=== PATIENT | male | born 1955 | race Hispanic/Latino ===

== ENCOUNTER 2016-06-10 14:59 | Inpatient (IN) | payer OTHER ==
[2016-06-10 16:03] LABS: Basophils % (Auto) 0.6 % (0.0-1.8); Eosinophils % (Auto) 5.2 % (0.0-4.3); Hemoglobin 16.3 gm/dl (11.8-15.2); Mean Corpuscular HGB Conc 34 % (32-34); Mean Corpuscular Hemoglobin 33 pg (28-32); Mean Corpuscular Volume 98 fl (84-94); Platelet Count 106 K/mm3 (140-440); Red Blood Count 4.91 M/mm3 (3.65-5.03); Red Cell Distribution Width 14.4 % (13.2-15.2); White Blood Count 6.1 K/mm3 (4.5-11.0)
[2016-06-10 16:06] LABS: Anion Gap 16 mmol/L; BUN/Creatinine Ratio 21.66; Blood Urea Nitrogen 13 mg/dL (9-20); Calcium 7.9 mg/dL (8.4-10.2); Carbon Dioxide 25 mmol/L (22-30); Chloride 102.1 mmol/L (98-107); Glucose 115 mg/dL (75-100); Potassium 4.2 mmol/L (3.6-5.0); Sodium 139 mmol/L (137-145)
[2016-06-10] MEDS ORDERED: MORPHINE IV ONE (20:57)
[2016-06-10] MEDS ORDERED: NITRO-BID 2% TP ONE (20:57)
[2016-06-10] MEDS ORDERED: ZOFRAN IV ONE (20:57)
[2016-06-10] MEDS ORDERED: ASPIRIN PO ONE (20:58)
--- NOTE | 2016-06-10 21:05 | Emergency Department Report ---
HPI - General Chief Complaint: Chest Pain Time Seen by Provider: 06/10/16 20:44 - HPI HPI: Room 26 The patient is a 60-year-old male presenting with chief complaint of chest pain the patient states his symptoms began 2 days ago (Friday evening) with chest discomfort that the patient thought was "indigestion." She states she took Prilosec but it did not help. The patient states he began to ease off but never resolved 04:00 yesterday morning. Patient states he took a trazodone and went to sleep. Yesterday the patient again have mild substernal chest discomfort and this morning at 11:00 after awakening the chest pain returned. The patient states the pain has moved from substernal to left chest. Patient does admit to slight shortness of breath but denies diaphoresis or nausea/ vomiting. Patient describes the pain as burning/squeezing in nature Location: Chest Duration: 2 days Quality: Squeezing/burning Severity: 3/10 Modifying factors: [see above] Context: [see above] Mode of transportation: Unknown ED Past Medical Hx - Past Medical History Previous Medical History?: Yes Hx Hypertension: Yes Hx Liver Disease: Yes (HEP C) Hx Arthritis: Yes Additional medical history: ALCOHOLIC. gallstones. obesity. CAD - Surgical History Past Surgical History?: Yes Additional Surgical History: L leg fracture repair (1970s). cardiac stent ~2014 - Family History Family history: no significant - Social History Smoking Status: Former Smoker (none 5 years) Substance Use Type: Prescribed - Medications Home Medications: Home Medications Medication Instructions Recorded Confirmed Last Taken Type Folic Acid [Folvite] 1 mg PO QDAY #30 tablet 12/14/14 07/30/15 Unknown Rx Metoclopramide [Reglan TAB] 10 mg PO Q6H PRN #30 tablet 12/14/14 07/30/15 Unknown Rx Metoprolol [Lopressor TAB] 50 mg PO BID #60 tablet 12/14/14 07/30/15 Unknown Rx Promethazine [Phenergan SUPPOS] 25 mg IA Q6H PRN #30 supp.rect 12/14/14 Unknown Rx Thiamine [Vitamin B-1] 100 mg PO QDAY #30 tablet 12/14/14 07/30/15 Unknown Rx oxyCODONE /ACETAMINOPHEN [Percocet 2 tab PO Q6H PRN #30 tablet 12/14/14 Unknown Rx 5/325 mg] Aspirin EC [Aspirin Enteric Coated 81 mg PO QDAY #30 tablet 08/03/15 Unknown Rx TAB] Cephalexin [Keflex] 500 mg PO Q12HR #10 cap 08/03/15 Unknown Rx Citalopram [Celexa] 20 mg PO QDAY #30 tablet 08/03/15 Unknown Rx Fluconazole [Diflucan TAB] 200 mg PO QDAY #10 tablet 08/03/15 Unknown Rx Pantoprazole [Protonix TAB] 40 mg PO BID #60 tablet 08/03/15 Unknown Rx SILVER sulfADIAZINE 400 GRAM 1 applicatio TP DAILY 10 Days 08/03/15 Unknown Rx [Thermazene 400 Gram] amLODIPine [Norvasc] 5 mg PO QDAY #30 tablet 08/03/15 Unknown Rx ED Review of Systems ROS: Stated complaint: CHEST PAIN Other details as noted in HPI Comment: All other systems reviewed and negative Constitutional: denies: chills, fever Eyes: denies: eye pain, eye discharge, vision change ENT: denies: ear pain, throat pain Respiratory: shortness of breath Cardiovascular: chest pain Endocrine: no symptoms reported Gastrointestinal: denies: abdominal pain, nausea, diarrhea Genitourinary: denies: urgency, dysuria Musculoskeletal: denies: back pain, joint swelling, arthralgia Skin: denies: rash, lesions Neurological: denies: headache, weakness, paresthesias Psychiatric: denies: anxiety, depression Hematological/Lymphatic: denies: easy bleeding, easy bruising Physical Exam - Physical Exam Vital Signs: Vital Signs 06/10/16 15:21 Temperature 97.7 F Pulse Rate 59 L Respiratory 20 Rate Blood Pressure 186/94 O2 Sat by Pulse 93 Oximetry Physical Exam: GENERAL: The patient is well-developed well-nourished male lying on stretcher not appearing to be in acute distress HEENT: Normocephalic. Atraumatic. Extraocular motions are intact. Patient has moist mucous membranes. NECK: Supple. Trachea midline CHEST/LUNGS: Clear to auscultation. There is no respiratory distress noted. HEART/CARDIOVASCULAR: Regular. There is no tachycardia. There is no gallop rub or murmur. ABDOMEN: Abdomen is soft, nontender. Patient has normal bowel sounds. There is no abdominal distention. SKIN: There is no rash. There is no diaphoresis. NEURO: The patient is awake, alert, and oriented. The patient is cooperative. The patient has normal speech and gait. MUSCULOSKELETAL: There is no evidence of acute injury. ED Course Vital Signs 06/10/16 15:21 Temperature 97.7 F Pulse Rate 59 L Respiratory 20 Rate Blood Pressure 186/94 O2 Sat by Pulse 93 Oximetry ED Medical Decision Making - Lab Data Result diagrams: 06/10/16 15:30 06/10/16 15:30 Laboratory Tests 06/10/16 06/10/16 06/10/16 15:30 15:30 18:29 WBC 6.1 RBC 4.91 Hgb 16.3 H Hct 48.0 H MCV 98 H MCH 33 H MCHC 34 RDW 14.4 Plt Count 106 L Lymph % (Auto) 26.7 Hinds % (Auto) 10.9 H Eos % (Auto) 5.2 H Baso % (Auto) 0.6 Lymph # 1.6 Hinds # 0.7 Eos # 0.3 Baso # 0.0 Seg Neutrophils % 56.6 Seg Neutrophils # 3.4 Sodium 139 Potassium 4.2 Chloride 102.1 Carbon Dioxide 25 Anion Gap 16 BUN 13 Creatinine 0.6 L Estimated GFR > 60 BUN/Creatinine Ratio 21.66 Glucose 115 H Calcium 7.9 L Troponin T < 0.010 < 0.010 - EKG Data -: EKG Interpreted by Me EKG shows normal: sinus rhythm Rate: normal - EKG Data When compared to previous EKG there are: no significant change Interpretation: unchanged when compared t (05/23/2013) - Radiology Data Radiology results: image reviewed (chest x-ray) interpreted by me: Chest x-ray-no focal infiltrates, no pneumothorax - Differential Diagnosis ACS, GERD, pericarditis, pneumothorax Critical care attestation.: If time is entered above; I have spent that time in minutes in the direct care of this critically ill patient, excluding procedure time. ED Disposition Clinical Impression: Chest pain Disposition: OP ADMITTED IP TO THIS HOSP Is pt being admited?: Yes Does the pt Need Aspirin: Yes Condition: Fair Instructions: Chest Pain (ED) Referrals: PRIMARY CARE,MD [Primary Care Provider] - 3-5 Days Time of Disposition: 21:20 (hospitalist paged)
[2016-06-10] MEDS ORDERED: MILK OF MAGNESIA PO PRN (23:05)
[2016-06-10] MEDS ORDERED: DULCOLAX PR PRN (23:05)
[2016-06-10] MEDS ORDERED: TYLENOL PO PRN (23:05)
[2016-06-10] MEDS ORDERED: ZOFRAN IV PRN (23:05)
--- NOTE | 2016-06-10 23:08 | History and Physical Report ---
History of Present Illness Date of examination: 06/10/16 Date of admission: 06/10/16 21:23 History of present illness: Patient is a 59-year-old male with known coronary artery disease, hepatitis C, hypertension, erosive esophagitis/gastritis comes emergency room with complaint of chest pain. Pain is in the epigastric area which started on resection night , intermittent in nature lasting for hours, intensity 5/10, radiating to the left substernal area. He cannot identify exacerbating or relieving factors. Admits to shortness breath, palpitation, no nausea vomiting, diaphoresis Patient denies cough, abdominal pain, hematochezia, dysuria, frequency, focal weakness, dysarthria, fever chills, polydipsia polyuria, hot or cold intolerance , easy bruisability, or rash or bleeding from mucosal membrane, rhinorrhea, epistaxis, earache, tinnitus, blurry vision, eye discharge, anxiety, depression. Other review of systems negative Past Surgical History:left knee surgery in the past) Social history: denies any tobacco, alcohol, drugs Family history: diabetes, hypertension Medications and Allergies Allergies Allergy/AdvReac Type Severity Reaction Status Date / Time No Known Allergies Allergy Verified 07/24/14 10:24 Home Medications Medication Instructions Recorded Confirmed Last Taken Type Metoprolol [Lopressor TAB] 50 mg PO BID #60 tablet 12/14/14 06/10/16 06/10/16 Rx Aspirin EC [Aspirin Enteric Coated 81 mg PO QDAY #30 tablet 08/03/15 06/10/16 Rx TAB] Prasugrel [Effient] 10 mg PO QDAY 06/10/16 06/10/16 06/10/16 History Pravastatin Sodium [Pravastatin] 40 mg PO QHS 06/10/16 06/10/16 06/10/16 History Active Meds: Active Medications Aspirin (Halfprin Ec) 81 mg PO QDAY JONATHAN Metoprolol Tartrate (Lopressor) 50 mg PO BID JONATHAN Prasugrel (Effient) 10 mg PO QDAY JONATHAN Simvastatin (Zocor) 20 mg PO QHS [facility] Exam - Physical Exam Narrative exam: Gen. appearance: Patient lying in bed, no apparent distress HEENT: Normocephalic, atraumatic, pupils equally round and reactive to light, extraocular movement intact, and no sclericterus,. No JVD or thyromegaly or nodule,neck supple, no carotid bruit ,mucous membranes moist, no exudate or erythema Heart: S1, S2, regular rate and rhythm Lungs: Clear to auscultation bilaterally, breathing comfortable Abdomen: Positive bowel sounds, nontender, nondistended, no organomegaly Extremity: No edema, cyanosis, clubbing Skin: No rash, nodules, warm, dry Neuro: Oriented 3, cranial nerves II-12 intact, speech is fluent, motor and sensory intact - Constitutional Vitals: Temp Pulse Resp BP Pulse Ox 97.6 F 56 L 20 152/71 96 06/10/16 21:40 06/10/16 22:16 06/10/16 21:40 06/10/16 22:16 06/10/16 21:40 Results - Labs CBC & Chem 7: 06/10/16 15:30 06/10/16 15:30 - Imaging and Cardiology EKG: image reviewed Chest x-ray: image reviewed Assessment and Plan Unstable angina Coronary artery disease Hypertension Hep C Admits medicine Check cardiac enzymes, consult cardiology Continue appropriate outpatient medications, start IV morphine, DVT prophylaxis
[2016-06-11 03:10] LABS: Creatine Kinase 47 units/L (55-170)
[2016-06-11 03:12] LABS: Creatine Kinase MB < 1.0 ng/mL (0.0-4.0)
--- NOTE | 2016-06-11 04:15 | Admit Criteria Form ---
Admission Criteria Documentation: CARDIOLOGY GRG Clinical Indications for Admission to Inpatient Care ( Place 'X' for any and all applicable criteria): Hospital admission is needed for appropriate care of the patient because of ANY ONE of the following (1): [ ] I. Hemodynamic instability as indicated by ALL of the following (1)(2)(3) (4)(5) [ ]a) Vital signs or other findings not as expected for chronic patient condition or baseline [ ]b) Instability indicated by ANY ONE of the following: [ ]i) Hypotension [ ]ii) Symptomatic Tachycardia unresponsive to treatment ( e.g., analgesia, fluids, sedation as indicated) [ ]iii) Inadequate perfusion indicated by ANY ONE of the following: [ ] 1) Lactic acidosis (> 2 mmol/L) [ ] 2) New abnormal capillary refill (> 3 seconds) [ ] 3) Reduced urine output [ ] 4) New altered mental status [ ]iv) Orthostatic vital sign changes unresponsive to treatment (e.g., fluids) [ ]v) IV inotropic or vasopressor medication required to maintain adequate blood pressure or perfusion [ ] II. Severe heart failure as indicated by ANY ONE of the following(17)(18) [ ]a) Respiratory distress [ ]b) Hypotension [ ]c) Anasarca (refractory to outpatient therapy) [ ]d) Cardiac arrhythmias of immediate concern [ ]e) Myocardial ischemia [ ] III. Cardiac arrhythmias or findings of immediate concern indicated by ANY ONE of the following (19)(20): [ ] a) Heart rhythms that are inherently dangerous or unstable indicated by ANY ONE of the following (21)(22)(23): [ ] i) Resuscitated ventricular fibrillation or cardiac arrest [ ] ii) Ventricular escape rhythm [ ] iii) Sustained ventricular tachycardia (30 seconds or more of ventricular rhythm at greater than 100 beats per minute) [ ] iv) Nonsustained ventricular tachycardia and ANY ONE of the following: [ ] 1) Suspected cardiac ischemia as cause or consequence of ventricular tachycardia [ ] 2) In setting of acute myocarditis [ ] b) Unstable cardiac conduction defects indicated by ANY ONE of the following(23)(24)(25) [ ] i) Type II second-degree atrioventricular block [ ]ii) Third-degree atrioventricular block [ ]iii) New-onset left bundle branch block with suspected myocardial ischemia [ ]c) Any heart rhythm and ANY ONE of the following (21)(22)(26)(27) (28) [ ] i) Continuous long-term ECG monitoring needed (e.g., initiation of drug requiring monitoring for more than 24 hours) [ ] ii) Patient has automatic implanted cardioverter defibrillator that is repeatedly firing, malfunctioning, or in need of immediate adjustment of settings beyond the scope of ambulatory or observation care [ ]d) Heart rhythms of concern due to ANY ONE of the following: [ ] i) Hypotension [ ] ii) Respiratory distress [ ] iii) Association with other significant symptoms (e.g., bradycardia with syncope or ongoing dizziness, supraventricular tachycardia with chest pain (14)(15)(17) [ ] IV. Monitoring for cardiac contusion beyond the scope of observation care needed [A](30)(31)(32) [ ] V. Surgical or device complication (e.g., valve replacement complication , pacemaker dysfunction) (35)(41)(44)(45)(46) [ ] . Inpatient palliative care needed. [B](49) Also use Inpatient Palliative Care Criteria [ ] VII. Nonbacterial thrombotic (marantic) endocarditis (36)(43)(47)(48) [X ] VIII. Cardiology condition, symptom, or finding for which emergency and observation care has failed or are not considered appropriate. [ ] IX. Acute valvular disease requiring inpatient as indicated by ANY ONE of the following (41) [ ]a) Acute valvular regurgitation (42) [ ]b) Noninfectious valvulitis (43) [ ]c) Obstructive valve thrombosis [ ]d) Paravalvular leak [ ]e) Other significant valvular disorder remaining after emergency or observation level of care (as appropriate) [ ]X. Pericardial disease requiring inpatient treatment as indicated by ANY ONE of the following (33)(34)(35)(36)(37) [ ]a) Suspected tamponade (38)(39)(40) [ ]b) Hemopericardium [ ]c) Other significant pericardial disorder remaining after emergency or observation level of care (as appropriate) [ ] XI. Cardiac ischemia beyond scope of emergency and observation care. [ ] XII. Hypertension requiring inpatient treatment as indicated by ANY ONE of the following (6)(7)(8) [ ]a) SBP greater than 220 mm Hg or DBP greater than 120 mmHg despite treatment [ ]b) SBP greater than 140 mm Hg or DBP greater than 100 mm Hg with evidence of acute end organ damage as indicated by ANY ONE of the following [ ] i) Altered mental status [ ] ii) Acute renal failure as indicated by new onset of ANY ONE of the following (9)(10)(11)(12)(13) [ ]1) 3-fold rise in serum creatinine from baseline [ ]2) Serum creatinine greater than 4 mg/dL ( 354 micromoles/L) with acute rise greater than 0.5 mg/dL (44.2 micromoles/L) [ ]3) Reduction of more than 75% in estimated glomerular filtration rate from baseline [ ]4) Estimated glomerular filtration rate less than 35 mL/min/1.73m2 (0.59 mL/sec/1.73m2) in child up to 18 years of age [ ]5) Cessation of urine output indicated by ALL of the following [ ]A. Adequate volume status [ ]B. Inadequate urine output as indicated by ANY ONE of the following [ ]a. Urine output less than 0.3 mL/kg/hr for 24 hours [ ]b. Anuria (urine output less than 0.1 mL/kg/hr) for 12 hours [ ] iii) Aortic dissection [ ] iv) Myocardial Ischemia [ ] v) Left ventricular heart failure [ ]vi) Retinal Hemorrhage [ ]vii) Other significant finding [ ]c) Hypertension in child requiring inpatient treatment as indicated by ALL of the following(14)(15)(16) [ ] i) Outpatient treatment not effective, not available, or not appropriate [ ]ii) SBP or DBP greater than 95th percentile for age [ ]iii) Evidence of acute end organ damage as indicated by ANY ONE of the following [ ]1) Altered mental status [ ]2) Acute renal failure as indicated by new onset of ANY ONE of the following(9)(10)(11)(12)(13) [ ]A. 3-fold rise in serum creatinine from baseline [ ]B. Serum creatinine greater than 4 mg/dL (354 micromoles/L) with acute rise greater than 0.5 mg/dL (44.2 micromoles/L) [ ]C. Reduction of more than 75% in estimated glomerular filtration rate from baseline [ ]D. Estimated glomerular filtration rate less than 35 mL/min/1.73m2 (0.59 mL/sec/1.73m2) in child up to 18 years of age [ ]E. Cessation of urine output indicated by ALL of the following [ ]a. Adequate volume status [ ]b. Inadequate urine output as indicated by ANY ONE of the following [ ]i) Urine output less than 0.3 mL/kg/hr for 24 hours [ ]ii) Anuria ( urine output less than 0.1 mL/kg/hr) for 12 hours [ ]3) Severe headache [ ]4) Visual disturbance [ ]5) Retinal hemorrhage [ ]6) Other significant finding [ ]XIII. Complications of transplanted heart indicated by ANY ONE of the following(61): [ ]a) Acute graft rejection requiring inpatient management (eg, intravenous immunosuppression)(62)(63) [ ]b) Acute graft heart failure indicated by ANY ONE of the following(64): [ ]i) Hemodynamic instability [ ]ii) Cardiac arrhythmias of immediate concern [ ]iii) Pulmonary edema that is very severe (eg, mechanical ventilation needed, imminent or likely, need for 100% oxygen to keep oxygen saturation above 90%) [ ]iv) Pulmonary edema that is persistent as indicated by ALL of the following: [ ]1) New need for oxygen therapy to keep oxygen saturation above 90% (or increased FiO2 need from baseline) [ ]2) Has not improved sufficiently with emergency department or observation care IV diuretics or other heart failure treatments[E] [ ]v) Altered mental status that is severe or persistent [ ]vi) Increased creatinine (new on laboratory test) with reduction of more than 50% in estimated glomerular filtration rate from baseline [ ]vii) Progressively (ongoing) rising creatinine (known from past laboratory test) with reduction of more than 25% in estimated glomerular filtration rate from baseline [ ]viii) Acute renal failure [ ]ix) Acute peripheral ischemia (eg, examination shows pulseless, cool, mottled, or cyanotic extremity) [ ]x) Pulmonary artery catheter monitoring needed [ ]xi) Other sign or symptom of heart failure requiring inpatient treatment (ie, too severe or not responsive to outpatient and observation care treatment) [ ]c) Infection requiring inpatient management (eg, Hemodynamic instability, need for intravenous antimicrobial treatment)(66)(67)(68)(69)(70) [ ]d) Cardiac allograft vasculopathy requiring inpatient management ( eg evidence of cardiac ischemia)(71) [ ]e) Other complication of transplanted heart (eg, stroke, severe pulmonary hypertension, severe valvular dysfunction) requiring inpatient management(72) The original [facility] [employer] content created by [facility] has been revised. The portions of the content which have been revised are identified through the use of italic text or in bold, and [facility] has neither reviewed nor approved the modified material. All other unmodified content is copyright [facility] [employer]. Please see references footnoted in the original [facility] [employer] edition 2016 Admission Criteria Met: Yes
[2016-06-11 05:32] LABS: Anion Gap 15 mmol/L; Blood Urea Nitrogen 16 mg/dL (9-20); Calcium 8.1 mg/dL (8.4-10.2); Carbon Dioxide 29 mmol/L (22-30); Chloride 102.8 mmol/L (98-107); Glucose 119 mg/dL (75-100); Potassium 4.6 mmol/L (3.6-5.0); Sodium 142 mmol/L (137-145)
[2016-06-11 05:39] LABS: Basophils % (Auto) 0.7 % (0.0-1.8); Eosinophils % (Auto) 4.3 % (0.0-4.3); Hemoglobin 15.5 gm/dl (11.8-15.2); Mean Corpuscular HGB Conc 34 % (32-34); Mean Corpuscular Hemoglobin 33 pg (28-32); Mean Corpuscular Volume 98 fl (84-94); Red Blood Count 4.69 M/mm3 (3.65-5.03); Red Cell Distribution Width 14.1 % (13.2-15.2); White Blood Count 7.1 K/mm3 (4.5-11.0)
[2016-06-11 06:01] LABS: Platelet Count 95 K/mm3 (140-440)
--- NOTE | 2016-06-11 08:28 | XRay Report ---
AP CHEST : 06/10/16 14:59:00 CLINICAL: Chest pain. COMPARISON:07/29/15 FINDINGS: Stable mild cardiomegaly. Normal pulmonary vessels. The lungs are normally expanded and clear. The bones and soft tissues are unremarkable. IMPRESSION: Mild cardiomegaly but no CHF.
[2016-06-11] MEDS ORDERED: LEXISCAN IV ONE ×2 (08:45→09:08)
[2016-06-11 09:03] LABS: Creatine Kinase 49 units/L (55-170)
[2016-06-11 09:06] LABS: Creatine Kinase MB < 1.0 ng/mL (0.0-4.0)
[2016-06-11] MEDS ORDERED: EFFIENT PO SCH (10:00)
[2016-06-11] MEDS ORDERED: LOPRESSOR PO SCH (10:00)
[2016-06-11] MEDS ORDERED: HALFPRIN EC PO SCH (10:00)
[2016-06-11] MEDS ORDERED: NORCO 5/325 PO PRN (12:00)
--- NOTE | 2016-06-11 14:27 | Consultation ---
History of Present Illness Consult date: 06/11/16 Requesting physician: GORDY JACQUES Consult reason: chest pain History of present illness: The patient is a 60 year old male who presented with complaints of intermittent substernal chest pain ongoing since Friday. He states the pain "feels like indigestion" but is unable to identify any exacerbating or relieving factors. He states he took Prilosec at home with no improvement in his pain. No shortness of breath, palpitations, nausea, vomiting or diaphoresis. Troponin negative x 4. Lexiscan thallium stress test this morning was negative for ischemia. In 08/2014, he underwent cardiac cath and PCI of his mid OM with CHLOÉ. Cath revealed 50% proximal and 50% mid-distal RCA lesion. Past History Past Medical History: CAD, hepatitis (Hepatitis C), hypertension, hyperlipidemia , other (pancreatitis, alcoholic gastritis/esophagitis) Past Surgical History: PTCA, Other (left knee surgery) Social history: lives with family. denies: smoking, alcohol abuse, prescription drug abuse, IV drug use, full code Family history: no significant family history Medications and Allergies Allergies Allergy/AdvReac Type Severity Reaction Status Date / Time No Known Allergies Allergy Verified 07/24/14 10:24 Home Medications Medication Instructions Recorded Confirmed Last Taken Type Metoprolol [Lopressor TAB] 50 mg PO BID #60 tablet 12/14/14 06/10/16 06/10/16 Rx Aspirin EC [Aspirin Enteric Coated 81 mg PO QDAY #30 tablet 08/03/15 06/10/16 Rx TAB] Prasugrel [Effient] 10 mg PO QDAY 06/10/16 06/10/16 06/10/16 History Pravastatin Sodium [Pravastatin] 40 mg PO QHS 06/10/16 06/10/16 06/10/16 History Active Meds: Active Medications Acetaminophen (Tylenol) 650 mg PO Q4H PRN PRN Reason: Pain MILD(1-3)/Fever >100.5/NORIEGA Acetaminophen/Hydrocodone Bitart ([place] 5/325) 1 each PO Q6H PRN PRN Reason: Pain, Moderate (4-6) Last Admin: 06/11/16 11:54 Dose: 1 each Aspirin (Halfprin Ec) 81 mg PO QDAY JONATHAN Last Admin: 06/11/16 13:24 Dose: 81 mg Bisacodyl (Dulcolax) 10 mg [place] QDAY PRN PRN Reason: Constipation unrelieved by [facility] Magnesium Hydroxide (Milk Of Magnesia) 30 ml PO Q4H PRN PRN Reason: Constipation Metoprolol Tartrate (Lopressor) 50 mg PO BID [facility] Ondansetron HCl (Zofran) 4 mg IV Q8H PRN PRN Reason: N/V unrelieved by Reglan Prasugrel (Effient) 10 mg PO QDAY JONATHAN Simvastatin (Zocor) 20 mg PO QHS [facility] Review of Systems Constitutional: no fever, no chills Ears, nose, mouth and throat: no nasal congestion, no nasal discharge, no sinus pressure Cardiovascular: chest pain, no palpitations Respiratory: no cough, no congestion, no wheezing Gastrointestinal: no abdominal pain, no nausea, no vomiting, no diarrhea Genitourinary Male: no dysuria, no hematuria Musculoskeletal: no neck stiffness, no neck pain, no myalgias Integumentary: no rash, no pruritis Neurological: no parathesias, no numbness, no tingling, no headaches Endocrine: no cold intolerance, no heat intolerance Hematologic/Lymphatic: no easy bruising, no easy bleeding Allergic/Immunologic: no urticaria, no wheezing Physical Examination Vital Signs Temp Pulse Resp BP Pulse Ox 97.7 F 59 L 20 186/94 93 06/10/16 15:21 06/10/16 15:21 06/10/16 15:21 06/10/16 15:21 06/10/16 15:21 General appearance: no acute distress, obese HEENT: Positive: Normocephaly, Mucus Membranes Moist Neck: Positive: neck supple, trachea midline Cardiac: Positive: Reg Rate and Rhythm, S1/S2, Systolic Murmur Lungs: Positive: clear to auscultation Neuro: Positive: Grossly Intact Abdomen: Positive: Soft, Active Bowel Sounds. Negative: Tender Skin: Positive: Clear. Negative: Rash Extremities: Absent: edema Results 06/11/16 04:26 06/11/16 04:26 Cardiac Enzymes 06/11/16 06/11/16 Range/Units 02:29 08:11 CK-MB (CK-2) < 1.0 < 1.0 (0.0-4.0) ng/mL CBC 06/11/16 Range/Units 04:26 WBC 7.1 (4.5-11.0) K/mm3 RBC 4.69 (3.65-5.03) M/mm3 Hgb 15.5 H (11.8-15.2) gm/dl Hct 46.0 H (35.5-45.6) % Plt Count 95 L (140-440) K/mm3 Lymph # 2.1 (1.2-5.4) K/mm3 Hale # 0.7 (0.0-0.8) K/mm3 Eos # 0.3 (0.0-0.4) K/mm3 Baso # 0.1 (0.0-0.1) K/mm3 Comprehensive Metabolic Panel 06/11/16 Range/Units 04:26 Sodium 142 (137-145) mmol/L Potassium 4.6 (3.6-5.0) mmol/L Chloride 102.8 (98-107) mmol/L Carbon Dioxide 29 (22-30) mmol/L BUN 16 (9-20) mg/dL Creatinine 0.8 (0.8-1.5) mg/dL Glucose 119 H (75-100) mg/dL Calcium 8.1 L (8.4-10.2) mg/dL - Imaging and Cardiology Echo: report reviewed (08/2014: EF 50-55%, mild ) EKG: image reviewed EKG interpretations - Telemetry EKG Rhythm: Sinus Rhythm - EKG Sinus rhythms and dysrhythmias: sinus rhythm Assessment and Plan Lexiscan thallium stress test negative for ischemia. Add oral nitrates. Patient may be discharged home from a cardiac standpoint. Follow up in the office with Dr. Baeza in one week. - Patient Problems (1) Chest pain Current Visit: Yes Status: Resolved Qualifiers: Chest pain type: C (2) CAD (coronary artery disease) Current Visit: No Status: Chronic Qualifiers: Coronary Disease-Associated Artery/Lesion type: [place] artery [place] vs. transplanted heart: [place] heart Associated angina: A (3) S/P PTCA (percutaneous transluminal coronary angioplasty) Current Visit: No Status: Chronic (4) Hypertension Current Visit: Yes Status: Chronic Qualifiers: Hypertension type: H (5) H/O ETOH abuse Current Visit: No Status: Chronic
--- NOTE | 2016-06-11 14:50 | Discharge Summary ---
Providers - Providers Date of Admission: 06/10/16 21:23 Date of discharge: 06/11/16 Attending physician: GORDY JACQUES 06/10/16 Consult to Cardiac Rehabilitation [CONS] Routine Reason For Exam: Phase 1 06/11/16 08:19 Consult to Physician [CONS] Routine Consulting Provider: VINCENT CALERO Reason For Exam: chest pain, CAD Place consult to:: Dr. 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 Hospitalization Condition: Fair Disposition: DISCHARGED TO HOME OR SELFCARE - Discharge Diagnoses (1) GERD (gastroesophageal reflux disease) Status: Acute Qualifiers: Esophagitis presence: E (2) Chest pain Status: Resolved Qualifiers: Chest pain type: C Comment: due to GERD (3) Hyperlipidemia Status: Chronic Qualifiers: Hyperlipidemia type: H (4) Hypertension Status: Chronic Qualifiers: Hypertension type: H Core Measure Documentation - Palliative Care Palliative Care/ Comfort Measures: Not Applicable - Core Measures Any of the following diagnoses?: none Exam - Constitutional Vitals: Temp Pulse Resp BP Pulse Ox 98.0 F 95 H 17 137/64 94 06/11/16 11:29 06/11/16 11:29 06/11/16 12:54 06/11/16 11:29 06/11/16 11:29 Plan Activity: advance as tolerated Diet: low fat, low cholesterol, low salt Additional Instructions: 1.Follow up with PCP or [facility] in 3-5 days. 2.Follow up with Dr. Samson in 3-5 days Follow up with: PRIMARY CARE, [Primary Care Provider] - 3-5 Days Prescriptions: ISOSORBIDE MONOnitrate [Imdur ER] 30 mg PO QDAY #30 tablet Nitroglycerin [Nitrostat] 0.4 mg SL Q5M PRN #30 tab PRN Reason: Chest Pain
[2016-06-11 15:44] VITALS: BP 129/60
[2016-06-11] MEDS ORDERED: ZOCOR PO SCH (22:00)
--- NOTE | 2016-06-12 02:38 | Treadmill Report ---
NUCLEAR STUDY REASON FOR STUDY: Chest pain. IMAGING PROTOCOL: The patient received 10 mCi of Technetium 99m Tetrofosmin for resting image and 28 mCi of Technetium 99m Tetrofosmin for stress imaging. The imaging for the whole procedure was completed 30-90 minutes following the initial injection of Technetium 99m tetrofosmin. The SPECT imaging in the 180 degree arc was performed in the right anterior oblique projection. Computerized reconstruction of the images was performed for analysis. IMAGING RESULTS: Normal cavity size from stress to rest. Normal distribution of radionuclide in the anterior, inferior, septal, and apical regions. Gated SPECT, EF 67% with no wall motion abnormality. The patient infused Lexiscan with no EKG changes. SUMMARY: 1. Negative Lexiscan EKG. 2. Normal rest and stress myocardial perfusion scan. No significant stress ischemia. No wall motion abnormality. Gated SPECT, EF 67%. JOB# [id number] KOBI/VILLA
[2016-06-12] MEDS ORDERED: IMDUR PO SCH (10:00)
== END 2016-06-11 15:45 | disposition home or self-care (01) | DRG 392 ==
LOC: ED 14:59 → 4A 21:23
PROVIDERS: ADMIT Internal Medicine; ATTEND Internal Medicine
DX: K21.9 Gastro-esophageal reflux disease without esophagitis (principal); I25.110 Atherosclerotic heart disease of native coronary artery with unstable angina pectoris; Z68.43 Body mass index [BMI] 50.0-59.9, adult; I10 Essential (primary) hypertension; M19.90 Unspecified osteoarthritis, unspecified site; E66.9 Obesity, unspecified; Z87.19 Personal history of other diseases of the digestive system; Z98.61 Coronary angioplasty status; Z83.3 Family history of diabetes mellitus; Z82.49 Family history of ischemic heart disease and other diseases of the circulatory system; B19.20 Unspecified viral hepatitis C without hepatic coma; E78.5 Hyperlipidemia, unspecified; Z98.890 Other specified postprocedural states; F10.20 Alcohol dependence, uncomplicated; Z87.891 Personal history of nicotine dependence
CPT/HCPCS: 36415; 71010; 78452; 80048; 82550; 82553; 84484; 85025; 93005; 93010; 93017; 96374; 96375; A9502; J2270; J2405; J2785

== ENCOUNTER 2017-04-10 09:06 | Outpatient (CLI) | payer OTHER ==
--- NOTE | 2017-04-10 09:58 | XRay Report ---
LUMBOSACRAL SPINE, 3 VIEWS: History: Back pain Findings: Moderate disc space narrowing and facet arthropathy or identified at L5-S1. The remaining levels are within normal limits. There is no evidence for compression deformity, subluxation or bone lesion. Aortic calcifications are noted. Impression: Lumbar spondylosis. No acute process.
--- NOTE | 2017-04-10 09:59 | XRay Report ---
BILATERAL KNEES, 2 VIEWS History: Bilateral knee pain. Findings: Moderate osteoarthritic changes are identified in both knees. The medial compartments are most affected. No evidence for fracture, bone lesion or large joint effusion. Impression: Osteoarthritis.
== END 2017-04-10 09:07 | disposition home or self-care (01) ==
LOC: XRAY 09:06
PROVIDERS: ATTEND Internal Medicine
DX: M17.0 Bilateral primary osteoarthritis of knee (principal); M47.896 Other spondylosis, lumbar region; I70.0 Atherosclerosis of aorta
CPT/HCPCS: 72100

== ENCOUNTER 2019-02-18 14:05 | Inpatient (IN) | payer MEDICAID, OTHER ==
[2019-02-18] MEDS ORDERED: ONDANSETRON 4 MG/2 ML INJ IV ONE ×3 (15:05→18:30)
[2019-02-18] MEDS ORDERED: ASPIRIN 81 MG TAB CHEW PO ONE (15:05)
[2019-02-18] MEDS ORDERED: SODIUM CHLORIDE 0.9% 1000 ML 1,000 ML IV ONE ×2 (15:05→17:09)
[2019-02-18] MEDS ORDERED: SODIUM CHLORIDE 0.9% 1000 ML 1,000 ML ONE (15:08)
--- NOTE | 2019-02-18 15:11 | Emergency Department Report ---
ED Chest Pain HPI - General Chief Complaint: Nausea/Vomiting/Diarrhea Stated Complaint: ABD PAIN Time Seen by Provider: 02/18/19 14:59 Source: patient Mode of arrival: Stretcher Limitations: No Limitations - History of Present Illness Initial Comments: Patient is 63 years old male with history of coronary artery disease, status post stent years ago. Patient presented to the ER complaining off chest pain, substernal was no radiation. Patient stated that pain started last night. Patient stated that he started having nausea vomiting and diarrhea this morning. Patient is actively having diarrhea in the ER room. He denied any abdominal pain, fever or chills. MD Complaint: chest pain -: Last night Onset: during rest Pain Location: substernal Pain Radiation: none Severity: moderate Severity scale (0 -10): 4 Quality: heaviness Consistency: intermittent - Related Data Home Medications Medication Instructions Recorded Confirmed Last Taken Pravastatin Sodium [Pravastatin] 40 mg PO QHS 06/10/16 06/10/16 06/10/16 Previous Rx's Medication Instructions Recorded Last Taken Type Metoprolol [Lopressor TAB] 50 mg PO BID #60 tablet 12/14/14 06/10/16 Rx Aspirin EC [Halfprin EC] 81 mg PO QDAY #30 tablet 08/03/15 06/10/16 Rx ISOSORBIDE MONOnitrate [Imdur ER] 30 mg PO QDAY #30 tablet 06/11/16 Unknown Rx Nitroglycerin [Nitrostat] 0.4 mg SL Q5M PRN #30 tab 06/11/16 Unknown Rx Allergies Allergy/AdvReac Type Severity Reaction Status Date / Time No Known Allergies Allergy Verified 07/24/14 10:24 Heart Score - HEART Score History: Moderately suspicious EKG: Non-specific Age: 45-65 Risk factors: > 3 risk factors or hx of atherosclerotic disease Troponin: < normal limit HEART Score: 5 - Critical Actions Critical Actions: 4-6 pts:12-16.6% risk of adverse cardiac event. Should be admitted ED Review of Systems ROS: Stated complaint: ABD PAIN Other details as noted in HPI Comment: All other systems reviewed and negative Constitutional: denies: chills, fever Respiratory: denies: cough, shortness of breath, SOB with exertion, wheezing Cardiovascular: chest pain. denies: palpitations Gastrointestinal: nausea, vomiting, diarrhea. denies: abdominal pain, constipation, hematemesis, melena, hematochezia Genitourinary: denies: urgency Musculoskeletal: denies: back pain Neurological: denies: headache ED Past Medical Hx - Past Medical History Previous Medical History?: Yes Hx Hypertension: Yes Hx Heart Attack/AMI: No Hx Congestive Heart Failure: No Hx Diabetes: No Hx Liver Disease: Yes (Hep C) Hx Arthritis: Yes Hx Psychiatric Treatment: No Hx Asthma: No Hx COPD: No Hx HIV: No Additional medical history: ALCOHOLIC. gallstones. obesity. CAD - Surgical History Past Surgical History?: Yes Hx Coronary Stent: Yes (1 cardiac stent, 05/2013) Hx Pacemaker: No Additional Surgical History: L leg fracture repair (). cardiac stent ~2014 - Social History Smoking Status: Unknown if ever smoked Substance Use Type: Alcohol - Medications Home Medications: Home Medications Medication Instructions Recorded Confirmed Last Taken Type Metoprolol [Lopressor TAB] 50 mg PO BID #60 tablet 12/14/14 06/10/16 06/10/16 Rx Aspirin EC [Halfprin EC] 81 mg PO QDAY #30 tablet 08/03/15 06/10/16 06/10/16 Rx Pravastatin Sodium [Pravastatin] 40 mg PO QHS 06/10/16 06/10/16 06/10/16 History ISOSORBIDE MONOnitrate [Imdur ER] 30 mg PO QDAY #30 tablet 06/11/16 Unknown Rx Nitroglycerin [Nitrostat] 0.4 mg SL Q5M PRN #30 tab 06/11/16 Unknown Rx ED Physical Exam - General Limitations: No Limitations General appearance: alert, in no apparent distress, other (patient is actively h aving diarrhea in his room) - Head Head exam: Present: atraumatic, normocephalic, normal inspection - Eye Eye exam: Present: normal appearance - ENT ENT exam: Present: mucous membranes dry - Neck Neck exam: Present: normal inspection, full ROM. Absent: tenderness, meningismus, lymphadenopathy, thyromegaly - Respiratory Respiratory exam: Present: normal lung sounds bilaterally - Cardiovascular Cardiovascular Exam: Present: regular rate, normal rhythm, normal heart sounds - GI/Abdominal GI/Abdominal exam: Present: soft, normal bowel sounds. Absent: distended, tenderness, guarding, rebound, rigid, mass, bruit, pulsatile mass, hernia - Extremities Exam Extremities exam: Present: normal inspection, full ROM, normal capillary refill. Absent: tenderness, pedal edema, calf tenderness - Back Exam Back exam: Present: normal inspection, full ROM. Absent: CVA tenderness (R), CVA tenderness (L) - Neurological Exam Neurological exam: Present: alert, oriented X3, CN II-XII intact - Psychiatric Psychiatric exam: Present: normal mood - Skin Skin exam: Present: warm, intact, normal color ED Course Vital Signs 02/18/19 02/18/19 14:31 16:47 Temperature 98.5 F Pulse Rate 71 74 Respiratory 16 16 Rate Blood Pressure 121/47 Blood Pressure 106/54 [Right] O2 Sat by Pulse 95 94 Oximetry ANTHONY score - Anthony Score Age > 65: (0) No Aspirin use within the Past 7 Days: (0) No 3 or more CAD Risk Factors: (1) Yes 2 or more Angina events in past 24 hrs: (1) Yes Known CAD with more than 50% Stenosis: (1) Yes Elevated Cardiac Markers: (0) No ST Deviation Greater than 0.5mm: (0) No ANTHONY Score: 3 ED Medical Decision Making - Lab Data Result diagrams: 02/18/19 15:08 02/18/19 15:08 - EKG Data -: EKG Interpreted by [facility] EKG shows normal: sinus rhythm Rate: normal - EKG Data Interpretation: no acute changes - Radiology Data Radiology results: report reviewed - Medical Decision Making Patient is 63 years old male with history of coronary artery disease, status post stent years ago. Patient presented to the ER complaining off chest pain, substernal was no radiation. Patient stated that pain started last night. Patient stated that he started having nausea vomiting and diarrhea this morning. Patient is actively having diarrhea in the ER room. He denied any abdominal pain, fever or chills. Patient labs showed lipase consistent with acute pancreatitis. CT abdomen and pelvis showed no acute abnormalities. I discussed the patient with Dr. Echavarria, agreed to admit the patient to medical service. Critical care attestation.: If time is entered above; I have spent that time in minutes in the direct care of this critically ill patient, excluding procedure time. ED Disposition Clinical Impression: Abdominal pain, Chest pain, Acute pancreatitis, Nausea vomiting and diarrhea Disposition: OP ADMIT IP TO THIS HOSP Is pt being admited?: Yes Condition: Stable Instructions: Chest Pain (ED) Referrals: [facility], MD [Primary Care Provider] - 3-5 Days
[2019-02-18 15:29] LABS: Basophils # (Auto) 0.1 K/mm3 (0.0-0.1); Basophils % (Auto) 0.6 % (0.0-1.8); Eosinophils # (Auto) 0.2 K/mm3 (0.0-0.4); Eosinophils % (Auto) 2.2 % (0.0-4.3); Hematocrit 54.2 % (35.5-45.6); Hemoglobin 18.8 gm/dl (11.8-15.2); Lymphocytes # (Auto) 0.9 K/mm3 (1.2-5.4); Lymphocytes % (Auto) 9.6 % (13.4-35.0); Mean Corpuscular HGB Conc 35 % (32-34); Mean Corpuscular Volume 97 fl (84-94); Monocytes # (Auto) 0.4 K/mm3 (0.0-0.8); Monocytes % (Auto) 4.7 % (0.0-7.3); Platelet Count 115 K/mm3 (140-440); Red Blood Count 5.59 M/mm3 (3.65-5.03); Red Cell Distribution Width 14.3 % (13.2-15.2)
[2019-02-18 15:49] LABS: Alanine Aminotransferase 47 units/L (7-56); Albumin 3.1 g/dL (3.9-5); BUN/Creatinine Ratio 23; Blood Urea Nitrogen 21 mg/dL (9-20); Calcium 8.9 mg/dL (8.4-10.2); Hemolysis Index 9
--- NOTE | 2019-02-18 16:28 | XRay Report ---
CHEST 1 VIEW INDICATION: Chest Pain. COMPARISON: 06/10/2016 FINDINGS: Support devices: None. Heart: Cardiomegaly accentuated by low lung volumes. Pulmonary vasculature: Increased central vascular congestion and indistinct pulmonary vessels. Lungs/Pleura: No airspace disease or pleural effusion. Additional findings: None. IMPRESSION: 1. Mild CHF. Signer Name: Dandy Christianson MD Signed: 02/18/2019 4:23 PM Workstation Name: [id number]
[2019-02-18 16:43] LABS: INR 1.06 (0.87-1.13)
[2019-02-18 16:44] LABS: Partial Thromboplastin Time 32.1 Sec. (24.2-36.6)
[2019-02-18] MEDS ORDERED: MORPHINE 4 MG/1 ML INJ IV ONE (17:09)
[2019-02-18] MEDS ORDERED: HYDROmorphone 1 MG/1 ML INJ IV ONE (18:28)
--- NOTE | 2019-02-18 18:31 | History and Physical Report ---
History of Present Illness Date of examination: 02/18/19 Date of admission: 02/18/2019 Chief complaint: Chest pain and epigastric pain for 1 day Nausea vomiting for 1 day History of present illness: 63-year-old male with past medical history of hypertension, coronary artery disease and hyperlipidemia comes in for severe epigastric pain and substernal chest pain which is about 8 on a scale of 1-10. Sharp in nature. No radiation. Intermittent in nature. Associated with nausea and vomiting 6. Couple of loose bowel movements. No fever or chills. No exacerbating or relieving factors. Patient had a stent placed couple of years ago. No alcohol since 3 years. Past Medical History Previous Medical History?: Yes Hypertension: Yes Liver Disease: Yes (Hep C) Arthritis: Yes Additional medical history: ALCOHOLIC. gallstones. obesity. CAD Surgical History Past Surgical History?: Yes Coronary Stent: Yes (1 cardiac stent, 05/2013) Additional Surgical History: L leg fracture repair () Social History Smoking Status: No smoking Substance Use Type: Alcohol regularly until 3 years ago Family history Htn Medications Home Medications: Home Medications Medication Instructions Recorded Confirmed Last Taken Type Metoprolol [Lopressor TAB] 50 mg PO BID #60 tablet 12/14/14 06/10/16 06/10/16 Rx Aspirin EC [Halfprin EC] 81 mg PO QDAY #30 tablet 08/03/15 06/10/16 06/10/16 Rx Pravastatin Sodium [Pravastatin] 40 mg PO QHS 06/10/16 06/10/16 06/10/16 History ISOSORBIDE MONOnitrate [Imdur ER] 30 mg PO QDAY #30 tablet 06/11/16 Unknown Rx Nitroglycerin [Nitrostat] 0.4 mg SL Q5M PRN #30 tab 06/11/16 Unknown Rx Review of Systems ROS: Stated complaint: ABD PAIN Other details as noted in HPI Comment: All other systems reviewed and negative Constitutional: denies: chills, fever Respiratory: denies: cough, shortness of breath, SOB with exertion, wheezing Cardiovascular: chest pain. denies: palpitations Gastrointestinal: nausea, vomiting, diarrhea. Severe abdominal pain. Genitourinary: denies: urgency Musculoskeletal: denies: back pain Neurological: denies: headache 14 point review of systems done--otherwise negative Medications and Allergies Allergies Allergy/AdvReac Type Severity Reaction Status Date / Time No Known Allergies Allergy Verified 07/24/14 10:24 Home Medications Medication Instructions Recorded Confirmed Last Taken Type Atorvastatin [Lipitor Tab] 80 mg PO QHS 02/18/19 02/18/19 02/17/19 History Carvedilol [Coreg] 12.5 mg PO BID 02/18/19 02/18/19 02/17/19 History Lisinopril [Zestril] 20 mg PO QDAY 02/18/19 02/18/19 02/17/19 History Exam - Constitutional Vitals: Temp Pulse Resp BP Pulse Ox 98.5 F 74 16 106/54 94 02/18/19 14:31 02/18/19 16:47 02/18/19 16:47 02/18/19 16:47 02/18/19 16:47 General appearance: Present: mild distress, well-nourished - EENT Eyes: Present: PERRL ENT: hearing intact, clear oral mucosa - Neck Neck: Present: supple, normal ROM - Respiratory Respiratory effort: normal Respiratory: bilateral: CTA - Cardiovascular Heart rate: 68 Rhythm: regular Heart Sounds: Present: S1 & S2. Absent: rub, click - Extremities Extremities: no ischemia, pulses intact, pulses symmetrical, No edema Peripheral Pulses: within normal limits - Abdominal General gastrointestinal: Present: soft, tender, non-distended, normal bowel sounds Localized gastrointestinal: tender: epigastric periumbilical, guarding: epigastric periumbilical, rebound: epigastric periumbilical Male genitourinary: Present: normal - Rectal Rectal Exam: deferred - Integumentary Integumentary: Present: clear, warm, dry - Musculoskeletal Musculoskeletal: gait normal, strength equal bilaterally - Psychiatric Psychiatric: appropriate mood/affect, intact judgment & insight - Neurologic Neurologic: CNII-XII intact, moves all extremities - Allied Health Allied health notes reviewed: nursing, case management Results - Labs CBC & Chem 7: 02/19/19 05:00 02/19/19 Unknown Labs: Laboratory Last Values WBC 9.0 K/mm3 (4.5-11.0) 02/18/19 15:08 RBC 5.59 M/mm3 (3.65-5.03) H 02/18/19 15:08 Hgb 18.8 gm/dl (11.8-15.2) H 02/18/19 15:08 Hct 54.2 % (35.5-45.6) H 02/18/19 15:08 MCV 97 fl (84-94) H 02/18/19 15:08 MCH 34 pg (28-32) H 02/18/19 15:08 MCHC 35 % (32-34) H 02/18/19 15:08 RDW 14.3 % (13.2-15.2) 02/18/19 15:08 Plt Count 115 K/mm3 (140-440) L 02/18/19 15:08 Lymph % (Auto) 9.6 % (13.4-35.0) L 02/18/19 15:08 [place] % (Auto) 4.7 % (0.0-7.3) 02/18/19 15:08 Eos % (Auto) 2.2 % (0.0-4.3) 02/18/19 15:08 Baso % (Auto) 0.6 % (0.0-1.8) 02/18/19 15:08 Lymph # 0.9 K/mm3 (1.2-5.4) L 02/18/19 15:08 [place] # 0.4 K/mm3 (0.0-0.8) 02/18/19 15:08 Eos # 0.2 K/mm3 (0.0-0.4) 02/18/19 15:08 Baso # 0.1 K/mm3 (0.0-0.1) 02/18/19 15:08 Seg Neutrophils % 82.9 % (40.0-70.0) H 02/18/19 15:08 Seg Neutrophils # 7.5 K/mm3 (1.8-7.7) 02/18/19 15:08 PT 13.7 Sec. (12.2-14.9) 02/18/19 15:08 INR 1.06 (0.87-1.13) 02/18/19 15:08 APTT 32.1 Sec. (24.2-36.6) 02/18/19 15:08 Sodium 138 mmol/L (137-145) 02/18/19 15:08 Potassium 3.5 mmol/L (3.6-5.0) L 02/18/19 15:08 Chloride 103.9 mmol/L (98-107) 02/18/19 15:08 Carbon Dioxide 20 mmol/L (22-30) L 02/18/19 15:08 Anion Gap 18 mmol/L 02/18/19 15:08 BUN 21 mg/dL (9-20) H 02/18/19 15:08 Creatinine 0.9 mg/dL (0.8-1.5) 02/18/19 15:08 Estimated GFR > 60 ml/min 02/18/19 15:08 BUN/Creatinine Ratio 23 % 02/18/19 15:08 Glucose 164 mg/dL (75-100) H 02/18/19 15:08 Calcium 8.9 mg/dL (8.4-10.2) 02/18/19 15:08 Total Bilirubin 3.80 mg/dL (0.1-1.2) H 02/18/19 15:08 AST 71 units/L (5-40) H 02/18/19 15:08 ALT 47 units/L (7-56) 02/18/19 15:08 Alkaline Phosphatase 117 units/L (35-129) 02/18/19 15:08 Troponin T < 0.010 ng/mL (0.00-0.029) 02/18/19 15:08 Total Protein 7.4 g/dL (6.3-8.2) 02/18/19 15:08 Albumin 3.1 g/dL (3.9-5) L 02/18/19 15:08 Albumin/Globulin Ratio 0.7 % 02/18/19 15:08 Lipase 1104 units/L (13-60) H 02/18/19 15:08 Short CBC 02/18/19 Range/Units 15:08 WBC 9.0 (4.5-11.0) K/mm3 Hgb 18.8 H (11.8-15.2) gm/dl Hct 54.2 H (35.5-45.6) % Plt Count 115 L (140-440) K/mm3 BMP 02/18/19 15:08 Sodium 138 Potassium 3.5 L Chloride 103.9 Carbon Dioxide 20 L BUN 21 H Creatinine 0.9 Glucose 164 H Calcium 8.9 Cardiac Enzymes 02/18/19 Range/Units 15:08 Troponin T < 0.010 (0.00-0.029) ng/mL Liver Function 02/18/19 Range/Units 15:08 Total Bilirubin 3.80 H (0.1-1.2) mg/dL AST 71 H (5-40) units/L ALT 47 (7-56) units/L Alkaline Phosphatase 117 (35-129) units/L Albumin 3.1 L (3.9-5) g/dL Short CBC 02/18/19 Range/Units 15:08 WBC 9.0 (4.5-11.0) K/mm3 Hgb 18.8 H (11.8-15.2) gm/dl Hct 54.2 H (35.5-45.6) % Plt Count 115 L (140-440) K/mm3 BMP 02/18/19 15:08 Sodium 138 Potassium 3.5 L Chloride 103.9 Carbon Dioxide 20 L BUN 21 H Creatinine 0.9 Glucose 164 H Calcium 8.9 Cardiac Enzymes 02/18/19 Range/Units 15:08 Troponin T < 0.010 (0.00-0.029) ng/mL Liver Function 02/18/19 Range/Units 15:08 Total Bilirubin 3.80 H (0.1-1.2) mg/dL AST 71 H (5-40) units/L ALT 47 (7-56) units/L Alkaline Phosphatase 117 (35-129) units/L Albumin 3.1 L (3.9-5) g/dL - Imaging and Cardiology EKG: report reviewed (normal sinus rhythm, heart rate of 67/m, low-voltage, consider anterolateral infarct.) Chest x-ray: report reviewed (mild CHF) CT scan - abdomen: report reviewed Imaging and Cardiology: CT abdomen/pelvis IMPRESSION: 1. Evidence of moderate acute pancreatitis without obvious complication 2. Cholelithiasis without acute change seen 3. Calcification focally of the wall the gallbladder. 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 Follow-up evaluation is recommended. 4. Fatty infiltration of the liver 5. Patulous esophagus may suggest gastroesophageal reflux 6. Prominent coronary artery calcifications 7. Mild bilateral nephrolithiasis without acute change seen 8. Distention of small bowel probably relates to an adynamic ileus and the acute pancreatitis. I do not believe this is an obstructive pattern. RUQ Sono IMPRESSION: 1. Cholelithiasis without definite sonographic evidence for acute cholecystitis. 2. Mild hepatic steatosis. Assessment and Plan Advance Directives: Yes (full code) VTE prophylaxis?: Chemical Plan of care discussed with patient/family: Yes - Patient Problems (1) Acute pancreatitis Current Visit: Yes Status: Acute Qualifiers: Pancreatitis type: unspecified pancreatitis type Plan to address problem: Lipase is around 1100 We will keep the patient nothing by mouth IV Dilaudid 1 mg every 3 when necessary IV fluids for now (2) SIRS (systemic inflammatory response syndrome) Current Visit: Yes Status: Acute Plan to address problem: IV Abx (3) Elevated troponin Current Visit: Yes Status: Acute Plan to address problem: Trend and cardiolgy consult (4) Polycythemia due to fall in plasma volume Current Visit: Yes Status: Acute Plan to address problem: IV fluids for now Hemoconcentration Secondary to volume depletion (5) Hypokalemia Current Visit: Yes Status: Acute Plan to address problem: Supplemented (6) Chest pain Current Visit: Yes Status: Acute Qualifiers: Chest pain type: unspecified Qualified Code(s): R07.9 - Chest pain, unspecified Plan to address problem: Secondary to reflux and pancreatitis Serial troponins Pain control (7) Reflux esophagitis Current Visit: Yes Status: Acute Plan to address problem: IV Protonix for now (8) Hypertension Current Visit: Yes Status: Chronic Qualifiers: Hypertension type: essential hypertension Qualified Code(s): I10 - Essential (primary) hypertension Plan to address problem: Catapres patch TTS 1 every weekly (9) Coronary artery disease Current Visit: Yes Status: Chronic Qualifiers: Coronary Disease-Associated Artery/Lesion type: [place] artery [place] vs. transplanted heart: [place] heart Plan to address problem: Hold isosorbide mononitrate and aspirin (10) Hyperlipidemia Current Visit: Yes Status: Chronic Qualifiers: Hyperlipidemia type: mixed hyperlipidemia Qualified Code(s): E78.2 - Mixed hyperlipidemia Plan to address problem: Hold statins (11) Transaminitis Current Visit: Yes Status: Acute Plan to address problem: Check hepatitis profile Possible fatty liver Possible gallstone induced Check right upper quadrant ultrasound for cholelithiasis (12) DVT prophylaxis Current Visit: Yes Status: Acute Plan to address problem: Lovenox 30 mg subcutaneous daily and GI prophylaxis
--- NOTE | 2019-02-18 18:33 | Cat Scan Report ---
CT ABDOMEN AND PELVIS WITH CONTRAST INDICATION: Left upper quadrant pain CONTRAST: Unspecified dosage Omnipaque 300 IV COMPARISON: None available. All CT scans at this location are performed using CT dose reduction for ALARA by means of automated e xposure control. NOTE: Resolution is decreased and artifact is introduced by the patient's size. FINDINGS: Mild bibasilar atelectatic changes are seen. Prominent coronary artery calcifications are n oted. Heart is mildly enlarged. The esophagus is patulous though does not show obvious fluid. No defi nite wall thickening is seen in the visualized portions. No pneumoperitoneum is seen. Fatty infiltration of the liver is seen without definite focal lesion. L iver is at the upper end of the normal range in size and has a length of 17.5 cm. Spleen is not signi ficantly enlarged. Multiple gallstones are seen in a distended gallbladder no wall thickening is noted. There also appea rs to be some calcification independently and a focal area along the anterior wall of the gallbladder . I do not see soft tissue thickening in this area this appeared to represent early porcelain gallbla dder. No biliary dilatation is seen. No ductal calculi are obvious. The pancreas shows diffuse edema and inflammation consistent with acute pancreatitis. I do not see ev idence of hemorrhage or necrosis. No pseudocyst formation is seen. Mild stranding of fluid is seen th rough the retroperitoneum, mostly to the left. A 5 mm calculus is seen in the lower pole the left kidney without obstructive change. Small probable cyst is seen in the right kidney and a tiny calculus is seen in the lower pole the right kidney. No u reteral calculi or dilatation are seen. Prostate is not significantly enlarged. No free fluid is noted. No lymphadenopathy is seen. Appendix appears within normal limits. Distention of small bowel loops is seen with scattered air-fluid levels but no dilatation is noted. No signific ant abdominal wall hernia is seen. Stomach is mildly distended with fluid. IMPRESSION: 1. Evidence of moderate acute pancreatitis without obvious complication 2. Cholelithiasis without acute change seen 3. Calcification focally of the wall the gallbladder. Though I do not see a soft tissue mass, this wo uld fall into the spectrum of porcelain gallbladder and may increase the chance for gallbladder carci noma. Follow-up evaluation is recommended. 4. Fatty infiltration of the liver 5. Patulous esophagus may suggest gastroesophageal reflux 6. Prominent coronary artery calcifications 7. Mild bilateral nephrolithiasis without acute change seen 8. Distention of small bowel probably relates to an adynamic ileus and the acute pancreatitis. I do n ot believe this is an obstructive pattern. Signer Name: Dallin Roberts MD Signed: 02/18/2019 6:29 PM Workstation Name: [id number]
[2019-02-18] MEDS ORDERED: ACETAMINOPHEN 325 MG TAB PO PRN (19:15)
[2019-02-18 19:34] LABS: Chol/HDL Ratio 3.28 %
[2019-02-18] MEDS: SODIUM CHLORIDE 0.9% 1000 ML 1,000 ML IV SCH ×2 (19:35→21:47)
[2019-02-18] MEDS ORDERED: SODIUM CHLORIDE 0.9% 1000 ML 2,000 ML ONE (19:42)
[2019-02-18] MEDS ORDERED: cloNIDine TTS 0.1 MG/24 HR PATCH TD SCH (20:00)
[2019-02-18] MEDS ORDERED: HYDROmorphone 1 MG/1 ML INJ ONE (20:22)
[2019-02-18 21:15] LABS: Hepatitis B Surface Antigen Non-Reactive (Negative); Hepatitis C Virus Antibody Reactive (NonReactive)
[2019-02-18] MEDS ORDERED: SODIUM CHLORIDE 0.9% 500 ML 500 ML IV ONE (21:31)
[2019-02-18] MEDS ORDERED: POTASSIUM CHLORIDE 10 MEQ 10 MEQ/100 ML BAG IV ONE ×2 (21:43→22:55)
[2019-02-18] MEDS: POTASSIUM CHLORIDE 10 MEQ 10 MEQ/100 ML BAG IV SCH ×2 (21:50→23:06)
[2019-02-18] MEDS ORDERED: ENOXAPARIN 40 MG/0.4 ML INJ SUB-Q SCH (22:00)
--- NOTE | 2019-02-18 22:26 | Ultrasound Report ---
ULTRASOUND ABDOMEN, LIMITED (RIGHT UPPER QUADRANT) INDICATION / CLINICAL INFORMATION: cholelithiasis. COMPARISON: CT dated 02/18/19 FINDINGS: PANCREAS: Obscured by bowel gas. LIVER: Liver is slightly echogenic suggesting fatty infiltration. GALLBLADDER: Several echogenic gallstones. No gallbladder wall thickening or edema. BILE DUCTS: No significant abnormality. Common bile duct measures 6.7 mm. FREE FLUID: None. ADDITIONAL FINDINGS: None. IMPRESSION: 1. Cholelithiasis without definite sonographic evidence for acute cholecystitis. 2. Mild hepatic steatosis. Signer Name: Rigoberto Avendano MD Signed: 02/18/2019 10:22 PM Workstation Name: [id number]
[2019-02-18] MEDS ORDERED: ENOXAPARIN 40 MG/0.4 ML INJ SUB-Q ONE (22:55)
[2019-02-18] MEDS ORDERED: SODIUM CHLORIDE 0.9% 500 ML 500 ML ONE (22:58)
[2019-02-18] MEDS: ENOXAPARIN 40 MG/0.4 ML INJ SUB-Q SCH (23:06)
[2019-02-19] MEDS: D5W/0.45% NACL 1,000 ML IV SCH ×2 (01:37→12:28)
[2019-02-19] MEDS: HYDROmorphone 1 MG/1 ML INJ IV PRN ×2 (01:39→06:23)
[2019-02-19 05:23] LABS: Basophils % (Auto) 0.1 % (0.0-1.8); Hematocrit 46.3 % (35.5-45.6); Hemoglobin 15.7 gm/dl (11.8-15.2); Lymphocytes % (Auto) 5.6 % (13.4-35.0); Mean Corpuscular HGB Conc 34 % (32-34); Mean Corpuscular Volume 100 fl (84-94); Monocytes % (Auto) 5.7 % (0.0-7.3); Platelet Count 104 K/mm3 (140-440); Red Blood Count 4.65 M/mm3 (3.65-5.03); Red Cell Distribution Width 14.7 % (13.2-15.2)
[2019-02-19 05:48] LABS: Albumin 2.5 g/dL (3.9-5); Calcium 7.1 mg/dL (8.4-10.2)
--- NOTE | 2019-02-19 09:07 | Progress Note ---
Assessment and Plan Assessment and plan: Acute pancreatitis Lipase is around 1104 Keep NPO Increase Dilaudid to 2mg iv Q 4hrs IV fluids for now GI consulted surg consulted Cholelithiasios surg consulted SIRS (systemic inflammatory response syndrome) IV Abx Elevated troponin Cardiolgy consulted, evaluated Polycythemia due to fall in plasma volume Hemoconcentration Secondary to volume depletion Hypokalemia Supplemented Chest pain Secondary to reflux and pancreatitis Serial troponins Pain control Reflux esophagitis IV Protonix for now Hypertension Catapres patch TTS 1 every weekly Coronary artery disease Hold isosorbide mononitrate and aspirin Hyperlipidemia Hold statins Transaminitis has hep C Hepatitis C infectio DVT prophylaxis Lovenox 30 mg subcutaneous daily and GI prophylaxis full code status History Interval history: Abdominal pain Hospitalist Physical - Physical exam Narrative exam: Gen: Not in acute distress, lying in bed, morbidly obese HEENT: Normocephalic, atraumatic Neck: supple, no JVD Heart: S1 and S2 reg, no murmurs, rubs or gallop Lungs: Clear to auscultation, no rhonchi, no wheeze Abd: soft, tender, no rebound tenderness, obese, normal BS, Ext: No edema, no clubbing, no cyanosis Neuro: Awake, alert, oriented X 3, no focal neurological signs - Constitutional Vitals: Temp Pulse Resp BP Pulse Ox 97.7 F 66 14 88/41 90 02/19/19 05:28 02/19/19 05:28 02/19/19 06:23 02/19/19 05:28 02/19/19 05:28 General appearance: Present: mild distress, well-nourished Results - Labs CBC & Chem 7: 02/19/19 05:00 02/19/19 Unknown Labs: Laboratory Last Values WBC 17.4 K/mm3 (4.5-11.0) H 02/19/19 05:00 RBC 4.65 M/mm3 (3.65-5.03) 02/19/19 05:00 Hgb 15.7 gm/dl (11.8-15.2) H D 02/19/19 05:00 Hct 46.3 % (35.5-45.6) H D 02/19/19 05:00 MCV 100 fl (84-94) H 02/19/19 05:00 MCH 34 pg (28-32) H 02/19/19 05:00 MCHC 34 % (32-34) 02/19/19 05:00 RDW 14.7 % (13.2-15.2) 02/19/19 05:00 Plt Count 104 K/mm3 (140-440) L 02/19/19 05:00 Lymph % (Auto) 5.6 % (13.4-35.0) L 02/19/19 05:00 [place] % (Auto) 5.7 % (0.0-7.3) 02/19/19 05:00 Eos % (Auto) 0.0 % (0.0-4.3) 02/19/19 05:00 Baso % (Auto) 0.1 % (0.0-1.8) 02/19/19 05:00 Lymph # 1.0 K/mm3 (1.2-5.4) L 02/19/19 05:00 [place] # 1.0 K/mm3 (0.0-0.8) H 02/19/19 05:00 Eos # 0.0 K/mm3 (0.0-0.4) 02/19/19 05:00 Baso # 0.0 K/mm3 (0.0-0.1) 02/19/19 05:00 Seg Neutrophils % 88.6 % (40.0-70.0) H 02/19/19 05:00 Seg Neutrophils # 15.4 K/mm3 (1.8-7.7) H 02/19/19 05:00 PT 13.7 Sec. (12.2-14.9) 02/18/19 15:08 INR 1.06 (0.87-1.13) 02/18/19 15:08 APTT 32.1 Sec. (24.2-36.6) 02/18/19 15:08 Sodium 140 mmol/L (137-145) 02/19/19 Unknown Potassium 5.2 mmol/L (3.6-5.0) H D 02/19/19 Unknown Chloride 108.8 mmol/L (98-107) H 02/19/19 Unknown Carbon Dioxide 21 mmol/L (22-30) L 02/19/19 Unknown Anion Gap 15 mmol/L 02/19/19 Unknown BUN 27 mg/dL (9-20) H 02/19/19 Unknown Creatinine 1.7 mg/dL (0.8-1.5) H D 02/19/19 Unknown Estimated GFR 41 ml/min 02/19/19 Unknown BUN/Creatinine Ratio 16 % 02/19/19 Unknown Glucose 148 mg/dL (75-100) H 02/19/19 Unknown Hemoglobin A1c 5.3 % (4-6) 02/18/19 20:31 Calcium 7.1 mg/dL (8.4-10.2) L D 02/19/19 Unknown Total Bilirubin 2.50 mg/dL (0.1-1.2) H 02/19/19 Unknown AST 66 units/L (5-40) H 02/19/19 Unknown ALT 37 units/L (7-56) 02/19/19 Unknown Alkaline Phosphatase 72 units/L (35-129) 02/19/19 Unknown Troponin T 0.076 ng/mL (0.00-0.029) H D 02/18/19 20:33 Total Protein 6.0 g/dL (6.3-8.2) L 02/19/19 Unknown Albumin 2.5 g/dL (3.9-5) L 02/19/19 Unknown Albumin/Globulin Ratio 0.7 % 02/19/19 Unknown Triglycerides 92 mg/dL (2-149) 02/18/19 18:10 Cholesterol 82 mg/dL (50-199) 02/18/19 18:10 LDL Cholesterol Direct 54 mg/dL (50-130) 02/18/19 18:10 HDL Cholesterol 25 mg/dL (40-59) L 02/18/19 18:10 Cholesterol/HDL Ratio 3.28 % 02/18/19 18:10 Lipase 1104 units/L (13-60) H 02/18/19 15:08 Hepatitis A IgM Ab Non-reactive (NonReactive) 02/18/19 20:32 Hep Bs Antigen Non-reactive (Negative) 02/18/19 20:32 Hep B Core IgM Ab Non-reactive (NonReactive) 02/18/19 20:32 Hepatitis C Antibody Reactive (NonReactive) A 02/18/19 20:32 Active Medications - Current Medications Current Medications: Generic Name Dose Route Start Last Admin Trade Name Freq PRN Reason Stop Dose Admin Acetaminophen 650 mg 02/18/19 19:15 Tylenol PO Q4H PRN Pain MILD(1-3)/Fever >100.5/NORIEGA Enoxaparin Sodium 40 mg 02/18/19 22:00 02/18/19 23:06 Enoxaparin SUB-Q 40 mg QDAY@1000 JONATHAN Administration Hydromorphone HCl 2 mg 02/19/19 09:06 Dilaudid IV Q4H PRN Pain , Severe (7-10) Dextrose/Sodium Chloride 1,000 mls @ 100 mls/hr 02/18/19 20:00 02/19/19 01:37 D5/0.45ns IV 100 mls/hr DIRECT JONATHAN Administration Sodium Chloride 1,000 mls @ 0 mls/hr 02/18/19 19:35 02/18/19 21:47 Nacl 0.9% 1000 Ml IV 02/19/19 19:36 999 mls/hr ONCE JONATHAN Administration As Directed Ondansetron HCl 4 mg 02/18/19 19:15 Zofran IV Q3H PRN Nausea And Vomiting Sodium Chloride 10 ml 02/18/19 22:00 02/18/19 22:12 Sodium Chloride Flush Syringe 10 Ml IV 10 ml BID JONATHAN Administration Sodium Chloride 10 ml 02/18/19 19:15 Sodium Chloride Flush Syringe 10 Ml IV PRN PRN LINE FLUSH
[2019-02-19 09:35] LABS: Albumin 2.4 g/dL (3.9-5)
--- NOTE | 2019-02-19 09:35 | Gastroenterology Consultation ---
History of Present Illness - Reason for Consult Consult date: 02/19/19 Pancreatitis Requesting physician: ROSANNE VASQUEZ - History of Present Illness The patient is a 63 yo male admitted with bilateral UQ abdominal pain x 48 hours. He has not had pain like this before. It was associated with mild nausea, but he has had no emesis (and is tolerating PO water and ice chips now). He was noted in the ER to have pancreatitis by CT and lipase. He says the pain is better since IV fluids and pain meds given overnight. He was noted to have multiple gallstones on CT scan, but US showed CBD of only 7; no CBD stone was seen. He has a mildly elevated bili and AST, but has a hx of liver disease (EtOH, none x 3 years per his report; fatty liver on imaging). He has had no prior abdominal surgery, and there was no recent trauma or new medications started. He has no family hx of pancreatitis or pancreas cancer. He does have an elevated troponin, but no acute CP or SOB, and EKG normal in ER by report; he has a hx of CAD with stents. Past History Past Medical History: CAD (Hx of stent x 1), hepatitis (Hepatitis C; failed prio r treament with Interferon), hypertension, hyperlipidemia, liver disease ((CRUZ, Hx of EtOH)), other (Morbid Obesity) Past Surgical History: Other (Leg Fracture) Social history: alcohol abuse ((Hx of; no EtOH x 3 years per patient)). denies: smoking Family history: no significant family history Medications and Allergies Allergies Allergy/AdvReac Type Severity Reaction Status Date / Time No Known Allergies Allergy Verified 07/24/14 10:24 Home Medications Medication Instructions Recorded Confirmed Last Taken Type Atorvastatin [Lipitor Tab] 80 mg PO QHS 02/18/19 02/18/19 02/17/19 History Carvedilol [Coreg] 12.5 mg PO BID 02/18/19 02/18/19 02/17/19 History Lisinopril [Zestril] 20 mg PO QDAY 02/18/19 02/18/19 02/17/19 History Active Meds: Active Medications Acetaminophen (Tylenol) 650 mg PO Q4H PRN PRN Reason: Pain MILD(1-3)/Fever >100.5/NORIEGA Enoxaparin Sodium (Enoxaparin) 40 mg SUB-Q QDAY@1000 JONATHAN Last Admin: 02/18/19 23:06 Dose: 40 mg Documented by: Hydromorphone HCl (Dilaudid) 2 mg IV Q4H PRN PRN Reason: Pain , Severe (7-10) Dextrose/Sodium Chloride (D5/0.45ns) 1,000 mls @ 100 mls/hr IV DIRECT JONATHAN Last Admin: 02/19/19 01:37 Dose: 100 mls/hr Documented by: Sodium Chloride (Nacl 0.9% 1000 Ml) 1,000 mls @ 0 mls/hr IV ONCE JONATHAN Stop: 02/19/19 19:36 Last Admin: 02/18/19 21:47 Dose: 999 mls/hr Documented by: Ondansetron HCl (Zofran) 4 mg IV Q3H PRN PRN Reason: Nausea And Vomiting Pantoprazole Sodium (Protonix) 40 mg PO QDAY [facility] Sodium Chloride (Sodium Chloride Flush Syringe 10 Ml) 10 ml IV BID [facility] Last Admin: 02/18/19 22:12 Dose: 10 ml Documented by: Sodium Chloride (Sodium Chloride Flush Syringe 10 Ml) 10 ml IV PRN PRN PRN Reason: LINE FLUSH I HAVE REVIEWED AND RECONCILED MEDICATIONS Review of Systems - Review of Systems All systems: negative (as noted in the HPI) Exam - Constitutional Vital Signs: Temp Pulse Resp BP Pulse Ox 97.7 F 68 14 118/60 90 02/19/19 05:28 02/19/19 09:14 02/19/19 06:23 02/19/19 09:14 02/19/19 05:28 General appearance: no acute distress, obese - EENT Eyes: PERRL, EOM intact ENT: hearing intact, clear oral mucosa, dentition normal - Neck Neck: supple, normal ROM - Respiratory Respiratory effort: normal Respiratory: bilateral: CTA - Cardiovascular Rhythm: regular Heart Sounds: Present: S1 & S2 Extremities: no ischemia, No edema - Gastrointestinal General gastrointestinal: Present: soft, non-tender, non-distended - Integumentary Integumentary: Present: clear, warm, dry - Neurologic Neurological: alert and oriented x3 - Labs CBC & Chem 7: 02/19/19 05:00 02/19/19 Unknown Lab Results: Laboratory Results - last 24 hr 02/18/19 02/18/1902/18/19 15:08 15:08 15:08 WBC 9.0 RBC 5.59 H Hgb 18.8 H Hct 54.2 H MCV 97 H MCH 34 H MCHC 35 H RDW 14.3 Plt Count 115 L Lymph % (Auto) 9.6 L [place] % (Auto) 4.7 Eos % (Auto) 2.2 Baso % (Auto) 0.6 Lymph # 0.9 L [place] # 0.4 Eos # 0.2 Baso # 0.1 Seg Neutrophils % 82.9 H Seg Neutrophils # 7.5 PT 13.7 INR 1.06 APTT 32.1 Sodium 138 Potassium 3.5 L Chloride 103.9 Carbon Dioxide 20 L Anion Gap 18 BUN 21 H Creatinine 0.9 Estimated GFR > 60 BUN/Creatinine Ratio 23 Glucose 164 H Hemoglobin A1c Calcium 8.9 Total Bilirubin 3.80 H AST 71 H ALT 47 Alkaline Phosphatase 117 Troponin T < 0.010 Total Protein 7.4 Albumin 3.1 L Albumin/Globulin Ratio 0.7 Triglycerides Cholesterol LDL Cholesterol Direct HDL Cholesterol Cholesterol/HDL Ratio Lipase 1104 H Hepatitis A IgM Ab Hep Bs Antigen Hep B Core IgM Ab Hepatitis C Antibody 02/18/19 02/18/19 02/18/19 18:10 20:31 20:32 WBC RBC Hgb Hct MCV MCH MCHC RDW Plt Count Lymph % (Auto) [place] % (Auto) Eos % (Auto) Baso % (Auto) Lymph # [place] # Eos # Baso # Seg Neutrophils % Seg Neutrophils # PT INR APTT Sodium Potassium Chloride Carbon Dioxide Anion Gap BUN Creatinine Estimated GFR BUN/Creatinine Ratio Glucose Hemoglobin A1c 5.3 Calcium Total Bilirubin AST ALT Alkaline Phosphatase Troponin T 0.034 H D Total Protein Albumin Albumin/Globulin Ratio Triglycerides 92 Cholesterol 82 LDL Cholesterol Direct 54 HDL Cholesterol 25 L Cholesterol/HDL Ratio 3.28 Lipase Hepatitis A IgM Ab Non-reactive Hep Bs Antigen Non-reactive Hep B Core IgM Ab Non-reactive Hepatitis C Antibody Reactive A 02/18/19 02/19/19 02/19/19 20:33 05:00 Unknown WBC 17.4 H RBC 4.65 Hgb 15.7 H D Hct 46.3 H D MCV 100 H MCH 34 H MCHC 34 RDW 14.7 Plt Count 104 L Lymph % (Auto) 5.6 L [place] % (Auto) 5.7 Eos % (Auto) 0.0 Baso % (Auto) 0.1 Lymph # 1.0 L [place] # 1.0 H Eos # 0.0 Baso # 0.0 Seg Neutrophils % 88.6 H Seg Neutrophils # 15.4 H PT INR APTT Sodium 140 Potassium 5.2 H D Chloride 108.8 H Carbon Dioxide 21 L Anion Gap 15 BUN 27 H Creatinine 1.7 H D Estimated GFR 41 BUN/Creatinine Ratio 16 Glucose 148 H Hemoglobin A1c Calcium 7.1 L D Total Bilirubin 2.50 H AST 66 H ALT 37 Alkaline Phosphatase 72 Troponin T 0.076 H D Total Protein 6.0 L Albumin 2.5 L Albumin/Globulin Ratio 0.7 Triglycerides Cholesterol LDL Cholesterol Direct HDL Cholesterol Cholesterol/HDL Ratio Lipase Hepatitis A IgM Ab Hep Bs Antigen Hep B Core IgM Ab Hepatitis C Antibody Assessment and Plan - Patient Problems (1) Acute pancreatitis Current Visit: Yes Status: Acute Plan to address problem: - Per patient, no EtOH x 3 years, and no signs of chronic pancreatitis on CT. - Does have numerous gallstones; unclear if elevated LFTs due to CBD stone or chronic liver disease (HCV, hx of EtOH, fatty liver). - Pain/nausea better in last 12 hours, and no signs of acute worsening. Will get MRCP to delineate the CBD; if negative, and LFTs remain stable, we will likely recommend CCY with IOC. If positive, will get ERCP. - Will also ask Cards to see patient given elevated troponin and hx of CAD, for risk stratification. (2) Gallstones Current Visit: Yes Status: Acute (3) Morbid obesity Current Visit: Yes Status: Acute (4) Hepatitis C Current Visit: Yes Status: Acute Plan to address problem: - Hx of prior treatment failure with IFN; no further treatment. (5) Liver disease Current Visit: Yes Status: Acute Plan to address problem: - CT with fatty liver but no varices or ascites; platelents low, and chronic elevated LFTs. Would be considered Uriah A (at worst) - mild risk of invasive abdominal procedures. (6) Elevated troponin Current Visit: Yes Status: Acute (7) Alcohol abuse Current Visit: Yes Status: Acute Plan to address problem: - Sober x 3 years per patient; no signs of DTs. I feel no need for CIWA at present.
[2019-02-19] MEDS: ENOXAPARIN 40 MG/0.4 ML INJ SUB-Q SCH (10:24)
[2019-02-19] MEDS: HYDROmorphone 2 MG/1 ML INJ IV PRN ×3 (10:25→22:48)
[2019-02-19] MEDS: PANTOPRAZOLE 40 MG TAB PO SCH (10:25)
[2019-02-19] MEDS ORDERED: FLU VACC QUAD 2019-20 (3 YR UP)/PF 60 MCG/0.5 ML SYRINGE IM ONE (12:00)
[2019-02-19] MEDS: ONDANSETRON 4 MG/2 ML INJ IV PRN (12:27)
[2019-02-19] MEDS: diphenhydrAMINE 50 MG/ML VIAL IV PRN ×2 (12:45→18:17)
--- NOTE | 2019-02-19 13:20 | Consultation ---
History of Present Illness Consult date: 02/19/19 Requesting physician: GILMER MAGANA Consult reason: elevated troponin, known to you, pre op evaluation History of present illness: The pt is a 63 YO male with a past medical history of CAD s/p PCI of MOM in 08/2014, HTN, HLP, pancreatitis, former ETOH abuse (quit drinking 3+ years ago), hepatitis C, obesity. He is followed in our office by Dr. Baeza. He presented with c/o bilateral UQ abdominal pain x 48 hours. It was associated with mild nausea, but no vomiting. Since admission, he has been diagnosed with pancreatit is and multiple gallstones. He is pending MRCP and possible ERCP per GI team and general surgery has also been consulted. He was noted to have minimally elevated troponins and thus cardiology has been consulted. Pt denies any cardiac complaints. OP LHC done at [facility] on 01/28/2019 (indicated due to abnormal stress test) showed nonobstructive CAD (left main, LAD and circ <10% luminal irregularities, mid RCA 60% stenosis, distal RCA 80% stenosis. This LHC was performed at [facility] rather than a local hospital due to insurance coverage. Echo done 08/2014 showed EF 50-55%, LA mildly dilated, mild with mean gradient 13mmHg. Past History Past Medical History: CAD (Hx of stent x 1), hepatitis (Hepatitis C; failed prior treament with Interferon), hypertension, hyperlipidemia, liver disease ((CRUZ, Hx of EtOH)), other (Morbid Obesity) Past Surgical History: Other (Leg Fracture) Social history: alcohol abuse ((Hx of; no EtOH x 3 years per patient)). denies: smoking Family history: no significant family history Medications and Allergies Allergies Allergy/AdvReac Type Severity Reaction Status Date / Time No Known Allergies Allergy Verified 07/24/14 10:24 Home Medications Medication Instructions Recorded Confirmed Last Taken Type Atorvastatin [Lipitor Tab] 80 mg PO QHS 02/18/19 02/18/19 02/17/19 History Carvedilol [Coreg] 12.5 mg PO BID 02/18/19 02/18/19 02/17/19 History Lisinopril [Zestril] 20 mg PO QDAY 02/18/19 02/18/19 02/17/19 History Active Meds: Active Medications Acetaminophen (Tylenol) 650 mg PO Q4H PRN PRN Reason: Pain MILD(1-3)/Fever >100.5/NORIEGA Diphenhydramine HCl (Benadryl) 25 mg IV Q6H PRN PRN Reason: Itching Last Admin: 02/19/19 12:45 Dose: 25 mg Documented by: Enoxaparin Sodium (Enoxaparin) 40 mg SUB-Q QDAY@1000 JONATHAN Last Admin: 02/19/19 10:24 Dose: 40 mg Documented by: Hydromorphone HCl (Dilaudid) 2 mg IV Q4H PRN PRN Reason: Pain , Severe (7-10) Last Admin: 02/19/19 10:25 Dose: 2 mg Documented by: Dextrose/Sodium Chloride (D5/0.45ns) 1,000 mls @ 100 mls/hr IV DIRECT JONATHAN Last Admin: 02/19/19 12:28 Dose: 100 mls/hr Documented by: Sodium Chloride (Nacl 0.9% 1000 Ml) 1,000 mls @ 0 mls/hr IV ONCE JONATHAN Stop: 02/19/19 19:36 Last Admin: 02/18/19 21:47 Dose: 999 mls/hr Documented by: Ondansetron HCl (Zofran) 4 mg IV Q3H PRN PRN Reason: Nausea And Vomiting Last Admin: 02/19/19 12:27 Dose: 4 mg Documented by: Pantoprazole Sodium (Protonix) 40 mg PO QDAY [facility] Last Admin: 02/19/19 10:25 Dose: 40 mg Documented by: Sodium Chloride (Sodium Chloride Flush Syringe 10 Ml) 10 ml IV BID [facility] Last Admin: 02/19/19 10:26 Dose: 10 ml Documented by: Sodium Chloride (Sodium Chloride Flush Syringe 10 Ml) 10 ml IV PRN PRN PRN Reason: LINE FLUSH Review of Systems Constitutional: no weight loss, no weight gain, no fever, no chills, no sweats Ears, nose, mouth and throat: no ear pain, no nose pain, no sinus pressure, no sinus pain Cardiovascular: no chest pain, no orthopnea, no palpitations, no rapid/irregular heart beat, no edema, no syncope, no lightheadedness, no shortness of breath, no dyspnea on exertion, no leg edema Respiratory: no cough, no shortness of breath, no dyspnea on exertion, no congestion, no wheezing, no pain on inspiration Gastrointestinal: abdominal pain, nausea, no vomiting, no diarrhea, no constipation, no change in bowel habits Genitourinary Male: no dysuria, no hematuria, no flank pain, no discharge, no urinary frequency, no urinary hesitancy Musculoskeletal: no neck stiffness, no neck pain Integumentary: no rash, no pruritis, no redness, no sores, no wounds Neurological: no head injury, no paralysis, no weakness, no parathesias, no numbness, no tingling, no seizures, no syncope Psychiatric: no anxiety Endocrine: no cold intolerance, no heat intolerance Hematologic/Lymphatic: no easy bruising, no easy bleeding Allergic/Immunologic: no urticaria, no wheezing Physical Examination Vital Signs Temp Pulse Resp BP Pulse Ox 98.5 F 71 16 121/47 95 02/18/19 14:31 02/18/19 14:31 02/18/19 14:31 02/18/19 14:31 02/18/19 14:31 General appearance: no acute distress HEENT: Positive: PERRL, Normocephaly, Mucus Membranes Moist Neck: Positive: neck supple, trachea midline Cardiac: Positive: Reg Rate and Rhythm, S1/S2 Lungs: Positive: Decreased Breath Sounds Neuro: Positive: Grossly Intact Abdomen: Positive: Tender Skin: Negative: Rash Musculoskeletal: No Pain Extremities: Absent: edema Results 02/19/19 05:00 02/19/19 Unknown Cardiac Enzymes 02/18/19 02/19/19 02/19/19 Range/Units 15:08 08:53 Unknown AST 71 H 56 H 66 H (5-40) units/L Coagulation 02/18/19 Range/Units 15:08 PT 13.7 (12.2-14.9) Sec. INR 1.06 (0.87-1.13) APTT 32.1 (24.2-36.6) Sec. Lipids 02/18/19 Range/Units 18:10 Triglycerides 92 (2-149) mg/dL Cholesterol 82 (50-199) mg/dL HDL Cholesterol 25 L (40-59) mg/dL Cholesterol/HDL Ratio 3.28 % CBC 02/18/19 02/19/19 Range/Units 15:08 05:00 WBC 9.0 17.4 H (4.5-11.0) K/mm3 RBC 5.59 H 4.65 (3.65-5.03) M/mm3 Hgb 18.8 H 15.7 H D (11.8-15.2) gm/dl Hct 54.2 H 46.3 H D (35.5-45.6) % Plt Count 115 L 104 L (140-440) K/mm3 Lymph # 0.9 L 1.0 L (1.2-5.4) K/mm3 [place] # 0.4 1.0 H (0.0-0.8) K/mm3 Eos # 0.2 0.0 (0.0-0.4) K/mm3 Baso # 0.1 0.0 (0.0-0.1) K/mm3 Comprehensive Metabolic Panel 02/18/19 02/19/19 02/19/19 Range/Units 15:08 08:53 Unknown Sodium 138 140 140 (137-145) mmol/L Potassium 3.5 L 4.9 5.2 H D (3.6-5.0) mmol/L Chloride 103.9 109.9 H 108.8 H (98-107) mmol/L Carbon Dioxide 20 L 20 L 21 L (22-30) mmol/L BUN 21 H 30 H 27 H (9-20) mg/dL Creatinine 0.9 2.2 H 1.7 H D (0.8-1.5) mg/dL Glucose 164 H 117 H 148 H (75-100) mg/dL Calcium 8.9 7.0 L 7.1 L D (8.4-10.2) mg/dL AST 71 H 56 H 66 H (5-40) units/L ALT 47 35 37 (7-56) units/L Alkaline Phosphatase 117 76 72 (35-129) units/L Total Protein 7.4 5.7 L 6.0 L (6.3-8.2) g/dL Albumin 3.1 L 2.4 L 2.5 L (3.9-5) g/dL - Imaging and Cardiology Echo: report reviewed (08/2014 showed EF 50-55%, LA mildly dilated, mild with mean gradient 13mmHg. ) Cardiac cath: report reviewed (OP LHC done at [facility] on 01/28/2019 (indicated due to abnormal stress test) showed nonobstructive CAD (left main, LAD and circ <10% luminal irregularities, mid RCA 60% stenosis, distal RCA 80% stenosis. ) EKG: report reviewed, image reviewed EKG interpretations - Telemetry EKG Rhythm: Sinus Rhythm - EKG Sinus rhythms and dysrhythmias: sinus rhythm Assessment and Plan Currently stable cardiac status. Pt denies any cardiac complaints. AMI ruled o ut. Minimal troponin elevation currently nonspecific. F/u ECG in AM. Obtain echo. Resume home ASA 81, coreg, lisinopril with hold parameters (bout of hypotension noted overnight). Will hold home lipitor in setting of liver disease and transaminitis. Follow GI and general surgery recs. The patient has been seen in conjunction with Dr. Mica White who agrees with the assessment and plan of care. - Patient Problems (1) Acute pancreatitis Current Visit: Yes Status: Acute (2) Cholelithiasis Current Visit: Yes Status: Acute (3) CAD (coronary artery disease) Current Visit: Yes Status: Chronic Qualifiers: Coronary Disease-Associated Artery/Lesion type: [place] artery [place] vs. transplanted heart: [place] heart Associated angina: with other forms of angina Qualified Code(s): I25.118 - Atherosclerotic heart disease of [place] coronary artery with other forms of angina pectoris (4) Stented coronary artery Current Visit: Yes Status: Chronic (5) Elevated troponin Current Visit: Yes Status: Acute (6) Hypertension Current Visit: Yes Status: Chronic Qualifiers: Hypertension type: essential hypertension Qualified Code(s): I10 - Essential (primary) hypertension (7) H/O ETOH abuse Current Visit: Yes Status: Chronic (8) Hepatitis C Current Visit: Yes Status: Chronic (9) VAHE (acute kidney injury) Current Visit: Yes Status: Acute (10) Liver disease Current Visit: Yes Status: Chronic (11) Thrombocytopenia Current Visit: Yes Status: Acute (12) Obesity Current Visit: Yes Status: Chronic
[2019-02-19] MEDS ORDERED: LISINOPRIL 20 MG TAB PO SCH (14:00)
--- NOTE | 2019-02-19 15:48 | Consultation ---
History of Present Illness Consult date: 02/19/19 Reason for consult: abdominal pain Chief complaint: abdominal pain - History of present illness History of present illness: 63 yo M with hx of CAD s/p stent, morbid obesity presents to hospital with sever al days of epigastric abdominal pain radiating to the entire upper abdomen. He has never had pain like this in the past. He states he had nausea and retching but no vomiting. No f/c. He denies etoh use. W/u has revealed gallstones, pancreatitis, elevated bilirubin. Surgery consulted for pancreatitis. The patient is currently on clear liquid diet which he is tolerating. Past History Past Medical History: CAD (Hx of stent x 1), hepatitis (Hepatitis C; failed prior treament with Interferon), hypertension, hyperlipidemia, liver disease ((CRUZ, Hx of EtOH)), other (Morbid Obesity) Past Surgical History: Other (Leg Fracture, cardiac stent) Social history: alcohol abuse ((Hx of; no EtOH x 3 years per patient)). denies: smoking Family history: no significant family history Medications and Allergies Allergies Allergy/AdvReac Type Severity Reaction Status Date / Time No Known Allergies Allergy Verified 07/24/14 10:24 Home Medications Medication Instructions Recorded Confirmed Last Taken Type Atorvastatin [Lipitor Tab] 80 mg PO QHS 02/18/19 02/18/19 02/17/19 History Carvedilol [Coreg] 12.5 mg PO BID 02/18/19 02/18/19 02/17/19 History Lisinopril [Zestril] 20 mg PO QDAY 02/18/19 02/18/19 02/17/19 History Active Meds: Active Medications Acetaminophen (Tylenol) 650 mg PO Q4H PRN PRN Reason: Pain MILD(1-3)/Fever >100.5/NORIEGA Aspirin (Baby Aspirin) 81 mg PO QDAY JONATHAN Carvedilol (Coreg) 6.25 mg PO BID [facility] Diphenhydramine HCl (Benadryl) 25 mg IV Q6H PRN PRN Reason: Itching Last Admin: 02/19/19 12:45 Dose: 25 mg Documented by: Enoxaparin Sodium (Enoxaparin) 40 mg SUB-Q QDAY@1000 JONATHAN Last Admin: 02/19/19 10:24 Dose: 40 mg Documented by: Hydromorphone HCl (Dilaudid) 2 mg IV Q4H PRN PRN Reason: Pain , Severe (7-10) Last Admin: 02/19/19 10:25 Dose: 2 mg Documented by: Dextrose/Sodium Chloride (D5/0.45ns) 1,000 mls @ 100 mls/hr IV DIRECT JONATHAN Last Admin: 02/19/19 12:28 Dose: 100 mls/hr Documented by: Sodium Chloride (Nacl 0.9% 1000 Ml) 1,000 mls @ 0 mls/hr IV ONCE JONATHAN Stop: 02/19/19 19:36 Last Admin: 02/18/19 21:47 Dose: 999 mls/hr Documented by: Lisinopril (Zestril) 20 mg PO QDAY [facility] Ondansetron HCl (Zofran) 4 mg IV Q3H PRN PRN Reason: Nausea And Vomiting Last Admin: 02/19/19 12:27 Dose: 4 mg Documented by: Pantoprazole Sodium (Protonix) 40 mg PO QDAY [facility] Last Admin: 02/19/19 10:25 Dose: 40 mg Documented by: Sodium Chloride (Sodium Chloride Flush Syringe 10 Ml) 10 ml IV BID [facility] Last Admin: 02/19/19 10:26 Dose: 10 ml Documented by: Sodium Chloride (Sodium Chloride Flush Syringe 10 Ml) 10 ml IV PRN PRN PRN Reason: LINE FLUSH Review of Systems All systems: negative (10 pt ROS performed and negative except for that listed in HPI) Exam Vital Signs Temp Pulse Resp BP Pulse Ox 98.5 F 71 16 121/47 95 02/18/19 14:31 02/18/19 14:31 02/18/19 14:31 02/18/19 14:31 02/18/19 14:31 Narrative exam: Gen: AAOx3. NAD ENT: no scleral icterus or conjunctival pallor CV: S1, S2+ Resp: even and unlabored Abd: soft, ND, mild epigastric TTP. no r/r/g. Morbid obesity Ext: no c/c/e Results - Labs 02/19/19 05:00 02/19/19 Unknown Abnormal lab results 02/18/19 02/18/19 02/18/19 Range/Units 15:08 18:10 20:32 WBC (4.5-11.0) K/mm3 Hgb (11.8-15.2) gm/dl Hct (35.5-45.6) % MCV (84-94) fl MCH (28-32) pg Plt Count (140-440) K/mm3 Lymph % (Auto) (13.4-35.0) % Lymph # (1.2-5.4) K/mm3 [place] # (0.0-0.8) K/mm3 Seg Neutrophils % (40.0-70.0) % Seg Neutrophils # (1.8-7.7) K/mm3 Potassium 3.5 L (3.6-5.0) mmol/L Chloride (98-107) mmol/L Carbon Dioxide 20 L (22-30) mmol/L BUN 21 H (9-20) mg/dL Creatinine (0.8-1.5) mg/dL Glucose 164 H (75-100) mg/dL Calcium (8.4-10.2) mg/dL Total Bilirubin 3.80 H (0.1-1.2) mg/dL AST 71 H (5-40) units/L Troponin T 0.034 H D (0.00-0.029) ng/mL Total Protein (6.3-8.2) g/dL Albumin 3.1 L (3.9-5) g/dL HDL Cholesterol 25 L (40-59) mg/dL Lipase 1104 H (13-60) units/L Hepatitis C Antibody Reactive A (NonReactive) 02/18/19 02/19/19 02/19/19 Range/Units 20:33 05:00 08:53 WBC 17.4 H (4.5-11.0) K/mm3 Hgb 15.7 H D (11.8-15.2) gm/dl Hct 46.3 H D (35.5-45.6) % MCV 100 H (84-94) fl MCH 34 H (28-32) pg Plt Count 104 L (140-440) K/mm3 Lymph % (Auto) 5.6 L (13.4-35.0) % Lymph # 1.0 L (1.2-5.4) K/mm3 [place] # 1.0 H (0.0-0.8) K/mm3 Seg Neutrophils % 88.6 H (40.0-70.0) % Seg Neutrophils # 15.4 H (1.8-7.7) K/mm3 Potassium (3.6-5.0) mmol/L Chloride 109.9 H (98-107) mmol/L Carbon Dioxide 20 L (22-30) mmol/L BUN 30 H (9-20) mg/dL Creatinine 2.2 H (0.8-1.5) mg/dL Glucose 117 H (75-100) mg/dL Calcium 7.0 L (8.4-10.2) mg/dL Total Bilirubin 1.80 H (0.1-1.2) mg/dL AST 56 H (5-40) units/L Troponin T 0.076 H D (0.00-0.029) ng/mL Total Protein 5.7 L (6.3-8.2) g/dL Albumin 2.4 L (3.9-5) g/dL HDL Cholesterol (40-59) mg/dL Lipase (13-60) units/L Hepatitis C Antibody (NonReactive) 02/19/19 Range/Units Unknown WBC (4.5-11.0) K/mm3 Hgb (11.8-15.2) gm/dl Hct (35.5-45.6) % MCV (84-94) fl MCH (28-32) pg Plt Count (140-440) K/mm3 Lymph % (Auto) (13.4-35.0) % Lymph # (1.2-5.4) K/mm3 [place] # (0.0-0.8) K/mm3 Seg Neutrophils % (40.0-70.0) % Seg Neutrophils # (1.8-7.7) K/mm3 Potassium 5.2 H D (3.6-5.0) mmol/L Chloride 108.8 H (98-107) mmol/L Carbon Dioxide 21 L (22-30) mmol/L BUN 27 H (9-20) mg/dL Creatinine 1.7 H D (0.8-1.5) mg/dL Glucose 148 H (75-100) mg/dL Calcium 7.1 L D (8.4-10.2) mg/dL Total Bilirubin 2.50 H (0.1-1.2) mg/dL AST 66 H (5-40) units/L Troponin T (0.00-0.029) ng/mL Total Protein 6.0 L (6.3-8.2) g/dL Albumin 2.5 L (3.9-5) g/dL HDL Cholesterol (40-59) mg/dL Lipase (13-60) units/L Hepatitis C Antibody (NonReactive) Diabetes panel 02/18/19 02/18/19 02/18/19 Range/Units 15:08 18:10 20:31 Sodium 138 (137-145) mmol/L Potassium 3.5 L (3.6-5.0) mmol/L Chloride 103.9 (98-107) mmol/L Carbon Dioxide 20 L (22-30) mmol/L BUN 21 H (9-20) mg/dL Creatinine 0.9 (0.8-1.5) mg/dL Glucose 164 H (75-100) mg/dL Hemoglobin A1c 5.3 (4-6) % Calcium 8.9 (8.4-10.2) mg/dL AST 71 H (5-40) units/L ALT 47 (7-56) units/L Alkaline Phosphatase 117 (35-129) units/L Total Protein 7.4 (6.3-8.2) g/dL Albumin 3.1 L (3.9-5) g/dL Triglycerides 92 (2-149) mg/dL HDL Cholesterol 25 L (40-59) mg/dL 02/19/19 02/19/19 Range/Units 08:53 Unknown Sodium 140 140 (137-145) mmol/L Potassium 4.9 5.2 H D (3.6-5.0) mmol/L Chloride 109.9 H 108.8 H (98-107) mmol/L Carbon Dioxide 20 L 21 L (22-30) mmol/L BUN 30 H 27 H (9-20) mg/dL Creatinine 2.2 H 1.7 H D (0.8-1.5) mg/dL Glucose 117 H 148 H (75-100) mg/dL Hemoglobin A1c (4-6) % Calcium 7.0 L 7.1 L D (8.4-10.2) mg/dL AST 56 H 66 H (5-40) units/L ALT 35 37 (7-56) units/L Alkaline Phosphatase 76 72 (35-129) units/L Total Protein 5.7 L 6.0 L (6.3-8.2) g/dL Albumin 2.4 L 2.5 L (3.9-5) g/dL Triglycerides (2-149) mg/dL HDL Cholesterol (40-59) mg/dL Calcium panel 02/18/19 02/19/19 02/19/19 Range/Units 15:08 08:53 Unknown Calcium 8.9 7.0 L 7.1 L D (8.4-10.2) mg/dL Albumin 3.1 L 2.4 L 2.5 L (3.9-5) g/dL Pituitary panel 02/18/19 02/19/19 02/19/19 Range/Units 15:08 08:53 Unknown Sodium 138 140 140 (137-145) mmol/L Potassium 3.5 L 4.9 5.2 H D (3.6-5.0) mmol/L Chloride 103.9 109.9 H 108.8 H (98-107) mmol/L Carbon Dioxide 20 L 20 L 21 L (22-30) mmol/L BUN 21 H 30 H 27 H (9-20) mg/dL Creatinine 0.9 2.2 H 1.7 H D (0.8-1.5) mg/dL Glucose 164 H 117 H 148 H (75-100) mg/dL Calcium 8.9 7.0 L 7.1 L D (8.4-10.2) mg/dL Adrenal panel 02/18/19 02/19/19 02/19/19 Range/Units 15:08 08:53 Unknown Sodium 138 140 140 (137-145) mmol/L Potassium 3.5 L 4.9 5.2 H D (3.6-5.0) mmol/L Chloride 103.9 109.9 H 108.8 H (98-107) mmol/L Carbon Dioxide 20 L 20 L 21 L (22-30) mmol/L BUN 21 H 30 H 27 H (9-20) mg/dL Creatinine 0.9 2.2 H 1.7 H D (0.8-1.5) mg/dL Glucose 164 H 117 H 148 H (75-100) mg/dL Calcium 8.9 7.0 L 7.1 L D (8.4-10.2) mg/dL Total Bilirubin 3.80 H 1.80 H 2.50 H (0.1-1.2) mg/dL AST 71 H 56 H 66 H (5-40) units/L ALT 47 35 37 (7-56) units/L Alkaline Phosphatase 117 76 72 (35-129) units/L Total Protein 7.4 5.7 L 6.0 L (6.3-8.2) g/dL Albumin 3.1 L 2.4 L 2.5 L (3.9-5) g/dL - Imaging CT scan - abdomen: report reviewed, image reviewed CT scan - pelvis: report reviewed, image reviewed US - abdomen: report reviewed, image reviewed Assessment and Plan 63 yo M with 1. cholelithiasis 2. acute pancreatitis 3. elevated bilirubin ?choledocolithiasis Plan: 1. IVF 2. Clear liquid diet 3. repeat lipase, CMP, CBC in am 4. empiric abx 5. prn pain and nausea control 6. Cardiology consult 7. GI on board - MRCP ordered but patient too large for machine. Will defer to GI team regarding ERCP 8. Discussed possible cholecystectomy with the patient. He has multiple risk factors for general anesthesia including but not limited to morbid obesity, recent PCI with stent (patient states he is on blood thinning medication). Will await cards recs and patient's clinical course to make further recommendations regarding surgery. Thank you, please call with questions.
[2019-02-19] MEDS ORDERED: CARVEDILOL 12.5 MG TAB PO SCH ×2 (22:00)
[2019-02-19] MEDS: CARVEDILOL 6.25 MG TAB PO SCH (22:28)
[2019-02-20] MEDS: HYDROmorphone 2 MG/1 ML INJ IV PRN ×4 (02:42→22:55)
[2019-02-20] MEDS: D5W/0.45% NACL 1,000 ML IV SCH ×2 (02:42→12:21)
[2019-02-20] MEDS: diphenhydrAMINE 50 MG/ML VIAL IV PRN ×2 (02:42→12:23)
[2019-02-20 06:05] LABS: Basophils % (Auto) 0.2 % (0.0-1.8); Eosinophils # (Auto) 0.3 K/mm3 (0.0-0.4); Eosinophils % (Auto) 1.9 % (0.0-4.3); Hematocrit 44.7 % (35.5-45.6); Lymphocytes # (Auto) 0.8 K/mm3 (1.2-5.4); Lymphocytes % (Auto) 5.3 % (13.4-35.0); Mean Corpuscular HGB Conc 34 % (32-34); Mean Corpuscular Volume 100 fl (84-94); Monocytes # (Auto) 1.2 K/mm3 (0.0-0.8); Monocytes % (Auto) 7.5 % (0.0-7.3); Platelet Count 102 K/mm3 (140-440); Red Blood Count 4.48 M/mm3 (3.65-5.03); Red Cell Distribution Width 15.3 % (13.2-15.2)
[2019-02-20 06:21] LABS: Albumin 2.6 g/dL (3.9-5); Calcium 6.9 mg/dL (8.4-10.2)
--- NOTE | 2019-02-20 08:36 | Event Note ---
Date: 02/20/19 Hold Lisinopril for now because worsening VAHE with Cr 3.4 today
--- NOTE | 2019-02-20 09:14 | Progress Note ---
Assessment and Plan Assessment and plan: Acute pancreatitis Lipase down to 176 from 1104 Started on Clear liquid diet Decrease Dilaudid to 1 mg iv Q 3hrs IV fluids for now GI Physician following surg following Cholelithiasios surg following Dr. Brunson considering cholecystectomy SIRS (systemic inflammatory response syndrome) IV Abx AVHE Creatinine worsening, 3.4 today Nephrology consulted Elevated troponin Cardiolgy consulted, evaluated Hypokalemia Supplemented Chest pain Secondary to reflux and pancreatitis Serial troponins Pain control Reflux esophagitis IV Protonix for now Hypertension Catapres patch TTS 1 every weekly Coronary artery disease Cont Aspirin cardiology following Hyperlipidemia Hold statins Transaminitis has hep C Hepatitis C infection DVT prophylaxis Lovenox 30 mg subcutaneous daily and GI prophylaxis full code status History Interval history: Abdominal pain Nausea Hospitalist Physical - Physical exam Narrative exam: Gen: Not in acute distress, lying in bed, morbidly obese HEENT: Normocephalic, atraumatic Neck: supple, no JVD Heart: S1 and S2 reg, no murmurs, rubs or gallop Lungs: Clear to auscultation, no rhonchi, no wheeze Abd: soft, tender, no rebound tenderness, obese, normal BS, Ext: No edema, no clubbing, no cyanosis Neuro: Awake, alert, oriented X 3, no focal neurological signs - Constitutional Vitals: Temp Pulse Resp BP Pulse Ox 98.6 F 72 21 95/53 87 02/20/19 05:46 02/20/19 05:46 02/20/19 05:46 02/20/19 05:46 02/20/19 05:46 General appearance: Present: obese Results - Labs CBC & Chem 7: 02/20/19 05:28 02/20/19 05:28 Labs: Laboratory Last Values WBC 16.0 K/mm3 (4.5-11.0) H 02/20/19 05:28 RBC 4.48 M/mm3 (3.65-5.03) 02/20/19 05:28 Hgb 15.0 gm/dl (11.8-15.2) 02/20/19 05:28 Hct 44.7 % (35.5-45.6) 02/20/19 05:28 MCV 100 fl (84-94) H 02/20/19 05:28 MCH 34 pg (28-32) H 02/20/19 05:28 MCHC 34 % (32-34) 02/20/19 05:28 RDW 15.3 % (13.2-15.2) H 02/20/19 05:28 Plt Count 102 K/mm3 (140-440) L 02/20/19 05:28 Lymph % (Auto) 5.3 % (13.4-35.0) L 02/20/19 05:28 [place] % (Auto) 7.5 % (0.0-7.3) H 02/20/19 05:28 Eos % (Auto) 1.9 % (0.0-4.3) 02/20/19 05:28 Baso % (Auto) 0.2 % (0.0-1.8) 02/20/19 05:28 Lymph # 0.8 K/mm3 (1.2-5.4) L 02/20/19 05:28 [place] # 1.2 K/mm3 (0.0-0.8) H 02/20/19 05:28 Eos # 0.3 K/mm3 (0.0-0.4) 02/20/19 05:28 Baso # 0.0 K/mm3 (0.0-0.1) 02/20/19 05:28 Seg Neutrophils % 85.1 % (40.0-70.0) H 02/20/19 05:28 Seg Neutrophils # 13.6 K/mm3 (1.8-7.7) H 02/20/19 05:28 PT 13.7 Sec. (12.2-14.9) 02/18/19 15:08 INR 1.06 (0.87-1.13) 02/18/19 15:08 APTT 32.1 Sec. (24.2-36.6) 02/18/19 15:08 Sodium 139 mmol/L (137-145) 02/20/19 05:28 Potassium 4.4 mmol/L (3.6-5.0) 02/20/19 05:28 Chloride 105.7 mmol/L (98-107) 02/20/19 05:28 Carbon Dioxide 22 mmol/L (22-30) 02/20/19 05:28 Anion Gap 16 mmol/L 02/20/19 05:28 BUN 42 mg/dL (9-20) H 02/20/19 05:28 Creatinine 3.4 mg/dL (0.8-1.5) H D 02/20/19 05:28 Estimated GFR 18 ml/min 02/20/19 05:28 BUN/Creatinine Ratio 12 % 02/20/19 05:28 Glucose 132 mg/dL (75-100) H 02/20/19 05:28 Hemoglobin A1c 5.3 % (4-6) 02/18/19 20:31 Calcium 6.9 mg/dL (8.4-10.2) L 02/20/19 05:28 Total Bilirubin 2.20 mg/dL (0.1-1.2) H 02/20/19 05:28 AST 53 units/L (5-40) H 02/20/19 05:28 ALT 34 units/L (7-56) 02/20/19 05:28 Alkaline Phosphatase 97 units/L (35-129) 02/20/19 05:28 Troponin T 0.076 ng/mL (0.00-0.029) H D 02/18/19 20:33 Total Protein 6.4 g/dL (6.3-8.2) 02/20/19 05:28 Albumin 2.6 g/dL (3.9-5) L 02/20/19 05:28 Albumin/Globulin Ratio 0.7 % 02/20/19 05:28 Triglycerides 92 mg/dL (2-149) 02/18/19 18:10 Cholesterol 82 mg/dL (50-199) 02/18/19 18:10 LDL Cholesterol Direct 54 mg/dL (50-130) 02/18/19 18:10 HDL Cholesterol 25 mg/dL (40-59) L 02/18/19 18:10 Cholesterol/HDL Ratio 3.28 % 02/18/19 18:10 Lipase 176 units/L (13-60) H 02/20/19 05:28 Hepatitis A IgM Ab Non-reactive (NonReactive) 02/18/19 20:32 Hep Bs Antigen Non-reactive (Negative) 02/18/19 20:32 Hep B Core IgM Ab Non-reactive (NonReactive) 02/18/19 20:32 Hepatitis C Antibody Reactive (NonReactive) A 02/18/19 20:32 Active Medications - Current Medications Current Medications: Generic Name Dose Route Start Last Admin Trade Name Freq PRN Reason Stop Dose Admin Acetaminophen 650 mg 02/18/19 19:15 Tylenol PO Q4H PRN Pain MILD(1-3)/Fever >100.5/NORIEGA Aspirin 81 mg 02/20/19 10:00 Baby Aspirin PO QDAY JONATHAN Carvedilol 6.25 mg 02/19/19 22:00 02/19/19 22:28 Coreg PO 6.25 mg BID JONATHAN Administration Diphenhydramine HCl 25 mg 02/19/19 12:05 02/20/19 02:42 Benadryl IV 25 mg Q6H PRN Administration Itching Enoxaparin Sodium 40 mg 02/18/19 22:00 02/19/19 10:24 Enoxaparin SUB-Q 40 mg QDAY@1000 JONATHAN Administration Hydromorphone HCl 2 mg 02/19/19 09:06 02/20/19 02:42 Dilaudid IV 2 mg Q4H PRN Administration Pain , Severe (7-10) Dextrose/Sodium Chloride 1,000 mls @ 100 mls/hr 02/18/19 20:00 02/20/19 02:42 D5/0.45ns IV 100 mls/hr DIRECT JONATHAN Administration Ondansetron HCl 4 mg 02/18/19 19:15 02/19/19 12:27 Zofran IV 4 mg Q3H PRN Administration Nausea And Vomiting Pantoprazole Sodium 40 mg 02/19/19 10:00 02/19/19 10:25 Protonix PO 40 mg QDAY JONATHAN Administration Sodium Chloride 10 ml 02/18/19 22:00 02/19/19 22:24 Sodium Chloride Flush Syringe 10 Ml IV 10 ml BID JONATHAN Administration Sodium Chloride 10 ml 02/18/19 19:15 Sodium Chloride Flush Syringe 10 Ml IV PRN PRN LINE FLUSH
--- NOTE | 2019-02-20 11:21 | Progress Note ---
Assessment and Plan Stable cardiac status Echocardiogram pending Acute pancreatitis Cholelithiasis SIRS (systemic inflammatory response syndrome) Acute kidney injury [facility] 01/28/2019: nonobstructive CAD (left main, LAD and circ <10% luminal irregularities, mid RCA 60% stenosis, distal RCA 80% stenosis. Echo 08/2014: EF 50-55%, LA mildly dilated, mild with mean gradient 13mmHg. Subjective Date of service: 02/20/19 Principal diagnosis: pancreatitis Interval history: Sitting up in bed. No chest pain or shortness of breath. Objective Vital Signs Temp Pulse Resp BP Pulse Ox 02/20/19 05:46 98.6 F 72 21 95/53 87 02/20/19 05:00 95 02/19/19 23:19 99.2 F 67 20 117/47 89 02/19/19 22:28 67 135/49 02/19/19 18:17 63 123/56 02/19/19 16:44 98.3 F 63 18 123/56 93 02/19/19 11:57 99.2 F 70 24 100/42 88 - Physical Examination HEENT: Positive: PERRL, Normocephaly, Mucus Membranes Moist Neck: Positive: neck supple, trachea midline Cardiac: Positive: Reg Rate and Rhythm Lungs: Positive: clear to auscultation, Normal Breath Sounds Neuro: Positive: Grossly Intact Abdomen: Positive: Tender Skin: Negative: Rash Musculoskeletal: No Pain Extremities: Absent: edema - Labs and Meds Cardiac Enzymes 02/20/19 Range/Units 05:28 AST 53 H (5-40) units/L CBC 02/20/19 Range/Units 05:28 WBC 16.0 H (4.5-11.0) K/mm3 RBC 4.48 (3.65-5.03) M/mm3 Hgb 15.0 (11.8-15.2) gm/dl Hct 44.7 (35.5-45.6) % Plt Count 102 L (140-440) K/mm3 Lymph # 0.8 L (1.2-5.4) K/mm3 [place] # 1.2 H (0.0-0.8) K/mm3 Eos # 0.3 (0.0-0.4) K/mm3 Baso # 0.0 (0.0-0.1) K/mm3 Comprehensive Metabolic Panel 02/20/19 Range/Units 05:28 Sodium 139 (137-145) mmol/L Potassium 4.4 (3.6-5.0) mmol/L Chloride 105.7 (98-107) mmol/L Carbon Dioxide 22 (22-30) mmol/L BUN 42 H (9-20) mg/dL Creatinine 3.4 H D (0.8-1.5) mg/dL Glucose 132 H (75-100) mg/dL Calcium 6.9 L (8.4-10.2) mg/dL AST 53 H (5-40) units/L ALT 34 (7-56) units/L Alkaline Phosphatase 97 (35-129) units/L Total Protein 6.4 (6.3-8.2) g/dL Albumin 2.6 L (3.9-5) g/dL - Imaging and Cardiology EKG: report reviewed, image reviewed Echo: report reviewed (08/2014 showed EF 50-55%, LA mildly dilated, mild with mean gradient 13mmHg. ) Cardiac cath: report reviewed (OP LHC done at [place] on 01/28/2019 (indicated due to abnormal stress test) showed nonobstructive CAD (left main, LAD and circ <10% luminal irregularities, mid RCA 60% stenosis, distal RCA 80% stenosis. ) - EKG Sinus rhythms and dysrhythmias: sinus rhythm
--- NOTE | 2019-02-20 11:46 | Ultrasound Report ---
ULTRASOUND RENAL INDICATION / CLINICAL INFORMATION: VAHE. COMPARISON: None available. FINDINGS: RIGHT KIDNEY: - Length = 13.4 cm. [Normal > 9.0 cm] - Parenchymal Thickness = 2.1 cm. [Normal > 1.5 cm] - Echogenicity: Normal -- hypoechoic or isoechoic to liver/spleen. - Hydronephrosis: None. - Cyst or mass: No significant abnormality. LEFT KIDNEY: - Length = 8.9 cm. [Normal > 9.0 cm] - Parenchymal Thickness = 1.4 cm. [Normal > 1.5 cm] - Echogenicity: Normal -- hypoechoic or isoechoic to liver/spleen. - Hydronephrosis: None. - Cyst or mass: No significant abnormality. URINARY BLADDER: No significant abnormality. ADDITIONAL FINDINGS: Possible 5 mm nonobstructive right renal calculus. IMPRESSION: 1. The left kidney is significantly smaller than the right. No evidence of medical renal disease or h ydronephrosis. 2. Possible small nonobstructive right renal calculus. Renal Parenchymal Thickness Parenchyma = Cortex + Medullary Pyramid - Normal >= 1.5 cm - Mild thinning = 1.0-1.49 cm - Moderate thinning = 0.5-0.99 cm - Severe thinning < 0.5 cm Signer Name: Jaspreet Gaines MD Signed: 02/20/2019 11:42 AM Workstation Name: [id number]
[2019-02-20] MEDS: PANTOPRAZOLE 40 MG TAB PO SCH (12:22)
[2019-02-20] MEDS: CARVEDILOL 6.25 MG TAB PO SCH ×2 (12:23→22:50)
[2019-02-20] MEDS: ASPIRIN 81 MG TAB CHEW PO SCH (12:23)
[2019-02-20] MEDS: ENOXAPARIN 30 MG/0.3 ML INJ SUB-Q SCH (12:23)
--- NOTE | 2019-02-20 13:10 | Progress Note ---
Assessment and Plan 63 yo M with 1. cholelithiasis 2. acute pancreatitis 3. elevated bilirubin ?choledocolithiasis Plan: 1. IVF 2. May adv to full liquids 3. repeat lipase, CMP, CBC in am - Lipase trending down, Bili remains elevated, WBC slightly better 4. empiric abx 5. prn pain and nausea control 6. Cardiology consult 7. GI on board - MRCP ordered but patient too large for machine. Will defer to GI team regarding ERCP 8. Discussed possible cholecystectomy with the patient. He has multiple risk factors for general anesthesia including but not limited to morbid obesity, r ecent PCI with stent (patient states he is on blood thinning medication). Will await cards recs and patient's clinical course to make further recommendations regarding surgery. Thank you, please call with questions. Subjective Date of service: 02/20/19 Narrative: Pt seen and examined. Abdominal pain is slightly improved. NO n/v. Tolerating clear liquid diet. No f/c. Objective Vital Signs - 12hr 02/20/19 02/20/19 02/20/19 05:00 05:46 11:37 Temperature 98.6 F 98.0 F Pulse Rate 72 67 Respiratory 21 23 Rate Blood Pressure 95/53 124/58 O2 Sat by Pulse 95 87 95 Oximetry - General physical appearance Narrative Exam: Gen: AAOx3. NAD CV: S1, S2+ resp: even and unlabored Abd: soft, obese, ND, mild discomfort on palpation of epigastric area. No r/r/g Ext: no c/c/e - Labs 02/20/19 05:28 02/20/19 05:28 Diabetes panel 02/20/19 Range/Units 05:28 Sodium 139 (137-145) mmol/L Potassium 4.4 (3.6-5.0) mmol/L Chloride 105.7 (98-107) mmol/L Carbon Dioxide 22 (22-30) mmol/L BUN 42 H (9-20) mg/dL Creatinine 3.4 H D (0.8-1.5) mg/dL Glucose 132 H (75-100) mg/dL Calcium 6.9 L (8.4-10.2) mg/dL AST 53 H (5-40) units/L ALT 34 (7-56) units/L Alkaline Phosphatase 97 (35-129) units/L Total Protein 6.4 (6.3-8.2) g/dL Albumin 2.6 L (3.9-5) g/dL Calcium panel 02/20/19 Range/Units 05:28 Calcium 6.9 L (8.4-10.2) mg/dL Albumin 2.6 L (3.9-5) g/dL Pituitary panel 02/20/19 Range/Units 05:28 Sodium 139 (137-145) mmol/L Potassium 4.4 (3.6-5.0) mmol/L Chloride 105.7 (98-107) mmol/L Carbon Dioxide 22 (22-30) mmol/L BUN 42 H (9-20) mg/dL Creatinine 3.4 H D (0.8-1.5) mg/dL Glucose 132 H (75-100) mg/dL Calcium 6.9 L (8.4-10.2) mg/dL Adrenal panel 02/20/19 Range/Units 05:28 Sodium 139 (137-145) mmol/L Potassium 4.4 (3.6-5.0) mmol/L Chloride 105.7 (98-107) mmol/L Carbon Dioxide 22 (22-30) mmol/L BUN 42 H (9-20) mg/dL Creatinine 3.4 H D (0.8-1.5) mg/dL Glucose 132 H (75-100) mg/dL Calcium 6.9 L (8.4-10.2) mg/dL Total Bilirubin 2.20 H (0.1-1.2) mg/dL AST 53 H (5-40) units/L ALT 34 (7-56) units/L Alkaline Phosphatase 97 (35-129) units/L Total Protein 6.4 (6.3-8.2) g/dL Albumin 2.6 L (3.9-5) g/dL
--- NOTE | 2019-02-20 19:05 | Consultation ---
History of Present Illness - Reason for Consult acute renal failure - History of Present Illness This is a 63-year-old male with past medical history of hypertension, coronary artery disease, and hyperlipidemia who presents with for severe epigastric pain and substernal chest pain concerning for pancreatitis. He denies any known kidney disease, but does state that he was once told in a hospital that he may need dialysis due to severe kidney problem, although unclear when this was. Chart review shows baseline creatinine of 0.9. Notes that abdominal pain and chest pain is better but still bothersome. No dyspnea or leg swelling noted. Notes normal urination, but not urinated much today Past History Past Medical History: CAD (Hx of stent x 1), hepatitis (Hepatitis C; failed prior treament with Interferon), hypertension, hyperlipidemia, liver disease ((CRUZ, Hx of EtOH)), other (Morbid Obesity) Past Surgical History: Other (Leg Fracture, cardiac stent) Social history: alcohol abuse ((Hx of; no EtOH x 3 years per patient)). denies: smoking Family history: no significant family history Medications and Allergies Allergies Allergy/AdvReac Type Severity Reaction Status Date / Time No Known Allergies Allergy Verified 07/24/14 10:24 Home Medications Medication Instructions Recorded Confirmed Last Taken Type Atorvastatin [Lipitor Tab] 80 mg PO QHS 02/18/19 02/18/19 02/17/19 History Carvedilol [Coreg] 12.5 mg PO BID 02/18/19 02/18/19 02/17/19 History Lisinopril [Zestril] 20 mg PO QDAY 02/18/19 02/18/19 02/17/19 History Active Meds: Active Medications Acetaminophen (Tylenol) 650 mg PO Q4H PRN PRN Reason: Pain MILD(1-3)/Fever >100.5/NORIEGA Aspirin (Baby Aspirin) 81 mg PO QDAY [facility] Last Admin: 02/20/19 12:23 Dose: 81 mg Documented by: Carvedilol (Coreg) 6.25 mg PO BID [facility] Last Admin: 02/20/19 12:23 Dose: 6.25 mg Documented by: Diphenhydramine HCl (Benadryl) 25 mg IV Q6H PRN PRN Reason: Itching Last Admin: 02/20/19 12:23 Dose: 25 mg Documented by: Enoxaparin Sodium (Enoxaparin) 30 mg SUB-Q QDAY [facility] Last Admin: 02/20/19 12:23 Dose: 30 mg Documented by: Hydromorphone HCl (Dilaudid) 2 mg IV Q4H PRN PRN Reason: Pain , Severe (7-10) Last Admin: 02/20/19 18:42 Dose: 2 mg Documented by: Dextrose/Sodium Chloride (D5/0.45ns) 1,000 mls @ 100 mls/hr IV DIRECT [facility] Last Admin: 02/20/19 12:21 Dose: 100 mls/hr Documented by: Ondansetron HCl (Zofran) 4 mg IV Q3H PRN PRN Reason: Nausea And Vomiting Last Admin: 02/19/19 12:27 Dose: 4 mg Documented by: Pantoprazole Sodium (Protonix) 40 mg PO QDAY [facility] Last Admin: 02/20/19 12:22 Dose: 40 mg Documented by: Sodium Chloride (Sodium Chloride Flush Syringe 10 Ml) 10 ml IV BID [facility] Last Admin: 02/20/19 12:23 Dose: 10 ml Documented by: Sodium Chloride (Sodium Chloride Flush Syringe 10 Ml) 10 ml IV PRN PRN PRN Reason: LINE FLUSH Review of Systems Constitutional: no fatigue, no weakness, no poor appetite Cardiovascular: no chest pain, no lightheadedness, no shortness of breath, no dyspnea on exertion Respiratory: no cough, no shortness of breath, no dyspnea on exertion, no congestion Gastrointestinal: abdominal pain, no nausea, no vomiting, no diarrhea, no constipation Genitourinary Male: no dysuria Musculoskeletal: no neck stiffness, no neck pain, no muscle weakness Neurological: no weakness, no parathesias, no headaches Psychiatric: no anxiety Exam - Vital Signs Vital signs: Vital Signs Temp Pulse Resp BP Pulse Ox 98.5 F 71 16 121/47 95 02/18/19 14:31 02/18/19 14:31 02/18/19 14:31 02/18/19 14:31 02/18/19 14:31 - Physical Exam Narrative exam: Gen: No acute distress, lying in bed, morbidly obese HEENT: Normocephalic, atraumatic Neck: supple, no JVD Heart: S1 and S2 reg, no murmurs, rubs or gallop Lungs: Clear to auscultation, no rhonchi, no wheeze Abd: soft, tender, no rebound tenderness, obese, normal BS, Ext: No edema, no clubbing, no cyanosis Neuro: Awake, alert, oriented X 3, no focal neurological signs Results - Lab Results 02/20/19 05:28 02/20/19 05:28 Most recent lab results Calcium 6.9 mg/dL (8.4-10.2) L 02/20/19 05:28 Assessment and Plan This is a 63 year old man with CAD who presents with pancreatitis. Nephrology consulted for VAHE. # VAHE: baseline creatinine appears to be around 0.9, now to 3.4. Suspect tubular injury in setting of pancreatitis, dehydration. Unclear why creatinine has been so labile. Renal ultrasound shows small left kidney. Less likely but could consider IGG4 disease in setting of VAHE and pancreatitis, although would be less likely (will consider if WBCs on UA) - no acute needs for renal replacement therapy with stable volume status, normal lytes - urine studies ordered - continue IVF and supportive measures for pancreatitis, appreciate GI and surgery input - will order renal us with doppler given vastly different sizes, potential renovascular disease - add on CK to rule out rhabdo - consider biopsy if renal function does not improve without clear etiology # Leukocytosis # Pancreatitis
[2019-02-21 05:05] LABS: Hematocrit 41.7 % (35.5-45.6); Hemoglobin 14.2 gm/dl (11.8-15.2); Mean Corpuscular HGB Conc 34 % (32-34); Mean Corpuscular Volume 99 fl (84-94); Red Blood Count 4.23 M/mm3 (3.65-5.03); Red Cell Distribution Width 14.8 % (13.2-15.2)
[2019-02-21 05:12] LABS: Platelet Count 85 K/mm3 (140-440)
[2019-02-21 05:21] LABS: Albumin 2.6 g/dL (3.9-5); Calcium 6.7 mg/dL (8.4-10.2)
[2019-02-21] MEDS: HYDROmorphone 2 MG/1 ML INJ IV PRN ×3 (08:20→22:43)
[2019-02-21] MEDS: PANTOPRAZOLE 40 MG TAB PO SCH (09:28)
[2019-02-21] MEDS: CARVEDILOL 6.25 MG TAB PO SCH ×2 (09:28→22:43)
[2019-02-21] MEDS: ASPIRIN 81 MG TAB CHEW PO SCH (09:29)
[2019-02-21] MEDS: ENOXAPARIN 30 MG/0.3 ML INJ SUB-Q SCH (09:29)
[2019-02-21] MEDS: D5W/0.45% NACL 1,000 ML IV SCH ×2 (09:30→19:45)
[2019-02-21 10:00] LABS: Bilirubin,Urine NEG (Negative); Blood,Urine MOD (Negative); Color,Urine Amber (Yellow); Protein,Urine <15 mg/dL mg/dL (Negative)
[2019-02-21 10:30] LABS: Creatinine,Urine 103.9 mg/dL (0.1-20.0)
--- NOTE | 2019-02-21 13:14 | Progress Note ---
Assessment and Plan This is a 63 year old man with CAD who presents with pancreatitis. Nephrology consulted for VAHE. # VAHE: baseline creatinine appears to be around 0.9, now to 2.7 from peak 3.4. Suspect tubular injury in setting of pancreatitis, dehydration. Hopeful for renal recovery with supportive measures. Renal ultrasound shows small left kidney. Less likely but could consider IGG4 disease in setting of VAHE and pancreatitis, although would be less likely with lack of WBCs on UA. Urine studies benign. - no acute needs for renal replacement therapy with stable volume status, normal lytes - continue IVF and supportive measures for pancreatitis, appreciate GI and surgery input - will order renal us with doppler given vastly different sizes, potential renovascular disease - add on CK to rule out rhabdo - consider biopsy if renal function does not improve without clear etiology # Leukocytosis # Pancreatitis Subjective Date of service: 02/21/19 Principal diagnosis: pancreatitis Interval history: No acute events noted overnight. Continues to have abdominal/chest pain, but improved. Continues on D5/0.5NS gtt. No dyspnea, no edema noted. Notes good urination. Objective - Exam Narrative Exam: Gen: No acute distress, lying in bed, morbidly obese HEENT: Normocephalic, atraumatic Neck: supple, no JVD Heart: S1 and S2 reg, no murmurs, rubs or gallop Lungs: Clear to auscultation, no rhonchi, no wheeze Abd: soft, tender, no rebound tenderness, obese, normal BS, Ext: No edema, no clubbing, no cyanosis Neuro: Awake, alert, oriented X 3, no focal neurological signs - Vital Signs Vital signs: Vital Signs - 12hr 02/21/19 02/21/19 05:16 11:29 Temperature 97.6 F 97.8 F Pulse Rate 68 Respiratory 20 20 Rate Blood Pressure 144/67 114/53 O2 Sat by Pulse 92 Oximetry - Lab 02/21/19 04:48 02/21/19 04:48 Most recent lab results Calcium 6.7 mg/dL (8.4-10.2) L 02/21/19 04:48 Urine Creatinine 103.9 mg/dL (0.1-20.0) H 02/21/19 09:27 Urine Sodium 10 mmol/L 02/21/19 09:27 Medications & Allergies - Medications Allergies/Adverse Reactions: Allergies No Known Allergies Allergy (Verified 07/24/14 10:24) Home Medications: Home Medications Medication Instructions Recorded Confirmed Last Taken Type Atorvastatin [Lipitor Tab] 80 mg PO QHS 02/18/19 02/18/19 02/17/19 History Carvedilol [Coreg] 12.5 mg PO BID 02/18/19 02/18/19 02/17/19 History Lisinopril [Zestril] 20 mg PO QDAY 02/18/19 02/18/19 02/17/19 History Active Medications: Generic Name Dose Route Start Last Admin Trade Name Freq PRN Reason Stop Dose Admin Acetaminophen 650 mg 02/18/19 19:15 Tylenol PO Q4H PRN Pain MILD(1-3)/Fever >100.5/NORIEGA Aspirin 81 mg 02/20/19 10:00 02/21/19 09:29 Baby Aspirin PO 81 mg QDAY JONATHAN Administration Carvedilol 6.25 mg 02/19/19 22:00 02/21/19 09:28 Coreg PO 6.25 mg BID JONATHAN Administration Diphenhydramine HCl 25 mg 02/19/19 12:05 02/20/19 12:23 Benadryl IV 25 mg Q6H PRN Administration Itching Enoxaparin Sodium 40 mg 02/22/19 10:00 Enoxaparin SUB-Q QDAY@1000 JONATHAN Hydromorphone HCl 2 mg 02/19/19 09:06 02/21/19 08:20 Dilaudid IV 2 mg Q4H PRN Administration Pain , Severe (7-10) Dextrose/Sodium Chloride 1,000 mls @ 100 mls/hr 02/18/19 20:00 02/21/19 09:30 D5/0.45ns IV 100 mls/hr DIRECT JONATHAN Administration Ondansetron HCl 4 mg 02/18/19 19:15 02/19/19 12:27 Zofran IV 4 mg Q3H PRN Administration Nausea And Vomiting Pantoprazole Sodium 40 mg 02/19/19 10:00 02/21/19 09:28 Protonix PO 40 mg QDAY JONATHAN Administration Sodium Chloride 10 ml 02/18/19 22:00 02/21/19 09:29 Sodium Chloride Flush Syringe 10 Ml IV 10 ml BID JONATHAN Administration Sodium Chloride 10 ml 02/18/19 19:15 Sodium Chloride Flush Syringe 10 Ml IV PRN PRN LINE FLUSH
--- NOTE | 2019-02-21 13:18 | Progress Note ---
Assessment and Plan Acute pancreatitis Lipase down to 176 from 1104 Started on Clear liquid diet Decrease Dilaudid to 1 mg iv Q 3hrs on IV fluids. Advance to full liquid GI Physician following surg following Cholelithiasios surg following Dr. Brunson considering cholecystectomy SIRS (systemic inflammatory response syndrome) IV Abx VAHE Creatinine improving Nephrology consulted Elevated troponin Cardiolgy consulted, evaluated Hyperkalemia corrected Chest pain Secondary to reflux and pancreatitis Serial troponins Pain control Reflux esophagitis IV Protonix for now Hypertension Catapres patch TTS 1 every weekly Coronary artery disease Cont Aspirin cardiology following Hyperlipidemia Hold statins Transaminitis has hep C Hepatitis C infection DVT prophylaxis Lovenox 30 mg subcutaneous daily and GI prophylaxis full code status Disposition: Advanced to regular diet. Discharge if tolerated. Subjective Date of service: 02/21/19 Principal diagnosis: pancreatitis Interval history: Still having abdominal pain. No nausea or vomiting. Objective - Exam Narrative Exam: Constitutional: Well-nourished well-developed. In no distress Head: Normocephalic atraumatic Eyes: Pupils are equal round and reactive to light Nose: No enlarged turbinates, no septal deviation. Mouth: Moist mucous membranes. Neck: Supple no thyromegaly. No bruit. No JVD Heart: Regular rate and rhythm, S1-S2 normal. No rubs murmurs or gallop Lungs: Clear to auscultation bilaterally. no rales or rhonchi Abdomen: Soft, tender. Bowel sound are present. Extremities: No edema, no cyanosis, no clubbing. Neuro: Alert oriented Oriented x3. No focal sensory or motor deficit. Skin: No rashes or hyperpigmented spots Musculoskeletal system: No joint pain or swelling Hematological: No petechia or subcutanous hemorrhages. Immunological: No multiple septic spots on the skin Lymphatic: No generalized lymphadenopathy Psychiatry: Euthymic. Calm. - Constitutional Vitals: Vital Signs - 12hr 02/21/19 02/21/19 05:16 11:29 Temperature 97.6 F 97.8 F Pulse Rate 68 Respiratory 20 20 Rate Blood Pressure 144/67 114/53 O2 Sat by Pulse 92 Oximetry - Labs CBC & Chem 7: 02/21/19 04:48 02/21/19 04:48 Labs: Abnormal lab results 02/21/19 02/21/19 02/21/19 Range/Units 04:48 04:48 09:27 WBC 13.5 H (4.5-11.0) K/mm3 MCV 99 H (84-94) fl MCH 34 H (28-32) pg Plt Count 85 L (140-440) K/mm3 Sodium 132 L D (137-145) mmol/L BUN 48 H (9-20) mg/dL Creatinine 2.7 H (0.8-1.5) mg/dL Glucose 138 H (75-100) mg/dL Calcium 6.7 L (8.4-10.2) mg/dL Total Bilirubin 3.20 H (0.1-1.2) mg/dL AST 41 H (5-40) units/L Total Protein 5.9 L (6.3-8.2) g/dL Albumin 2.6 L (3.9-5) g/dL Urine Creatinine 103.9 H (0.1-20.0) mg/dL
--- NOTE | 2019-02-21 13:35 | Progress Note ---
Assessment and Plan - Patient Problems (1) Acute pancreatitis Current Visit: Yes Status: Acute Plan to address problem: 63 yo M with 1. cholelithiasis 2. acute pancreatitis 3. elevated bilirubin ?choledocolithiasis Plan: 1. IVF 2. Cont with full liquids until labs near normal 3. repeat lipase, CMP, CBC in am - Lipase trending down, Bili remains elevated, WBC slightly better 4. empiric abx 5. prn pain and nausea control 6. Cardiology consult - appreciated 7. GI on board - MRCP ordered but patient too large for machine. Will defer to GI team regarding ERCP 8. Discussed possible cholecystectomy with the patient. He has multiple risk factors for general anesthesia including but not limited to morbid obesity, recent PCI with stent. Thank you, please call with questions. Subjective Date of service: 02/21/19 Patient Reports: Positive: feels better, pain is less (feels he has "hunger" pains now). Negative: nausea, vomiting Objective Vital Signs - 12hr 02/21/19 02/21/19 05:16 11:29 Temperature 97.6 F 97.8 F Pulse Rate 68 Respiratory 20 20 Rate Blood Pressure 144/67 114/53 O2 Sat by Pulse 92 Oximetry - General physical appearance no distress, no pain, obese - Respiratory normal expansion, normal respiratory effort - Abdomen soft, not tender, not distended, not guarding, not rigid - Integumentary no rash, no growths, no abnormal pigmentation - Psychiatric oriented to time, oriented to person, oriented to place, speech is normal, memory intact - Labs 02/21/19 04:48 02/21/19 04:48 Diabetes panel 02/21/19 Range/Units 04:48 Sodium 132 L D (137-145) mmol/L Potassium 4.1 (3.6-5.0) mmol/L Chloride 103.8 (98-107) mmol/L Carbon Dioxide 22 (22-30) mmol/L BUN 48 H (9-20) mg/dL Creatinine 2.7 H (0.8-1.5) mg/dL Glucose 138 H (75-100) mg/dL Calcium 6.7 L (8.4-10.2) mg/dL AST 41 H (5-40) units/L ALT 31 (7-56) units/L Alkaline Phosphatase 87 (35-129) units/L Total Protein 5.9 L (6.3-8.2) g/dL Albumin 2.6 L (3.9-5) g/dL Calcium panel 02/21/19 Range/Units 04:48 Calcium 6.7 L (8.4-10.2) mg/dL Albumin 2.6 L (3.9-5) g/dL Pituitary panel 02/21/19 Range/Units 04:48 Sodium 132 L D (137-145) mmol/L Potassium 4.1 (3.6-5.0) mmol/L Chloride 103.8 (98-107) mmol/L Carbon Dioxide 22 (22-30) mmol/L BUN 48 H (9-20) mg/dL Creatinine 2.7 H (0.8-1.5) mg/dL Glucose 138 H (75-100) mg/dL Calcium 6.7 L (8.4-10.2) mg/dL Adrenal panel 02/21/19 Range/Units 04:48 Sodium 132 L D (137-145) mmol/L Potassium 4.1 (3.6-5.0) mmol/L Chloride 103.8 (98-107) mmol/L Carbon Dioxide 22 (22-30) mmol/L BUN 48 H (9-20) mg/dL Creatinine 2.7 H (0.8-1.5) mg/dL Glucose 138 H (75-100) mg/dL Calcium 6.7 L (8.4-10.2) mg/dL Total Bilirubin 3.20 H (0.1-1.2) mg/dL AST 41 H (5-40) units/L ALT 31 (7-56) units/L Alkaline Phosphatase 87 (35-129) units/L Total Protein 5.9 L (6.3-8.2) g/dL Albumin 2.6 L (3.9-5) g/dL
--- NOTE | 2019-02-21 15:50 | Event Note ---
Date: 02/21/[address] Sykes. We have no plans to do ERCP given normal ALT and ALP, and no evidence on imaging studies of choledocholithiasis. Elevated AST/TBili - likely cholestasis of illness and not indicative of obstruction. Pancreatitis likely biliary, and would recommend CCY and IOC.
[2019-02-21] MEDS: ONDANSETRON 4 MG/2 ML INJ IV PRN (22:43)
[2019-02-21] MEDS ORDERED: IPRATROPIUM/ALBUTEROL SULFATE 3 ML AMPUL.NEB IH ONE (23:01)
[2019-02-21] MEDS: IPRATROPIUM/ALBUTEROL SULFATE 3 ML AMPUL.NEB IH SCH (23:03)
[2019-02-22] MEDS: IPRATROPIUM/ALBUTEROL SULFATE 3 ML AMPUL.NEB IH SCH ×4 (01:29→20:24)
[2019-02-22] MEDS: D5W/0.45% NACL 1,000 ML IV SCH (04:50)
[2019-02-22] MEDS: HYDROmorphone 2 MG/1 ML INJ IV PRN ×2 (04:54→11:54)
[2019-02-22] MEDS: ONDANSETRON 4 MG/2 ML INJ IV PRN (04:54)
[2019-02-22 05:47] LABS: Basophils % (Auto) 0.3 % (0.0-1.8); Eosinophils # (Auto) 0.2 K/mm3 (0.0-0.4); Eosinophils % (Auto) 2.7 % (0.0-4.3); Hematocrit 40.4 % (35.5-45.6); Hemoglobin 14.3 gm/dl (11.8-15.2); Lymphocytes # (Auto) 1.2 K/mm3 (1.2-5.4); Lymphocytes % (Auto) 13.4 % (13.4-35.0); Mean Corpuscular HGB Conc 35 % (32-34); Mean Corpuscular Volume 97 fl (84-94); Monocytes # (Auto) 1.3 K/mm3 (0.0-0.8); Monocytes % (Auto) 13.6 % (0.0-7.3); Red Blood Count 4.15 M/mm3 (3.65-5.03); Red Cell Distribution Width 14.6 % (13.2-15.2)
[2019-02-22 05:50] LABS: Platelet Count 83 K/mm3 (140-440)
[2019-02-22 06:06] LABS: Alanine Aminotransferase 27 units/L (7-56); Albumin 2.5 g/dL (3.9-5); BUN/Creatinine Ratio 21; Blood Urea Nitrogen 23 mg/dL (9-20); Calcium 6.9 mg/dL (8.4-10.2); Hemolysis Index 3
--- NOTE | 2019-02-22 11:01 | Progress Note ---
Assessment and Plan Acute pancreatitis Lipase down to 40 from 1104 Tolerating clear liquid. Advance to Decrease Dilaudid to 1 mg iv Q 3hrs on IV fluids. Advance to full liquid GI Physician following surg following Cholelithiasis surg following Discussed with Dr. Sykes who is was coverign for Dr. Davidson over the weekend. surgeons agreed to discharge the patient and for him to follow up with them on out patient bases for an elective surgery b/c of multiple talat factords that include PCI and morbid obesity Hyperbilirubinemia possible Cholestasis No plan for ERCP per GI rcommenceded intraoperative cholangio VAHE Creatinine improving Nephrology consulted Elevated troponin Cardiolgy consulted, evaluated Hyperkalemia corrected Chest pain Secondary to reflux and pancreatitis Serial troponins Pain control Reflux esophagitis IV Protonix for now Hypertension Catapres patch TTS 1 every weekly Coronary artery disease Cont Aspirin cardiology following Hyperlipidemia Hold statins Transaminitis has hep C Hepatitis C infection DVT prophylaxis Lovenox 30 mg subcutaneous daily and GI prophylaxis full code status Disposition: Advanced to regular diet. Discharge if tolerated. Subjective Date of service: 02/22/19 Principal diagnosis: pancreatitis, hyperbilirubinemia Interval history: Still having abdominal pain. No nausea or vomiting. No fever. Tolerating clear liquid Objective - Exam Narrative Exam: Constitutional: Well-nourished well-developed. Obese. In no distress Head: Normocephalic atraumatic Eyes: Pupils are equal round and reactive to light Nose: No enlarged turbinates, no septal deviation. Mouth: Moist mucous membranes. Neck: Supple no thyromegaly. No bruit. No JVD Heart: Regular rate and rhythm, S1-S2 normal. No rubs murmurs or gallop Lungs: Clear to auscultation bilaterally. no rales or rhonchi Abdomen: Soft, tender. Bowel sound are present. Extremities: No edema, no cyanosis, no clubbing. Neuro: Alert oriented Oriented x3. No focal sensory or motor deficit. Skin: No rashes or hyperpigmented spots Musculoskeletal system: No joint pain or swelling Hematological: No petechia or subcutanous hemorrhages. Immunological: No multiple septic spots on the skin Lymphatic: No generalized lymphadenopathy Psychiatry: Euthymic. Calm. - Constitutional Vitals: Vital Signs - 12hr 02/21/19 02/21/19 02/21/19 22:52 22:56 23:03 Temperature Pulse Rate Pulse Rate [ 92 H Bilateral Throughout] Respiratory Rate Respiratory 19 Rate [Bilateral Throughout] Blood Pressure O2 Sat by Pulse 97 96 Oximetry 02/22/19 02/22/19 02/22/19 04:08 04:54 05:24 Temperature 98.6 F Pulse Rate 69 Pulse Rate [ Bilateral Throughout] Respiratory 20 18 18 Rate Respiratory Rate [Bilateral Throughout] Blood Pressure 165/73 O2 Sat by Pulse 93 Oximetry 02/22/19 02/22/19 08:00 09:16 Temperature Pulse Rate Pulse Rate [ 68 Bilateral Throughout] Respiratory Rate Respiratory 18 Rate [Bilateral Throughout] Blood Pressure O2 Sat by Pulse 96 Oximetry - Labs CBC & Chem 7: 02/22/19 05:13 02/22/19 05:13 Labs: Abnormal lab results 02/22/19 02/22/19 Range/Units 05:13 05:13 MCV 97 H (84-94) fl MCH 34 H (28-32) pg MCHC 35 H (32-34) % Plt Count 83 L (140-440) K/mm3 [place] % (Auto) 13.6 H (0.0-7.3) % [place] # 1.3 H (0.0-0.8) K/mm3 Chloride 108.5 H (98-107) mmol/L BUN 23 H (9-20) mg/dL Glucose 103 H (75-100) mg/dL Calcium 6.9 L (8.4-10.2) mg/dL Total Bilirubin 2.80 H (0.1-1.2) mg/dL Total Protein 6.0 L (6.3-8.2) g/dL Albumin 2.5 L (3.9-5) g/dL
[2019-02-22] MEDS: CARVEDILOL 6.25 MG TAB PO SCH ×2 (11:32→21:31)
[2019-02-22] MEDS: ENOXAPARIN 40 MG/0.4 ML INJ SUB-Q SCH (11:32)
[2019-02-22] MEDS: PANTOPRAZOLE 40 MG TAB PO SCH (11:33)
[2019-02-22] MEDS: ASPIRIN 81 MG TAB CHEW PO SCH (11:33)
--- NOTE | 2019-02-22 12:12 | Progress Note ---
Assessment and Plan Currently stable cardiac status. Echo reviewed - EF 55-60%, LA mildly dilated, mod (mean gradient 20mmHg, peak gradient 32mmHg, DONNA 1.5). Echo 08/2014 showed mild (mean gradient 13mmHg, DONNA 1.4). LHC done 01/28/2019 showed nonobstructive CAD (left main, LAD and circ <10% luminal irregularities, mid RCA 60% stenosis, distal RCA 80% stenosis. Follow GI and general surgery recs. The patient has been seen in conjunction with Dr. Pardo who agrees with the assessment and plan of care. - Patient Problems (1) Acute pancreatitis Current Visit: Yes Status: Acute (2) Cholelithiasis Current Visit: Yes Status: Acute (3) CAD (coronary artery disease) Current Visit: Yes Status: Chronic Qualifiers: Coronary Disease-Associated Artery/Lesion type: [place] artery [place] vs. transplanted heart: [place]q heart Associated angina: with other forms of angina Qualified Code(s): I25.118 - Atherosclerotic heart disease of [place]q coronary artery with other forms of angina pectoris (4) Stented coronary artery Current Visit: Yes Status: Chronic (5) Elevated troponin Current Visit: Yes Status: Acute (6) Hypertension Current Visit: Yes Status: Chronic Qualifiers: Hypertension type: essential hypertension Qualified Code(s): I10 - Essential (primary) hypertension (7) H/O ETOH abuse Current Visit: Yes Status: Chronic (8) Hepatitis C Current Visit: Yes Status: Chronic (9) VAHE (acute kidney injury) Current Visit: Yes Status: Acute (10) Liver disease Current Visit: Yes Status: Chronic (11) Thrombocytopenia Current Visit: Yes Status: Acute (12) Obesity Current Visit: Yes Status: Chronic (13) Aortic stenosis Current Visit: Yes Status: Chronic Subjective Date of service: 02/22/19 Principal diagnosis: pancreatitis, hyperbilirubinemia Interval history: pt resting in bed, no current cardiac complaints. in SR on tele. Objective Last Vital Signs Temp 98.6 F 02/22/19 04:08 Pulse 69 02/22/19 11:32 Resp 18 02/22/19 08:00 BP 165/73 02/22/19 11:32 Pulse Ox 96 02/22/19 09:16 - Physical Examination General: No Apparent Distress HEENT: Positive: PERRL, Normocephaly, Mucus Membranes Moist Neck: Positive: neck supple, trachea midline Cardiac: Positive: Reg Rate and Rhythm, S1/S2 Lungs: Positive: Decreased Breath Sounds Neuro: Positive: Grossly Intact Abdomen: Positive: Tender Skin: Negative: Rash Musculoskeletal: No Pain Extremities: Absent: edema - Labs and Meds Cardiac Enzymes 02/22/19 Range/Units 05:13 AST 39 (5-40) units/L CBC 02/22/19 Range/Units 05:13 WBC 9.3 (4.5-11.0) K/mm3 RBC 4.15 (3.65-5.03) M/mm3 Hgb 14.3 (11.8-15.2) gm/dl Hct 40.4 (35.5-45.6) % Plt Count 83 L (140-440) K/mm3 Lymph # 1.2 (1.2-5.4) K/mm3 [place] # 1.3 H (0.0-0.8) K/mm3 Eos # 0.2 (0.0-0.4) K/mm3 Baso # 0.0 (0.0-0.1) K/mm3 Comprehensive Metabolic Panel 02/22/19 Range/Units 05:13 Sodium 140 D (137-145) mmol/L Potassium 3.9 (3.6-5.0) mmol/L Chloride 108.5 H (98-107) mmol/L Carbon Dioxide 22 (22-30) mmol/L BUN 23 H (9-20) mg/dL Creatinine 1.1 D (0.8-1.5) mg/dL Glucose 103 H (75-100) mg/dL Calcium 6.9 L (8.4-10.2) mg/dL AST 39 (5-40) units/L ALT 27 (7-56) units/L Alkaline Phosphatase 88 (35-129) units/L Total Protein 6.0 L (6.3-8.2) g/dL Albumin 2.5 L (3.9-5) g/dL - Imaging and Cardiology EKG: report reviewed, image reviewed Echo: report reviewed (08/2014 showed EF 50-55%, LA mildly dilated, mild with mean gradient 13mmHg. ) Cardiac cath: report reviewed (OP LHC done at [place] on 01/28/2019 (indicated due to abnormal stress test) showed nonobstructive CAD (left main, LAD and circ <10% luminal irregularities, mid RCA 60% stenosis, distal RCA 80% stenosis. ) - EKG Sinus rhythms and dysrhythmias: sinus rhythm
--- NOTE | 2019-02-22 12:59 | Vascular Lab Report ---
RENAL ARTERIAL DOPPLER ULTRASOUND HISTORY: concern for renovascular disease COMPARISON: None. TECHNIQUE: Routine renal arterial doppler ultrasound performed using grayscale, color and pulsed dopp ler. FINDINGS: This was a technically difficult exam secondary to body habitus and extensive bowel gas Abdominal Aorta: No significant abnormality as visualized. The distal aorta is not seen. Suprarenal velocity is 65 cm/s. Right kidney: No significant abnormality. No hydronephrosis. Kidney measures 14 cm. Resistive index: 0.72 Right renal artery: Peak systolic velocity of 59 cm/s with [id number] ratio of less than 3.5 Left kidney: No significant abnormality. No hydronephrosis. Kidney measures 8.5 cm. Resistive index: 0.87 Left renal artery: Peak systolic velocity of 130 cm/s with [id number] ratio of less than 3.5 Additional findings: None. IMPRESSION: 1. No hemodynamically significant stenosis is identified. This was a technically limited exam seconda ry to body habitus and bowel gas. The left kidney appears atrophic relative to the right. Signer Name: Arsenio Barragan MD Signed: 02/22/2019 12:55 PM Workstation Name: [id number]
--- NOTE | 2019-02-22 15:04 | Progress Note ---
Assessment and Plan (1) Acute pancreatitis Current Visit: Yes Status: Acute Plan to address problem: 63 yo M with 1. cholelithiasis 2. acute pancreatitis 3. elevated bilirubin - likely hepatitis related Plan: 1. dc IVF if ok with nephro 2. advance to soft, cardiac/consistent carb diet 3. Cardiology on board - patient's cardiac status is stable 4. GI on board - no plans for ERCP. 5. Discussed plan with patient. Explained that there is no indication for ERCP at this time. His abdominal pain has resolved. Advised him to try and eat the soft diet this evening. I explained that due to his prior cardiac history, morbid obesity I would advise conservative management. However if he has abdominal pain with diet, we may need to proceed with cholecystectomy. He understands that he has multiple risk factors for general anesthesia and patient also noted that he would prefer to avoid surgery. 6. Patient very focused on swelling of his body. I explained to him that he had received a large amount of IVF over the last several days for acute kidney injury and pancreatitis and that swelling with improve. Will defer to hospitalist and nephrology for fluid management. Will follow up with patient in am. Thank you, please call with questions. Subjective Date of service: 02/22/19 Narrative: Pt seen and examined. c/o feeling very swollen in the legs, abdomen and gener ally his entire body. He states he does not have any abdominal pain. He is tolerating liquids but did not eat regular diet for lunch. He sent tray back because he does not have an appetite. He states he is afraid to drink liquids now due the swelling in his body. No f/c. No n/v Objective Vital Signs - 12hr 02/22/19 02/22/19 02/22/19 04:08 04:54 05:24 Temperature 98.6 F Pulse Rate 69 Pulse Rate [ Bilateral Throughout] Respiratory 20 18 18 Rate Respiratory Rate [Bilateral Throughout] Blood Pressure 165/73 O2 Sat by Pulse 93 Oximetry 02/22/19 02/22/19 02/22/19 08:00 09:16 11:32 Temperature Pulse Rate 69 Pulse Rate [ 68 Bilateral Throughout] Respiratory Rate Respiratory 18 Rate [Bilateral Throughout] Blood Pressure 165/73 O2 Sat by Pulse 96 Oximetry - General physical appearance Narrative Exam: Gen: AAOx3. NAD CV: S1, S2+ Resp: even and unlabored Abd: soft, NT, ND. Obese Ext: +edema. no cyanosis - Labs 02/22/19 05:13 02/22/19 05:13 Diabetes panel 02/22/19 Range/Units 05:13 Sodium 140 D (137-145) mmol/L Potassium 3.9 (3.6-5.0) mmol/L Chloride 108.5 H (98-107) mmol/L Carbon Dioxide 22 (22-30) mmol/L BUN 23 H (9-20) mg/dL Creatinine 1.1 D (0.8-1.5) mg/dL Glucose 103 H (75-100) mg/dL Calcium 6.9 L (8.4-10.2) mg/dL AST 39 (5-40) units/L ALT 27 (7-56) units/L Alkaline Phosphatase 88 (35-129) units/L Total Protein 6.0 L (6.3-8.2) g/dL Albumin 2.5 L (3.9-5) g/dL Calcium panel 02/22/19 Range/Units 05:13 Calcium 6.9 L (8.4-10.2) mg/dL Albumin 2.5 L (3.9-5) g/dL Pituitary panel 02/22/19 Range/Units 05:13 Sodium 140 D (137-145) mmol/L Potassium 3.9 (3.6-5.0) mmol/L Chloride 108.5 H (98-107) mmol/L Carbon Dioxide 22 (22-30) mmol/L BUN 23 H (9-20) mg/dL Creatinine 1.1 D (0.8-1.5) mg/dL Glucose 103 H (75-100) mg/dL Calcium 6.9 L (8.4-10.2) mg/dL Adrenal panel 02/22/19 Range/Units 05:13 Sodium 140 D (137-145) mmol/L Potassium 3.9 (3.6-5.0) mmol/L Chloride 108.5 H (98-107) mmol/L Carbon Dioxide 22 (22-30) mmol/L BUN 23 H (9-20) mg/dL Creatinine 1.1 D (0.8-1.5) mg/dL Glucose 103 H (75-100) mg/dL Calcium 6.9 L (8.4-10.2) mg/dL Total Bilirubin 2.80 H (0.1-1.2) mg/dL AST 39 (5-40) units/L ALT 27 (7-56) units/L Alkaline Phosphatase 88 (35-129) units/L Total Protein 6.0 L (6.3-8.2) g/dL Albumin 2.5 L (3.9-5) g/dL
--- NOTE | 2019-02-22 18:36 | Progress Note ---
Assessment and Plan Impression: * Acute kidney injury secondary to prerenal azotemia * Acute pancreatitis * Cholelithiasis * Hypertension * CAD, nonobstructive --s/p left heart catheterization Jan 2019 Plan: * Renal function improved - no indication for renal bx at this time * Continue antiHTN medications * GI and surgery recommendations reviewed * Dose medications for renal function * Avoid potential nephrotoxins * Diet per surgery Subjective Date of service: 02/22/19 Principal diagnosis: pancreatitis, hyperbilirubinemia Interval history: Patient seen this AM. He has no complaints. Objective - Vital Signs Vital signs: Vital Signs - 12hr 02/22/19 02/22/19 02/22/19 08:00 09:16 11:32 Temperature Pulse Rate 69 Pulse Rate [ 68 Bilateral Throughout] Respiratory Rate Respiratory 18 Rate [Bilateral Throughout] Blood Pressure 165/73 O2 Sat by Pulse 96 Oximetry 02/22/19 02/22/19 02/22/19 12:08 16:30 16:32 Temperature 98.3 F 98.2 F Pulse Rate 68 Pulse Rate [ Bilateral Throughout] Respiratory 20 20 Rate Respiratory Rate [Bilateral Throughout] Blood Pressure 190/75 158/61 O2 Sat by Pulse 94 95 Oximetry - General Appearance General appearance: well-developed, well-nourished EENT: ATNC Respiratory: Present: Clear to Ascultation Cardiology: regular, S1S2 Gastrointestinal: obese Integumentary: no rash, warm and dry Musculoskeletal: other (+ edema) Psychiatric: cooperative - Lab 02/22/19 05:13 02/22/19 05:13 Most recent lab results Calcium 6.9 mg/dL (8.4-10.2) L 02/22/19 05:13 Magnesium 1.90 mg/dL (1.7-2.3) 02/22/19 05:13 Urine Creatinine 103.9 mg/dL (0.1-20.0) H 02/21/19 09:27 Urine Sodium 10 mmol/L 02/21/19 09:27 Medications & Allergies - Medications Allergies/Adverse Reactions: Allergies No Known Allergies Allergy (Verified 07/24/14 10:24) Home Medications: Home Medications Medication Instructions Recorded Confirmed Last Taken Type Atorvastatin [Lipitor Tab] 80 mg PO QHS 02/18/19 02/18/19 02/17/19 History Carvedilol [Coreg] 12.5 mg PO BID 02/18/19 02/18/19 02/17/19 History Lisinopril [Zestril] 20 mg PO QDAY 02/18/19 02/18/19 02/17/19 History Active Medications: Generic Name Dose Route Start Last Admin Trade Name Gersonq PRN Reason Stop Dose Admin Acetaminophen 650 mg 02/18/19 19:15 Tylenol PO Q4H PRN Pain MILD(1-3)/Fever >100.5/NORIEGA Acetaminophen/Hydrocodone Bitart 1 each 02/22/19 12:09 [place] 5/325 PO Q4H PRN Pain, Moderate (4-6) Albuterol/Ipratropium 1 ampul 02/21/19 23:00 02/22/19 13:55 Duoneb *Not For Prn Use* IH Not Given Q6HRT JONATHAN Aspirin 81 mg 02/20/19 10:00 02/22/19 11:33 Baby Aspirin PO 81 mg QDAY JONATHAN Administration Carvedilol 6.25 mg 02/19/19 22:00 02/22/19 11:32 Coreg PO 6.25 mg BID JONATHAN Administration Diphenhydramine HCl 25 mg 02/19/19 12:05 02/20/19 12:23 Benadryl IV 25 mg Q6H PRN Administration Itching Enoxaparin Sodium 40 mg 02/22/19 10:00 02/22/19 11:32 Enoxaparin SUB-Q 40 mg QDAY@1000 JONATHAN Administration Hydromorphone HCl 2 mg 02/19/19 09:06 02/22/19 11:54 Dilaudid IV 2 mg Q4H PRN Administration Pain , Severe (7-10) Ondansetron HCl 4 mg 02/18/19 19:15 02/22/19 04:54 Zofran IV 4 mg Q3H PRN Administration Nausea And Vomiting Pantoprazole Sodium 40 mg 02/19/19 10:00 02/22/19 11:33 Protonix PO 40 mg QDAY JONATHAN Administration Sodium Chloride 10 ml 02/18/19 22:00 02/22/19 11:33 Sodium Chloride Flush Syringe 10 Ml IV 10 ml BID JONATHAN Administration Sodium Chloride 10 ml 02/18/19 19:15 Sodium Chloride Flush Syringe 10 Ml IV PRN PRN LINE FLUSH
[2019-02-22] MEDS: HYDROcodone/ACETAMINOPHEN 5-325 MG TAB PO PRN ×2 (19:45→23:35)
[2019-02-23] MEDS: HYDROmorphone 2 MG/1 ML INJ IV PRN ×3 (02:55→22:34)
[2019-02-23] MEDS: IPRATROPIUM/ALBUTEROL SULFATE 3 ML AMPUL.NEB IH SCH ×4 (06:32→21:00)
[2019-02-23 06:35] LABS: Basophils % (Auto) 0.6 % (0.0-1.8); Eosinophils # (Auto) 0.3 K/mm3 (0.0-0.4); Eosinophils % (Auto) 4.3 % (0.0-4.3); Hematocrit 43.3 % (35.5-45.6); Hemoglobin 15.1 gm/dl (11.8-15.2); Lymphocytes # (Auto) 1.4 K/mm3 (1.2-5.4); Lymphocytes % (Auto) 18.9 % (13.4-35.0); Mean Corpuscular HGB Conc 35 % (32-34); Mean Corpuscular Volume 98 fl (84-94); Monocytes # (Auto) 1.2 K/mm3 (0.0-0.8); Monocytes % (Auto) 15.6 % (0.0-7.3); Platelet Count 108 K/mm3 (140-440); Red Blood Count 4.44 M/mm3 (3.65-5.03); Red Cell Distribution Width 14.4 % (13.2-15.2)
[2019-02-23 07:04] LABS: BUN/Creatinine Ratio 16; Blood Urea Nitrogen 14 mg/dL (9-20); Calcium 7.3 mg/dL (8.4-10.2); Hemolysis Index 5
[2019-02-23 07:39] LABS: Alanine Aminotransferase 29 units/L (7-56); Albumin 2.6 g/dL (3.9-5)
--- NOTE | 2019-02-23 08:29 | Progress Note ---
Assessment and Plan Impression: * Acute kidney injury secondary to prerenal azotemia * Acute pancreatitis * Cholelithiasis * Hypertension * CAD, nonobstructive --s/p left heart catheterization Jan 2019 Plan: * Renal function improved - now wnl * Continue antiHTN medications * GI and surgery recommendations reviewed; case discussed with Dr. Brunson today. * Dose medications for renal function * Avoid potential nephrotoxins * Diet per surgery Subjective Date of service: 02/23/19 Principal diagnosis: pancreatitis, hyperbilirubinemia Interval history: Patient reports abdominal pain today. Denies nausea/vomiting. Feels bloated from IVF. Denies SOB Objective - Vital Signs Vital signs: Vital Signs - 12hr 02/22/19 02/22/19 02/22/19 21:31 22:00 23:06 Temperature 98.2 F Pulse Rate 68 65 Respiratory 20 Rate Blood Pressure 141/63 190/76 Blood Pressure [Right] O2 Sat by Pulse 95 93 Oximetry 02/23/19 02/23/19 02/23/19 01:04 02:55 05:26 Temperature 98.1 F Pulse Rate 60 61 Respiratory 18 18 Rate Blood Pressure 161/67 Blood Pressure 181/76 [Right] O2 Sat by Pulse 92 Oximetry 02/23/19 07:58 Temperature Pulse Rate Respiratory Rate Blood Pressure Blood Pressure [Right] O2 Sat by Pulse 96 Oximetry - General Appearance General appearance: well-developed, well-nourished EENT: ATNC Respiratory: Present: Decreased Breath Sounds Cardiology: regular, S1S2 Gastrointestinal: tenderness, obese Integumentary: no rash, warm and dry Neurologic: no focal deficit, alert and oriented x3 Musculoskeletal: other (Trace-1+ LE edema) Psychiatric: cooperative - Lab 02/23/19 06:08 02/23/19 06:08 Most recent lab results Calcium 7.3 mg/dL (8.4-10.2) L 02/23/19 06:08 Magnesium 1.90 mg/dL (1.7-2.3) 02/22/19 05:13 Urine Creatinine 103.9 mg/dL (0.1-20.0) H 02/21/19 09:27 Urine Sodium 10 mmol/L 02/21/19 09:27 Medications & Allergies - Medications Allergies/Adverse Reactions: Allergies No Known Allergies Allergy (Verified 07/24/14 10:24) Home Medications: Home Medications Medication Instructions Recorded Confirmed Last Taken Type Atorvastatin [Lipitor] 80 mg PO QHS 02/18/19 02/18/19 02/17/19 History Lisinopril [Zestril] 20 mg PO QDAY 02/18/19 02/18/19 02/17/19 History Carvedilol [Coreg] 6.25 mg PO BID #60 tablet 02/23/19 Unknown Rx HYDROcodone/APAP 5-325 [[place] 1 each PO Q4H PRN #14 tablet 02/23/19 Unknown Rx 5-325 mg TAB] Active Medications: Generic Name Dose Route Start Last Admin Trade Name Freq PRN Reason Stop Dose Admin Acetaminophen 650 mg 02/18/19 19:15 Tylenol PO Q4H PRN Pain MILD(1-3)/Fever >100.5/NORIEGA Acetaminophen/Hydrocodone Bitart 1 each 02/22/19 12:09 02/22/19 23:35 [place] 5/325 PO 1 each Q4H PRN Administration Pain, Moderate (4-6) Albuterol/Ipratropium 1 ampul 02/21/19 23:00 02/23/19 07:57 Duoneb *Not For Prn Use* IH Not Given Q6HRT [facility] Aspirin 81 mg 02/20/19 10:00 02/22/19 11:33 Baby Aspirin PO 81 mg QDAY JONATHAN Administration Carvedilol 6.25 mg 02/19/19 22:00 02/22/19 21:31 Coreg PO 6.25 mg BID JONATHAN Administration Diphenhydramine HCl 25 mg 02/19/19 12:05 02/20/19 12:23 Benadryl IV 25 mg Q6H PRN Administration Itching Docusate Sodium 100 mg 02/23/19 10:00 Colace PO BID JONATHAN Enoxaparin Sodium 40 mg 02/22/19 10:00 02/22/19 11:32 Enoxaparin SUB-Q 40 mg QDAY@1000 JONATHAN Administration Hydromorphone HCl 2 mg 02/19/19 09:06 02/23/19 02:55 Dilaudid IV 2 mg Q4H PRN Administration Pain , Severe (7-10) Ondansetron HCl 4 mg 02/18/19 19:15 02/22/19 04:54 Zofran IV 4 mg Q3H PRN Administration Nausea And Vomiting Pantoprazole Sodium 40 mg 02/19/19 10:00 02/22/19 11:33 Protonix PO 40 mg QDAY JONATHAN Administration Sodium Chloride 10 ml 02/18/19 22:00 02/22/19 23:39 Sodium Chloride Flush Syringe 10 Ml IV 10 ml BID JONATHAN Administration Sodium Chloride 10 ml 02/18/19 19:15 Sodium Chloride Flush Syringe 10 Ml IV PRN PRN LINE FLUSH
--- NOTE | 2019-02-23 08:35 | Discharge Summary ---
Providers - Providers Date of Admission: 02/18/19 18:35 Attending physician: NICOLAS WARNER MD 02/18/19 19:15 Consult to Physician [CONS] Routine Comment: Consulting Provider: JACINTO ARENAS Physician Instructions: Reason For Exam: acute pancreatitis 02/19/19 07:36 Consult to Physician [CONS] Routine Comment: Consulting Provider: GILMER MAGANA Physician Instructions: Reason For Exam: Acute pancreatitis 02/19/19 09:34 Consult to Physician [CONS] Routine Comment: Consulting Provider: KEVIN CHUN Physician Instructions: Reason For Exam: elevated tropinin 02/19/19 16:31 Consult to Physician [CONS] Routine Comment: Consulting Provider: JERMAINE PRINCE Physician Instructions: Reason For Exam: VAHE [facility] Condition: Stable Hospital course: Acute pancreatitis Lipase down to 40 from 1104 Tolerating clear liquid. Advance to Decrease Dilaudid to 1 mg iv Q 3hrs on IV fluids. Advance to full liquid GI Physician following surg following Cholelithiasis surg following Discussed with Dr. Sykes who is was coverign for Dr. Davidson over the weekend. surgeons agreed to discharge the patient and for him to follow up with them on out patient bases for an elective surgery b/c of multiple talat factords that include PCI and morbid obesity Hyperbilirubinemia possible Cholestasis No plan for ERCP per GI rcommenceded intraoperative cholangio VAHE Creatinine improving Nephrology consulted Elevated troponin Cardiolgy consulted, evaluated Hyperkalemia corrected Chest pain Secondary to reflux and pancreatitis Serial troponins Pain control Reflux esophagitis IV Protonix for now Hypertension Catapres patch TTS 1 every weekly Coronary artery disease Cont Aspirin cardiology following Hyperlipidemia Hold statins Transaminitis has hep C Hepatitis C infection DVT prophylaxis Lovenox 30 mg subcutaneous daily and GI prophylaxis full code status Disposition: Advanced to regular diet. Discharge if tolerated. Disposition: -01 TO HOME OR SELFCARE Time spent for discharge: 33 mins Core Measure Documentation - Palliative Care Palliative Care/ Comfort Measures: Not Applicable - Core Measures Any of the following diagnoses?: none Exam - Constitutional Vitals: Temp Pulse Resp BP Pulse Ox 98.1 F 61 18 161/67 96 02/23/19 05:26 02/23/19 05:26 02/23/19 05:26 02/23/19 05:26 02/23/19 07:58 General appearance: Present: no acute distress, well-nourished - EENT Eyes: Present: PERRL ENT: hearing intact, clear oral mucosa - Neck Neck: Present: supple, normal ROM - Respiratory Respiratory effort: normal Respiratory: bilateral: CTA - Cardiovascular Heart Sounds: Present: S1 & S2. Absent: rub, click - Extremities Extremities: pulses symmetrical, No edema Peripheral Pulses: within normal limits - Abdominal General gastrointestinal: Present: soft, non-tender, non-distended, normal bowel sounds Male genitourinary: Present: normal - Integumentary Integumentary: Present: clear, warm, dry - Musculoskeletal Musculoskeletal: gait normal, strength equal bilaterally - Psychiatric Psychiatric: appropriate mood/affect, intact judgment & insight - Neurologic Neurologic: CNII-XII intact, moves all extremities Plan Follow up with: BE RENTERIA MD [Primary Care Provider] - 3-5 Days Prescriptions: Carvedilol [Coreg] 6.25 mg PO BID #60 tablet HYDROcodone/APAP 5-325 [[place] 5-325 mg TAB] 1 each PO Q4H PRN #14 tablet PRN Reason: Pain, Moderate (4-6)
--- NOTE | 2019-02-23 10:27 | Progress Note ---
Assessment and Plan Currently stable cardiac status. Pt for cholecystectomy later this week per general surgery. Pt is at moderate cardiovascular risk for contemplated surgery. There are no immediate cardiac contraindications to proceeding with contemplated surgery at this time. Will follow. The patient has been seen in conjunction with Dr. Pardo who agrees with the assessment and plan of care. - Patient Problems (1) Acute pancreatitis Current Visit: Yes Status: Acute (2) Cholelithiasis Current Visit: Yes Status: Acute (3) CAD (coronary artery disease) Current Visit: Yes Status: Chronic Qualifiers: Coronary Disease-Associated Artery/Lesion type: [place] artery [place] vs. transplanted heart: [place] heart Associated angina: with other forms of angina Qualified Code(s): I25.118 - Atherosclerotic heart disease of [place] coronary artery with other forms of angina pectoris (4) Stented coronary artery Current Visit: Yes Status: Chronic (5) Elevated troponin Current Visit: Yes Status: Acute (6) Hypertension Current Visit: Yes Status: Chronic Qualifiers: Hypertension type: essential hypertension Qualified Code(s): I10 - Essential (primary) hypertension (7) H/O ETOH abuse Current Visit: Yes Status: Chronic (8) Hepatitis C Current Visit: Yes Status: Chronic (9) VAHE (acute kidney injury) Current Visit: Yes Status: Acute (10) Liver disease Current Visit: Yes Status: Chronic (11) Thrombocytopenia Current Visit: Yes Status: Acute (12) Obesity Current Visit: Yes Status: Chronic (13) Aortic stenosis Current Visit: Yes Status: Chronic Subjective Date of service: 02/23/19 Principal diagnosis: pancreatitis, hyperbilirubinemia Interval history: pt resting in bed, no current cardiac complaints. in SR on tele. Objective Last Vital Signs Temp 98.1 F 02/23/19 05:26 Pulse 61 02/23/19 05:26 Resp 18 02/23/19 05:26 BP 161/67 02/23/19 05:26 Pulse Ox 96 02/23/19 07:58 - Physical Examination General: No Apparent Distress HEENT: Positive: PERRL, Normocephaly, Mucus Membranes Moist Neck: Positive: neck supple, trachea midline Cardiac: Positive: Reg Rate and Rhythm, S1/S2 Lungs: Positive: Decreased Breath Sounds Neuro: Positive: Grossly Intact Abdomen: Positive: Tender Skin: Negative: Rash Musculoskeletal: No Pain Extremities: Absent: edema - Labs and Meds Cardiac Enzymes 02/23/19 Range/Units 06:08 AST 42 H (5-40) units/L CBC 02/23/19 Range/Units 06:08 WBC 7.6 (4.5-11.0) K/mm3 RBC 4.44 (3.65-5.03) M/mm3 Hgb 15.1 (11.8-15.2) gm/dl Hct 43.3 (35.5-45.6) % Plt Count 108 L (140-440) K/mm3 Lymph # 1.4 (1.2-5.4) K/mm3 [place] # 1.2 H (0.0-0.8) K/mm3 Eos # 0.3 (0.0-0.4) K/mm3 Baso # 0.0 (0.0-0.1) K/mm3 Comprehensive Metabolic Panel 02/23/19 Range/Units 06:08 Sodium 142 (137-145) mmol/L Potassium 3.8 (3.6-5.0) mmol/L Chloride 107.5 H (98-107) mmol/L Carbon Dioxide 23 (22-30) mmol/L BUN 14 (9-20) mg/dL Creatinine 0.9 (0.8-1.5) mg/dL Glucose 124 H (75-100) mg/dL Calcium 7.3 L (8.4-10.2) mg/dL AST 42 H (5-40) units/L ALT 29 (7-56) units/L Alkaline Phosphatase 99 (35-129) units/L Total Protein 6.5 (6.3-8.2) g/dL Albumin 2.6 L (3.9-5) g/dL - Imaging and Cardiology EKG: report reviewed, image reviewed Echo: report reviewed (08/2014 showed EF 50-55%, LA mildly dilated, mild with mean gradient 13mmHg. ) Cardiac cath: report reviewed (OP LHC done at [facility] on 01/28/2019 (indicated due to abnormal stress test) showed nonobstructive CAD (left main, LAD and circ <10% luminal irregularities, mid RCA 60% stenosis, distal RCA 80% stenosis. ) - EKG Sinus rhythms and dysrhythmias: sinus rhythm
--- NOTE | 2019-02-23 10:38 | Progress Note ---
Assessment and Plan (1) Acute pancreatitis Current Visit: Yes Status: Acute Plan to address problem: 63 yo M with 1. cholelithiasis 2. acute pancreatitis 2/2 cholelithiasis 3. elevated bilirubin - likely hepatitis related Plan: 1. Pt with RUQ/epigastric pain with soft diet. Pain very likely related to gallstones. I discussed options with him and his family at the bedside. This included conservative management with actigall vs surgical intervention. I explained the risks, benefits or each option. All questions were answered. Patient ready to proceed with cholecystectomy. 2. Cardiology on board - patient's cardiac status is stable 3. GI on board - no plans for ERCP. 4. VAHE resolved 5. Will check with OR regarding next available time for cholecystectomy. Notified Dr. Gifford. Thank you, please call with questions. Subjective Date of service: 02/23/19 Narrative: Pt seen and examined, c/o epigastric and RUQ abdominal pain after eating soft diet. No n/v. Pain is sharp and intermittent but occurred after eating. No f/c. Objective Vital Signs - 12hr 02/22/19 02/23/19 02/23/19 23:06 01:04 02:55 Temperature 98.2 F Pulse Rate 65 60 Respiratory 20 18 Rate Blood Pressure 190/76 Blood Pressure 181/76 [Right] O2 Sat by Pulse 93 Oximetry 02/23/19 02/23/19 05:26 07:58 Temperature 98.1 F Pulse Rate 61 Respiratory 18 Rate Blood Pressure 161/67 Blood Pressure [Right] O2 Sat by Pulse 92 96 Oximetry - General physical appearance Narrative Exam: Gen: AAOx3. NAD CV: S1, S2+ Resp: even and unlabored Abd: soft, ND, mild epigastric TTP. no r/r/g. morbidly obese Ext: no c/c/e - Labs 02/23/19 06:08 02/23/19 06:08 Diabetes panel 02/23/19 Range/Units 06:08 Sodium 142 (137-145) mmol/L Potassium 3.8 (3.6-5.0) mmol/L Chloride 107.5 H (98-107) mmol/L Carbon Dioxide 23 (22-30) mmol/L BUN 14 (9-20) mg/dL Creatinine 0.9 (0.8-1.5) mg/dL Glucose 124 H (75-100) mg/dL Calcium 7.3 L (8.4-10.2) mg/dL AST 42 H (5-40) units/L ALT 29 (7-56) units/L Alkaline Phosphatase 99 (35-129) units/L Total Protein 6.5 (6.3-8.2) g/dL Albumin 2.6 L (3.9-5) g/dL Calcium panel 02/23/19 Range/Units 06:08 Calcium 7.3 L (8.4-10.2) mg/dL Albumin 2.6 L (3.9-5) g/dL Pituitary panel 02/23/19 Range/Units 06:08 Sodium 142 (137-145) mmol/L Potassium 3.8 (3.6-5.0) mmol/L Chloride 107.5 H (98-107) mmol/L Carbon Dioxide 23 (22-30) mmol/L BUN 14 (9-20) mg/dL Creatinine 0.9 (0.8-1.5) mg/dL Glucose 124 H (75-100) mg/dL Calcium 7.3 L (8.4-10.2) mg/dL Adrenal panel 02/23/19 Range/Units 06:08 Sodium 142 (137-145) mmol/L Potassium 3.8 (3.6-5.0) mmol/L Chloride 107.5 H (98-107) mmol/L Carbon Dioxide 23 (22-30) mmol/L BUN 14 (9-20) mg/dL Creatinine 0.9 (0.8-1.5) mg/dL Glucose 124 H (75-100) mg/dL Calcium 7.3 L (8.4-10.2) mg/dL Total Bilirubin 2.30 H (0.1-1.2) mg/dL AST 42 H (5-40) units/L ALT 29 (7-56) units/L Alkaline Phosphatase 99 (35-129) units/L Total Protein 6.5 (6.3-8.2) g/dL Albumin 2.6 L (3.9-5) g/dL
--- NOTE | 2019-02-23 10:42 | Progress Note ---
Assessment and Plan Assessment and plan: 63-year-old man who presented to the hospital with abdominal pain Diagnosis Acute pancreatitis Cholelithiasis Cholecystitis VAHE Elevated troponin Hyperkalemia Chest pain, due to esophagitis and vomiting Reflux esophagitis Hypertension CAD Hepatitis C Plan Patient was treated with supportive care, IV fluids pain meds and antiemetics Patient has improved, electrolytes and kidney function has improved Patient was seen by cardiology, chest pain was due to esophagitis and vomiting, noncardiac in origin Patient continues to have right upper quadrant pain related to food. Plan for cholecystectomy this week. Optimize blood pressure medications K normal for days, dc tele monitor DVT prophylaxis with [place] Hospitalist Physical - Physical exam Narrative exam: General.: Mild distress HEENT: Moist mucous membranes, extraocular muscles intact, no lymphadenopathy Neck: supple Cardiac: S1-S2 heard Lungs: clear to auscultation bilaterally Abdomen: soft , lower abdominal tenderness, nondistended, bowel sounds positive Extremities: no edema clubbing or cyanosis Skin: no rash or lesions Neurologic: no gross focal deficits Psych: calm, and cooperative - Constitutional Vitals: Temp Pulse Resp BP Pulse Ox 98.1 F 61 18 161/67 96 02/23/19 05:26 02/23/19 05:26 02/23/19 05:26 02/23/19 05:26 02/23/19 07:58 General appearance: Present: obese Results - Labs CBC & Chem 7: 02/23/19 06:08 02/23/19 06:08 Labs: Laboratory Last Values WBC 7.6 K/mm3 (4.5-11.0) 02/23/19 06:08 RBC 4.44 M/mm3 (3.65-5.03) 02/23/19 06:08 Hgb 15.1 gm/dl (11.8-15.2) 02/23/19 06:08 Hct 43.3 % (35.5-45.6) 02/23/19 06:08 MCV 98 fl (84-94) H 02/23/19 06:08 MCH 34 pg (28-32) H 02/23/19 06:08 MCHC 35 % (32-34) H 02/23/19 06:08 RDW 14.4 % (13.2-15.2) 02/23/19 06:08 Plt Count 108 K/mm3 (140-440) L 02/23/19 06:08 Lymph % (Auto) 18.9 % (13.4-35.0) 02/23/19 06:08 [place] % (Auto) 15.6 % (0.0-7.3) H 02/23/19 06:08 Eos % (Auto) 4.3 % (0.0-4.3) 02/23/19 06:08 Baso % (Auto) 0.6 % (0.0-1.8) 02/23/19 06:08 Lymph # 1.4 K/mm3 (1.2-5.4) 02/23/19 06:08 [place] # 1.2 K/mm3 (0.0-0.8) H 02/23/19 06:08 Eos # 0.3 K/mm3 (0.0-0.4) 02/23/19 06:08 Baso # 0.0 K/mm3 (0.0-0.1) 02/23/19 06:08 Seg Neutrophils % 60.6 % (40.0-70.0) 02/23/19 06:08 Seg Neutrophils # 4.6 K/mm3 (1.8-7.7) 02/23/19 06:08 PT 13.7 Sec. (12.2-14.9) 02/18/19 15:08 INR 1.06 (0.87-1.13) 02/18/19 15:08 APTT 32.1 Sec. (24.2-36.6) 02/18/19 15:08 Sodium 142 mmol/L (137-145) 02/23/19 06:08 Potassium 3.8 mmol/L (3.6-5.0) 02/23/19 06:08 Chloride 107.5 mmol/L (98-107) H 02/23/19 06:08 Carbon Dioxide 23 mmol/L (22-30) 02/23/19 06:08 Anion Gap 15 mmol/L 02/23/19 06:08 BUN 14 mg/dL (9-20) 02/23/19 06:08 Creatinine 0.9 mg/dL (0.8-1.5) 02/23/19 06:08 Estimated GFR > 60 ml/min 02/23/19 06:08 BUN/Creatinine Ratio 16 % 02/23/19 06:08 Glucose 124 mg/dL (75-100) H 02/23/19 06:08 Hemoglobin A1c 5.3 % (4-6) 02/18/19 20:31 Calcium 7.3 mg/dL (8.4-10.2) L 02/23/19 06:08 Magnesium 1.90 mg/dL (1.7-2.3) 02/22/19 05:13 Total Bilirubin 2.30 mg/dL (0.1-1.2) H 02/23/19 06:08 AST 42 units/L (5-40) H 02/23/19 06:08 ALT 29 units/L (7-56) 02/23/19 06:08 Alkaline Phosphatase 99 units/L (35-129) 02/23/19 06:08 Troponin T 0.076 ng/mL (0.00-0.029) H D 02/18/19 20:33 Total Protein 6.5 g/dL (6.3-8.2) 02/23/19 06:08 Albumin 2.6 g/dL (3.9-5) L 02/23/19 06:08 Albumin/Globulin Ratio 0.7 % 02/23/19 06:08 Triglycerides 92 mg/dL (2-149) 02/18/19 18:10 Cholesterol 82 mg/dL (50-199) 02/18/19 18:10 LDL Cholesterol Direct 54 mg/dL (50-130) 02/18/19 18:10 HDL Cholesterol 25 mg/dL (40-59) L 02/18/19 18:10 Cholesterol/HDL Ratio 3.28 % 02/18/19 18:10 Lipase 40 units/L (13-60) 02/22/19 05:13 Urine Color Ally (Yellow) 02/21/19 09:30 Urine Turbidity Clear (Clear) 02/21/19 09:30 Urine pH 5.0 (5.0-7.0) 02/21/19 09:30 Ur Specific [place] 1.012 (1.003-1.030) 02/21/19 09:30 Urine Protein <15 mg/dl mg/dL (Negative) 02/21/19 09:30 Urine Glucose (UA) Neg mg/dL (Negative) 02/21/19 09:30 Urine Ketones Neg mg/dL (Negative) 02/21/19 09:30 Urine Blood Mod (Negative) 02/21/19 09:30 Urine Nitrite Neg (Negative) 02/21/19 09:30 Urine Bilirubin Neg (Negative) 02/21/19 09:30 Urine Urobilinogen 4.0 mg/dL (<2.0) 02/21/19 09:30 Ur Leukocyte Esterase Neg (Negative) 02/21/19 09:30 Urine WBC (Auto) 5.0 /HPF (0.0-6.0) 02/21/19 09:30 Urine RBC (Auto) 2.0 /HPF (0.0-6.0) 02/21/19 09:30 U Epithel Cells (Auto) < 1.0 /HPF (0-13.0) 02/21/19 09:30 Urine Creatinine 103.9 mg/dL (0.1-20.0) H 02/21/19 09:27 Urine Sodium 10 mmol/L 02/21/19 09:27 Hepatitis A IgM Ab Non-reactive (NonReactive) 02/18/19 20:32 Hep Bs Antigen Non-reactive (Negative) 02/18/19 20:32 Hep B Core IgM Ab Non-reactive (NonReactive) 02/18/19 20:32 Hepatitis C Antibody Reactive (NonReactive) A 02/18/19 20:32 Active Medications - Current Medications Current Medications: Generic Name Dose Route Start Last Admin Trade Name Freq PRN Reason Stop Dose Admin Acetaminophen 650 mg 02/18/19 19:15 Tylenol PO Q4H PRN Pain MILD(1-3)/Fever >100.5/NORIEGA Acetaminophen/Hydrocodone Bitart 1 each 02/22/19 12:09 02/22/19 23:35 [place] 5/325 PO 1 each Q4H PRN Administration Pain, Moderate (4-6) Albuterol/Ipratropium 1 ampul 02/21/19 23:00 02/23/19 07:57 Duoneb *Not For Prn Use* IH Not Given Q6HRT JONATHAN Aspirin 81 mg 02/20/19 10:00 02/22/19 11:33 Baby Aspirin PO 81 mg QDAY JONATHAN Administration Carvedilol 6.25 mg 02/19/19 22:00 02/22/19 21:31 Coreg PO 6.25 mg BID JONATHAN Administration Diphenhydramine HCl 25 mg 02/19/19 12:05 02/20/19 12:23 Benadryl IV 25 mg Q6H PRN Administration Itching Docusate Sodium 100 mg 02/23/19 10:00 Colace PO BID JONATHAN Enoxaparin Sodium 40 mg 02/22/19 10:00 02/22/19 11:32 Enoxaparin SUB-Q 40 mg QDAY@1000 JONATHAN Administration Hydromorphone HCl 2 mg 02/19/19 09:06 02/23/19 02:55 Dilaudid IV 2 mg Q4H PRN Administration Pain , Severe (7-10) Ondansetron HCl 4 mg 02/18/19 19:15 02/22/19 04:54 Zofran IV 4 mg Q3H PRN Administration Nausea And Vomiting Pantoprazole Sodium 40 mg 02/19/19 10:00 02/22/19 11:33 Protonix PO 40 mg QDAY JONATHAN Administration Sodium Chloride 10 ml 02/18/19 22:00 02/22/19 23:39 Sodium Chloride Flush Syringe 10 Ml IV 10 ml BID JONATHAN Administration Sodium Chloride 10 ml 02/18/19 19:15 Sodium Chloride Flush Syringe 10 Ml IV PRN PRN LINE FLUSH
[2019-02-23] MEDS: DOCUSATE SODIUM 100 MG CAP PO SCH ×2 (10:47→22:28)
[2019-02-23] MEDS: ASPIRIN 81 MG TAB CHEW PO SCH (10:47)
[2019-02-23] MEDS: HYDROcodone/ACETAMINOPHEN 5-325 MG TAB PO PRN (10:47)
[2019-02-23] MEDS: CARVEDILOL 6.25 MG TAB PO SCH ×2 (10:48→22:29)
[2019-02-23] MEDS: PANTOPRAZOLE 40 MG TAB PO SCH (10:59)
[2019-02-23] MEDS: ENOXAPARIN 40 MG/0.4 ML INJ SUB-Q SCH (10:59)
[2019-02-23] MEDS: LISINOPRIL 20 MG TAB PO SCH (17:29)
[2019-02-23] MEDS ORDERED: hydrALAZINE 20 MG/1 ML INJ IV ONE (17:30)
[2019-02-23] MEDS: ONDANSETRON 4 MG/2 ML INJ IV PRN (18:27)
[2019-02-24] MEDS: IPRATROPIUM/ALBUTEROL SULFATE 3 ML AMPUL.NEB IH SCH ×4 (02:47→22:30)
[2019-02-24] MEDS: HYDROmorphone 2 MG/1 ML INJ IV PRN ×3 (03:41→23:31)
--- NOTE | 2019-02-24 07:56 | Progress Note ---
Assessment and Plan Impression: * Acute kidney injury secondary to prerenal azotemia * Acute pancreatitis * Cholelithiasis * Hypertension * CAD, nonobstructive --s/p left heart catheterization Jan 2019 Plan: * No available labs for review * Continue antiHTN medications - ACEi resumed yesterday * Note plans for cholecystectomy * Dose medications for renal function * Avoid potential nephrotoxins * Diet per surgery Subjective Date of service: 02/24/19 Principal diagnosis: pancreatitis, hyperbilirubinemia Interval history: Patient not in room at time of visit. Objective - Exam Narrative Exam: Deferred - off the floor at time of visit. - Vital Signs Vital signs: Vital Signs - 12hr 02/23/19 02/23/19 02/23/19 21:00 22:29 22:46 Temperature 98.0 F Pulse Rate 72 78 Pulse Rate [ 75 Bilateral Throughout] Respiratory 20 Rate Respiratory 18 Rate [Bilateral Throughout] Blood Pressure 211/89 164/73 O2 Sat by Pulse 90 Oximetry 02/24/19 02/24/19 03:41 05:47 Temperature 98.3 F Pulse Rate 64 Pulse Rate [ Bilateral Throughout] Respiratory 18 20 Rate Respiratory Rate [Bilateral Throughout] Blood Pressure 154/69 O2 Sat by Pulse 92 Oximetry - Lab 02/23/19 06:08 02/23/19 06:08 Most recent lab results Calcium 7.3 mg/dL (8.4-10.2) L 02/23/19 06:08 Magnesium 1.90 mg/dL (1.7-2.3) 02/22/19 05:13 Urine Creatinine 103.9 mg/dL (0.1-20.0) H 02/21/19 09:27 Urine Sodium 10 mmol/L 02/21/19 09:27 Medications & Allergies - Medications Allergies/Adverse Reactions: Allergies No Known Allergies Allergy (Verified 07/24/14 10:24) Home Medications: Home Medications Medication Instructions Recorded Confirmed Last Taken Type Atorvastatin [Lipitor] 80 mg PO QHS 02/18/19 02/18/19 02/17/19 History Lisinopril [Zestril] 20 mg PO QDAY 02/18/19 02/18/19 02/17/19 History Carvedilol [Coreg] 6.25 mg PO BID #60 tablet 02/23/19 Unknown Rx HYDROcodone/APAP 5-325 [[place] 1 each PO Q4H PRN #14 tablet 02/23/19 Unknown Rx 5-325 mg TAB] Active Medications: Generic Name Dose Route Start Last Admin Trade Name Freq PRN Reason Stop Dose Admin Acetaminophen 650 mg 02/18/19 19:15 Tylenol PO Q4H PRN Pain MILD(1-3)/Fever >100.5/[place] Acetaminophen/Hydrocodone Bitart 1 each 02/22/19 12:09 02/23/19 10:47 [place] 5/325 PO 1 each Q4H PRN Administration Pain, Moderate (4-6) Albuterol/Ipratropium 1 ampul 02/21/19 23:00 02/24/19 02:47 Duoneb *Not For Prn Use* IH Not Given Q6HRT JONATHAN Aspirin 81 mg 02/20/19 10:00 02/23/19 10:47 Baby Aspirin PO 81 mg QDAY JONATHAN Administration Carvedilol 6.25 mg 02/19/19 22:00 02/23/19 22:29 Coreg PO 6.25 mg BID JONATHAN Administration Diphenhydramine HCl 25 mg 02/19/19 12:05 02/20/19 12:23 Benadryl IV 25 mg Q6H PRN Administration Itching Docusate Sodium 100 mg 02/23/19 10:00 02/23/19 22:28 Colace PO 100 mg BID JONATHAN Administration Enoxaparin Sodium 40 mg 02/22/19 10:00 02/23/19 10:59 Enoxaparin SUB-Q 40 mg QDAY@1000 JONATHAN Administration Hydromorphone HCl 2 mg 02/19/19 09:06 02/24/19 03:41 Dilaudid IV 2 mg Q4H PRN Administration Pain , Severe (7-10) Lisinopril 20 mg 02/23/19 18:00 02/23/19 17:29 Zestril PO 20 mg QDAY JONATHAN Administration Ondansetron HCl 4 mg 02/18/19 19:15 02/23/19 18:27 Zofran IV 4 mg Q3H PRN Administration Nausea And Vomiting Pantoprazole Sodium 40 mg 02/19/19 10:00 02/23/19 10:59 Protonix PO 40 mg QDAY JONATHAN Administration Sodium Chloride 10 ml 02/18/19 22:00 02/23/19 22:29 Sodium Chloride Flush Syringe 10 Ml IV 10 ml BID JONATHAN Administration Sodium Chloride 10 ml 02/18/19 19:15 Sodium Chloride Flush Syringe 10 Ml IV PRN PRN LINE FLUSH
[2019-02-24] MEDS: PANTOPRAZOLE 40 MG TAB PO SCH (09:49)
[2019-02-24] MEDS: CARVEDILOL 6.25 MG TAB PO SCH ×2 (09:50→21:27)
[2019-02-24] MEDS: ENOXAPARIN 40 MG/0.4 ML INJ SUB-Q SCH (09:50)
[2019-02-24] MEDS: DOCUSATE SODIUM 100 MG CAP PO SCH ×2 (09:50→21:27)
[2019-02-24] MEDS: ASPIRIN 81 MG TAB CHEW PO SCH (09:50)
[2019-02-24] MEDS: LISINOPRIL 20 MG TAB PO SCH (09:50)
--- NOTE | 2019-02-24 10:01 | Progress Note ---
Assessment and Plan Assessment and plan: 63-year-old man who presented to the hospital with abdominal pain Diagnosis Acute pancreatitis Cholelithiasis Cholecystitis VAHE Elevated troponin Hyperkalemia Chest pain, due to esophagitis and vomiting Reflux esophagitis Hypertension CAD Hepatitis C Plan Patient was treated with supportive care, IV fluids pain meds and antiemetics Patient has improved, electrolytes and kidney function has improved Patient was seen by cardiology, chest pain was due to esophagitis and vomiting, noncardiac in origin Patient continues to have right upper quadrant pain related to food. Plan for cholecystectomy today Optimize blood pressure medications K normal for days, dc tele monitor DVT prophylaxis with Lovenox History Interval history: Continues to complain of abdominal pain which is related to food Review of systems Constitutional: No fevers, no malaise, no joint pains CVS: No chest pain, no orthopnea, no pedal edema GI: , no diarrhea, no vomiting, no constipation Respiratory: No shortness of breath, no wheezing, no coughing Hospitalist Physical - Physical exam Narrative exam: General.: Mild distress HEENT: Moist mucous membranes, extraocular muscles intact, no lymphadenopathy Neck: supple Cardiac: S1-S2 heard Lungs: clear to auscultation bilaterally Abdomen: soft , lower abdominal tenderness, nondistended, bowel sounds positive Extremities: no edema clubbing or cyanosis Skin: no rash or lesions Neurologic: no gross focal deficits Psych: calm, and cooperative - Constitutional Vitals: Temp Pulse Resp BP Pulse Ox 98.3 F 69 17 170/67 94 02/24/19 05:47 02/24/19 09:50 02/24/19 08:09 02/24/19 09:50 02/24/19 08:11 General appearance: Present: obese Results - Labs CBC & Chem 7: 02/23/19 06:08 02/23/19 06:08 Labs: Laboratory Last Values WBC 7.6 K/mm3 (4.5-11.0) 02/23/19 06:08 RBC 4.44 M/mm3 (3.65-5.03) 02/23/19 06:08 Hgb 15.1 gm/dl (11.8-15.2) 02/23/19 06:08 Hct 43.3 % (35.5-45.6) 02/23/19 06:08 MCV 98 fl (84-94) H 02/23/19 06:08 MCH 34 pg (28-32) H 02/23/19 06:08 MCHC 35 % (32-34) H 02/23/19 06:08 RDW 14.4 % (13.2-15.2) 02/23/19 06:08 Plt Count 108 K/mm3 (140-440) L 02/23/19 06:08 Lymph % (Auto) 18.9 % (13.4-35.0) 02/23/19 06:08 [place] % (Auto) 15.6 % (0.0-7.3) H 02/23/19 06:08 Eos % (Auto) 4.3 % (0.0-4.3) 02/23/19 06:08 Baso % (Auto) 0.6 % (0.0-1.8) 02/23/19 06:08 Lymph # 1.4 K/mm3 (1.2-5.4) 02/23/19 06:08 [place] # 1.2 K/mm3 (0.0-0.8) H 02/23/19 06:08 Eos # 0.3 K/mm3 (0.0-0.4) 02/23/19 06:08 Baso # 0.0 K/mm3 (0.0-0.1) 02/23/19 06:08 Seg Neutrophils % 60.6 % (40.0-70.0) 02/23/19 06:08 Seg Neutrophils # 4.6 K/mm3 (1.8-7.7) 02/23/19 06:08 PT 13.7 Sec. (12.2-14.9) 02/18/19 15:08 INR 1.06 (0.87-1.13) 02/18/19 15:08 APTT 32.1 Sec. (24.2-36.6) 02/18/19 15:08 Sodium 142 mmol/L (137-145) 02/23/19 06:08 Potassium 3.8 mmol/L (3.6-5.0) 02/23/19 06:08 Chloride 107.5 mmol/L (98-107) H 02/23/19 06:08 Carbon Dioxide 23 mmol/L (22-30) 02/23/19 06:08 Anion Gap 15 mmol/L 02/23/19 06:08 BUN 14 mg/dL (9-20) 02/23/19 06:08 Creatinine 0.9 mg/dL (0.8-1.5) 02/23/19 06:08 Estimated GFR > 60 ml/min 02/23/19 06:08 BUN/Creatinine Ratio 16 % 02/23/19 06:08 Glucose 124 mg/dL (75-100) H 02/23/19 06:08 Hemoglobin A1c 5.3 % (4-6) 02/18/19 20:31 Calcium 7.3 mg/dL (8.4-10.2) L 02/23/19 06:08 Magnesium 1.90 mg/dL (1.7-2.3) 02/22/19 05:13 Total Bilirubin 2.30 mg/dL (0.1-1.2) H 02/23/19 06:08 AST 42 units/L (5-40) H 02/23/19 06:08 ALT 29 units/L (7-56) 02/23/19 06:08 Alkaline Phosphatase 99 units/L (35-129) 02/23/19 06:08 Troponin T 0.076 ng/mL (0.00-0.029) H D 02/18/19 20:33 Total Protein 6.5 g/dL (6.3-8.2) 02/23/19 06:08 Albumin 2.6 g/dL (3.9-5) L 02/23/19 06:08 Albumin/Globulin Ratio 0.7 % 02/23/19 06:08 Triglycerides 92 mg/dL (2-149) 02/18/19 18:10 Cholesterol 82 mg/dL (50-199) 02/18/19 18:10 LDL Cholesterol Direct 54 mg/dL (50-130) 02/18/19 18:10 HDL Cholesterol 25 mg/dL (40-59) L 02/18/19 18:10 Cholesterol/HDL Ratio 3.28 % 02/18/19 18:10 Lipase 40 units/L (13-60) 02/22/19 05:13 Urine Color Ally (Yellow) 02/21/19 09:30 Urine Turbidity Clear (Clear) 02/21/19 09:30 Urine pH 5.0 (5.0-7.0) 02/21/19 09:30 Ur Specific [place] 1.012 (1.003-1.030) 02/21/19 09:30 Urine Protein <15 mg/dl mg/dL (Negative) 02/21/19 09:30 Urine Glucose (UA) Neg mg/dL (Negative) 02/21/19 09:30 Urine Ketones Neg mg/dL (Negative) 02/21/19 09:30 Urine Blood Mod (Negative) 02/21/19 09:30 Urine Nitrite Neg (Negative) 02/21/19 09:30 Urine Bilirubin Neg (Negative) 02/21/19 09:30 Urine Urobilinogen 4.0 mg/dL (<2.0) 02/21/19 09:30 Ur Leukocyte Esterase Neg (Negative) 02/21/19 09:30 Urine WBC (Auto) 5.0 /HPF (0.0-6.0) 02/21/19 09:30 Urine RBC (Auto) 2.0 /HPF (0.0-6.0) 02/21/19 09:30 U Epithel Cells (Auto) < 1.0 /HPF (0-13.0) 02/21/19 09:30 Urine Creatinine 103.9 mg/dL (0.1-20.0) H 02/21/19 09:27 Urine Sodium 10 mmol/L 02/21/19 09:27 Hepatitis A IgM Ab Non-reactive (NonReactive) 02/18/19 20:32 Hep Bs Antigen Non-reactive (Negative) 02/18/19 20:32 Hep B Core IgM Ab Non-reactive (NonReactive) 02/18/19 20:32 Hepatitis C Antibody Reactive (NonReactive) A 02/18/19 20:32 Active Medications - Current Medications Current Medications: Generic Name Dose Route Start Last Admin Trade Name Freq PRN Reason Stop Dose Admin Acetaminophen 650 mg 02/18/19 19:15 Tylenol PO Q4H PRN Pain MILD(1-3)/Fever >100.5/NORIEGA Acetaminophen/Hydrocodone Bitart 1 each 02/22/19 12:09 02/23/19 10:47 [place] 5/325 PO 1 each Q4H PRN Administration Pain, Moderate (4-6) Albuterol/Ipratropium 1 ampul 02/21/19 23:00 02/24/19 08:09 Duoneb *Not For Prn Use* IH 1 ampul Q6HRT JONATHAN Administration Aspirin 81 mg 02/20/19 10:00 02/24/19 09:50 Baby Aspirin PO Not Given QDAY JONATHAN Carvedilol 6.25 mg 02/19/19 22:00 02/24/19 09:50 Coreg PO 6.25 mg BID JONATHAN Administration Diphenhydramine HCl 25 mg 02/19/19 12:05 02/20/19 12:23 Benadryl IV 25 mg Q6H PRN Administration Itching Docusate Sodium 100 mg 02/23/19 10:00 02/24/19 09:50 Colace PO Not Given BID JONATHAN Enoxaparin Sodium 40 mg 02/22/19 10:00 02/24/19 09:50 Enoxaparin SUB-Q Not Given QDAY@1000 [facility] Hydromorphone HCl 2 mg 02/19/19 09:06 02/24/19 03:41 Dilaudid IV 2 mg Q4H PRN Administration Pain , Severe (7-10) Lisinopril 20 mg 02/23/19 18:00 02/24/19 09:50 Zestril PO 20 mg QDAY JONATHAN Administration Ondansetron HCl 4 mg 02/18/19 19:15 02/23/19 18:27 Zofran IV 4 mg Q3H PRN Administration Nausea And Vomiting Pantoprazole Sodium 40 mg 02/19/19 10:00 02/24/19 09:49 Protonix PO Not Given QDAY [facility] Sodium Chloride 10 ml 02/18/19 22:00 02/24/19 09:49 Sodium Chloride Flush Syringe 10 Ml IV 10 ml BID JONATHAN Administration Sodium Chloride 10 ml 02/18/19 19:15 Sodium Chloride Flush Syringe 10 Ml IV PRN PRN LINE FLUSH
--- NOTE | 2019-02-24 11:08 | Progress Note ---
Assessment and Plan Currently stable cardiac status. Pt states he is going for cholecystectomy today at 1PM. Pt is at moderate cardiovascular risk for contemplated surgery. There are no immediate cardiac contraindications to proceeding with contemplated surgery at this time. Will follow. The patient has been seen in conjunction with Dr. Pardo who agrees with the assessment and plan of care. - Patient Problems (1) Acute pancreatitis Current Visit: Yes Status: Acute (2) Cholelithiasis Current Visit: Yes Status: Acute (3) CAD (coronary artery disease) Current Visit: Yes Status: Chronic Qualifiers: Coronary Disease-Associated Artery/Lesion type: [place] artery [place] vs. transplanted heart: [place] heart Associated angina: with other forms of angina Qualified Code(s): I25.118 - Atherosclerotic heart disease of [place] coronary artery with other forms of angina pectoris (4) Stented coronary artery Current Visit: Yes Status: Chronic (5) Elevated troponin Current Visit: Yes Status: Acute (6) Hypertension Current Visit: Yes Status: Chronic Qualifiers: Hypertension type: essential hypertension Qualified Code(s): I10 - Essential (primary) hypertension (7) H/O ETOH abuse Current Visit: Yes Status: Chronic (8) Hepatitis C Current Visit: Yes Status: Chronic (9) VAHE (acute kidney injury) Current Visit: Yes Status: Acute (10) Liver disease Current Visit: Yes Status: Chronic (11) Thrombocytopenia Current Visit: Yes Status: Acute (12) Obesity Current Visit: Yes Status: Chronic (13) Aortic stenosis Current Visit: Yes Status: Chronic Subjective Date of service: 02/24/19 Principal diagnosis: pancreatitis, hyperbilirubinemia Interval history: pt resting in bed, no current cardiac complaints. in SR on tele. pt states he is going for surgery today at 1pm. Objective Last Vital Signs Temp 98.3 F 02/24/19 05:47 Pulse 69 02/24/19 09:50 Resp 17 02/24/19 08:09 BP 170/67 02/24/19 09:50 Pulse Ox 94 02/24/19 08:11 - Physical Examination General: No Apparent Distress HEENT: Positive: PERRL, Normocephaly, Mucus Membranes Moist Neck: Positive: neck supple, trachea midline Cardiac: Positive: Reg Rate and Rhythm, S1/S2 Lungs: Positive: clear to auscultation Neuro: Positive: Grossly Intact Abdomen: Positive: Tender Skin: Negative: Rash Musculoskeletal: No Pain Extremities: Absent: edema - Imaging and Cardiology EKG: report reviewed, image reviewed Echo: report reviewed (08/2014 showed EF 50-55%, LA mildly dilated, mild with mean gradient 13mmHg. ) Cardiac cath: report reviewed (OP LHC done at [facility] on 01/28/2019 (indicated due to abnormal stress test) showed nonobstructive CAD (left main, LAD and circ <10% luminal irregularities, mid RCA 60% stenosis, distal RCA 80% stenosis. ) - EKG Sinus rhythms and dysrhythmias: sinus rhythm
--- NOTE | 2019-02-24 13:05 | Anesthesia Consultation ---
Anesthesia Consult and Med Hx Date of service: 02/24/19 - Airway Anesthetic Teeth Evaluation: Poor ROM Head & Neck: Adequate Mental/Hyoid Distance: Adequate Mallampati Class: Class II Intubation Access Assessment: Good - Pulmonary Exam CTA: Yes - Cardiac Exam Cardiac Exam: RRR - Pre-Operative Health Status ASA Pre-Surgery Classification: ASA3 Proposed Anesthetic Plan: General (HTN, Morbid Obesity , CADs/p Cath - moderate risk for GA) - Pulmonary Hx Smoking: Yes Hx Asthma: No SOB: No COPD: No Hx Pneumonia: No Hx Sleep Apnea: Yes - Cardiovascular System Hx Hypertension: Yes Hx Coronary Artery Disease: Yes Hx Heart Attack/AMI: No Hx Angina: No Hx Percutaneous Transluminal Coronary Angioplasty (PTCA): Yes (x 1) Hx Pacemaker: No Hx Peripheral Vascular Disease: No - Central Nervous System CVA: No Hx Back Pain: Yes (chronic) Hx Psychiatric Problems: Yes - Gastrointestinal Hx Gastroesophageal Reflux Disease: Yes - Endocrine Hx End Stage Renal Disease: No Hx Cirrhosis: Yes Hx Liver Disease: Yes (Hep C) - Hematic Hx Anemia: No Hx Sickle Cell Disease: No - Other Systems Hx Alcohol Use: Yes Hx Substance Use: Yes Hx Cancer: No Hx Obesity: Yes
--- NOTE | 2019-02-24 13:05 | Anesthesia Day of Surgery ---
Anesthesia Day of Surgery - Day of Surgery Patient Examined: Yes Patient H&P Reviewed: Yes Patient is NPO: Yes
[2019-02-24] MEDS ORDERED: LACTATED RINGERS 1,000 ML ONE ×2 (13:07→15:07)
[2019-02-24] MEDS: LACTATED RINGERS 1,000 ML IV SCH ×2 (13:10→21:28)
[2019-02-24] MEDS ORDERED: ceFAZolin/STERILE WATER 2 GM/20 ML SYRINGE IV NR (13:25)
[2019-02-24] MEDS ORDERED: LIDOCAINE (1%) 10 MG/1 ML VIAL 20 ML MDV ONE (13:30)
[2019-02-24] MEDS ORDERED: BUPIVACAINE/PF (0.5%) 5 MG/1 ML 30 ML VIAL INFILTRATI ONE ×2 (13:30→14:29)
[2019-02-24] MEDS ORDERED: LIDOCAINE MPF (2%) 20 MG/1 ML VIAL 5 ML ONE (13:32)
[2019-02-24] MEDS ORDERED: ROCURONIUM 50 MG/5 ML INJ IV ONE (13:32)
[2019-02-24] MEDS ORDERED: fentaNYL 100 MCG/2 ML INJ ONE ×2 (13:32→17:27)
[2019-02-24] MEDS ORDERED: PROPOFOL 200 MG/20 ML VIAL IV ONE (13:33)
[2019-02-24] MEDS ORDERED: MIDAZOLAM 2 MG/2 ML INJ IV NR (14:00)
[2019-02-24] MEDS ORDERED: ePHEDrine SULFATE 50 MG/1 ML INJ ONE (14:09)
[2019-02-24] MEDS ORDERED: ceFAZolin 1 GM VIAL ONE (14:17)
[2019-02-24] MEDS ORDERED: LIDOCAINE (1%) 10 MG/1 ML VIAL 20 ML MDV INFILTRATI ONE (14:29)
[2019-02-24] MEDS ORDERED: SODIUM CHLORIDE 0.9% 100 ML ONE (14:43)
[2019-02-24] MEDS ORDERED: WATER FOR IRRIG STERILE 1,500 ML BOTTLE IR ONE (14:44)
--- NOTE | 2019-02-24 15:53 | Event Note ---
<MAGGIE CHU - Last Filed: 02/24/19 15:52> Date: 02/24/19 Patient s/p CCY today. Notified by surgery of filing defect with IOC. Will repeat labs in am and consider ERCP based on progress. NPO after MN. <KAREN NDIAYE - Last Filed: 02/24/19 17:18> Discussed with Dr. Brunson, and IOC images reviewed. There is what appears to be a round filling defect at CD/CBD juncture, but nonmobile. - will f/u in AM, and discuss findings with pt and family. - given normal LFTs, options are to do ERCP vs expectant management and observe for symptoms or abnormal LFTs.
[2019-02-24] MEDS ORDERED: GLYCOPYRROLATE 0.4 MG/2 ML INJ ONE (16:22)
[2019-02-24] MEDS ORDERED: NEOSTIGMINE 10MG/10 ML INJ MDV ONE (16:22)
--- NOTE | 2019-02-24 16:29 | Fluoroscopy Report ---
Intraoperative cholangiogram Indication: Intraoperative biliary evaluation. Findings: Normal filling of the CBD with contrast spill into the duodenum. No obstructive stone dis ease. Impression: Unremarkable exam. Fluoroscopic time: 24 seconds Number of images: 3 Signer Name: Michael De Leon MD Signed: 02/24/2019 4:25 PM Workstation Name: [id number]
--- NOTE | 2019-02-24 16:38 | Post Operative Note ---
Date of procedure: 02/24/19 Pre-op diagnosis: gallstone pancreatitis Post-op diagnosis: same Findings: pericholecystic fluid moderate stone in gallbladder IOC - filling defect in common bile duct without obstruction, normal filling of duodenum and hepatic ducts Cirrhotic liver Procedure: robotic assisted cholecystectomy with IOC Anesthesia: GETA, local Surgeon: JACINTO ARENAS [employer] Unix Engineer: AGNIESZKA GARCÍA Estimated blood loss: 50-100ml Pathology: list (gallbladder) Specimen disposition: to lab Condition: stable Disposition: PACU
[2019-02-24] MEDS ORDERED: HYDROmorphone 1 MG/1 ML INJ ONE (16:48)
[2019-02-24] MEDS ORDERED: ONDANSETRON 4 MG/2 ML INJ IV PRN (16:49)
[2019-02-24] MEDS: HYDROmorphone 1 MG/1 ML INJ IV PRN ×4 (16:49→17:19)
--- NOTE | 2019-02-24 17:20 | Operative Report ---
PREOPERATIVE DIAGNOSIS: Gallstone pancreatitis. POSTOPERATIVE DIAGNOSIS: Gallstone pancreatitis. FINDINGS: 1. Pericholecystic fluid. 2. Moderate size stone in the gallbladder with distended gallbladder filled with bile. 3. Cirrhotic liver. 4. IOC showed a filling defect in the common bile duct at the junction of the cystic duct and common bile duct without obstruction, normal filling of the duodenum and hepatic duct. PROCEDURE: Robotic-assisted cholecystectomy with intraoperative cholangiogram. ANESTHESIA: General endotracheal anesthesia, local. SURGEON: Jennifer Brunson DO. STATISTICAL DEVELOPER: Deric Sykes MD ESTIMATED BLOOD LOSS: 50 mL. PATHOLOGY: Gallbladder. SPECIMEN DISPOSITION: To lab. CONDITION ON DISCHARGE: The patient is stable to PACU. HISTORY OF PRESENT ILLNESS AND INDICATION: The patient is a 63-year-old male who presented to the hospital with complaints of chest and upper abdominal pain. After workup was completed, he was found to have pancreatitis due to a biliary source. Ultrasound of the gallbladder did show stones in the gallbladder and ALT and bilirubin were mildly elevated. The patient cannot get an MRCP due to weight restriction. GI and Cardiology were on board. GI deferred ERCP and recommended cholecystectomy with IOC. Cardiology did see the patient and deemed him moderate risk, but optimized for surgery. The patient did not tolerate a regular diet without pain and therefore was recommended to proceed with cholecystectomy. All risks, benefits and alternatives to surgery were discussed with the patient and his family at the bedside. Questions were answered and consent obtained. PROCEDURE IN DETAIL: The patient was identified in the preoperative area and taken back to the operating room and placed on the operating table in supine position. After anesthesia was induced, the right arm was tucked and all bony prominences padded appropriately. The abdomen was prepped and draped in the usual sterile fashion. Timeout was performed. A local anesthetic was infiltrated in all skin incision sites prior to incision. A collin incision was made in the left upper quadrant at No's point. A Veress needle was inserted; however, the positioning could not be verified because saline did not freely flowed through the needle. Therefore, it was decided to perform an Optiview entry. The incision was elongated and a 5 mm long Optiview trocar was very carefully inserted through the abdominal wall and through the abdominal wall layers under direct visualization. The abdomen was then insufflated to 15 mmHg and inspected. There was no underlying injury to any of the abdominal structures. An additional 12 mm supraumbilical balloon trocar was placed under direct visualization, two robotic trocars in the right upper quadrant as well as a robotic 8 mm trocar in the left upper abdomen. The robot was then docked and the surgeon transferred to the console. A monopolar hook was placed in arm #1, a Cadiere grasper in arm #2 and ProGrasp in arm #3. The gallbladder was visualized and there were dense adhesions from the omentum to the gallbladder. The gallbladder was also very distended. These adhesions were first using combination of blunt dissection and electrocautery with great care to avoid injury to the underlying structures. Once enough of the adhesions were taken down, the gallbladder was decompressed by the assistant editor surgeon. A laparoscopic needle was inserted into the gallbladder and greater than 60 mL of green bile was aspirated. The gallbladder was then grasped and retracted cephalad and the remainder of the omental adhesions were very carefully dissected away from the gallbladder. In order to facilitate better retraction of the gallbladder above the liver, a dome down approach was taken. The gallbladder was from the liver bed in an avascular plane. There was pericholecystic fluid and edema. Once enough dissection was complete, the gallbladder was better able to be retracted. Please note that the liver was very cirrhotic and there was some engorged veins in the peritoneal reflection of the gallbladder. The gallbladder neck was then dissected. The cystic artery and cystic duct were carefully skeletonized. These were seen as the only two structures entering the gallbladder and the critical view was obtained. Two clips were placed on the proximal aspect of the cystic artery and it was transected using monopolar hook. The clip was placed on the distal aspect of the cystic duct and a ductotomy was created using EndoShears by the assistant editor surgeon. A cholangiogram catheter was inserted through the assistant editor trocar and placed into the cystic duct. It was tested with injectable saline and there was no leak identified. The cholangiogram was then performed, which showed a moderate sized filling defect in the CBD at the junction of the cystic duct and the common bile duct. However, there was no obstruction and the remainder of the common bile duct filled normally and tapered at the ampulla and filled the duodenum. The hepatic ducts also filled with contrast. The cholangiogram catheter was then removed and two additional clips placed on the proximal aspect of the cystic duct. The remainder of the cystic duct was then transected using EndoShears. The remainder of the gallbladder was then dissected using hook electrocautery and the gallbladder placed in the right upper quadrant. The liver bed and gallbladder fossa was checked for hemostasis, which was carefully ensured. Hemostasis was achieved using electrocautery. The clips were visualized and intact. There was no bleeding or bile leakage from this area. The robot was then undocked and the surgeon scrubbed back in. The remainder of the procedure was performed laparoscopically. The gallbladder was placed in an EndoCatch bag and removed via the 12 mm port. Morison's pouch and gallbladder fossa were once again irrigated until the irrigant returned clear. Kassandra powder was sprayed into the gallbladder fossa to further ensure hemostasis. The 12 mm port fascia was then closed using an interrupted 0 Vicryl suture using Julito-Ni device. The remainder of the ports were removed under direct visualization and the abdomen desufflated. The skin incisions were closed with 4-0 Monocryl subcuticular stitches and skin glue. At the end of the case, all sponge, instrument, sharp counts were correct x 2. The patient was awoken from anesthesia, extubated, and taken to PACU in stable condition. JOB# [id number] [place]
[2019-02-24] MEDS: fentaNYL 100 MCG/2 ML INJ IV PRN ×2 (17:27→17:37)
--- NOTE | 2019-02-24 19:45 | Post Anesthesia Evaluation ---
- Post Anesthesia Evaluation Patient Participated: Yes Airway Patent: Yes Stable Respiratory Function: Yes Nausea/Vomiting: No Temp > 96.8F: Yes Pain Manageable: Yes Adequeate Hydration: Yes Anesthesia Complications: No
[2019-02-24] MEDS: HYDROcodone/ACETAMINOPHEN 5-325 MG TAB PO PRN (21:28)
[2019-02-25] MEDS: IPRATROPIUM/ALBUTEROL SULFATE 3 ML AMPUL.NEB IH SCH ×4 (02:20→20:35)
[2019-02-25] MEDS: HYDROmorphone 2 MG/1 ML INJ IV PRN ×3 (05:52→16:41)
[2019-02-25 06:59] LABS: Alanine Aminotransferase 30 units/L (7-56); Albumin 2.6 g/dL (3.9-5); BUN/Creatinine Ratio 18; Blood Urea Nitrogen 14 mg/dL (9-20); Calcium 7.8 mg/dL (8.4-10.2); Hemolysis Index 8
--- NOTE | 2019-02-25 10:19 | Discharge Summary ---
<JACINTO ARENAS - Last Filed: 02/26/19 13:18> Providers - Providers Date of Admission: 02/18/19 18:35 Attending physician: NICOLAS WARNER MD 02/18/19 19:15 Consult to Physician [CONS] Routine Comment: Consulting Provider: JACINTO ARENAS Physician Instructions: Reason For Exam: acute pancreatitis 02/19/19 07:36 Consult to Physician [CONS] Routine Comment: Consulting Provider: GILMER MAGANA Physician Instructions: Reason For Exam: Acute pancreatitis 02/19/19 09:34 Consult to Physician [CONS] Routine Comment: Consulting Provider: KEVIN CHUN Physician Instructions: Reason For Exam: elevated tropinin 02/19/19 16:31 Consult to Physician [CONS] Routine Comment: Consulting Provider: JERMAINE PRINCE Physician Instructions: Reason For Exam: VAHE [facility] Condition: Stable Disposition: DC-01 TO HOME OR SELFCARE Exam - Constitutional Vitals: Temp Pulse Resp BP Pulse Ox 98.2 F 71 18 165/71 95 02/26/19 05:36 02/26/19 08:34 02/26/19 08:34 02/26/19 09:26 02/26/19 09:08 Plan Activity: other (avoid heavy lifting for the next 2 weeks) Wound: open to air, other (may shower, pat incisions dry, do not scrub incisions) Follow up with: JACINTO ARENAS DO [Staff Physician] - 14 [facility] - 3-5 Days Prescriptions: Carvedilol [Coreg] 6.25 mg PO BID #60 tablet Tamsulosin [Flomax] 0.4 mg PO QDAY #30 capsule Aspirin EC [Halfprin EC] 81 mg PO QDAY #30 tablet. Polyethylene Glycol 3350 [Miralax 3350] 17 gm PO QDAY #30 powd.pack HYDROcodone/APAP 5-325 [Shamrock 5-325 mg TAB] 1 each PO Q4H PRN #14 tablet PRN Reason: Pain, Moderate (4-6) oxyCODONE /ACETAMINOPHEN [Percocet 5/325] 1 tab PO Q6HR PRN #14 tablet PRN Reason: Pain Hydrocortisone 2.5% [Proctosol-Hc] 1 applic W[place] Q8H PRN #1 tube PRN Reason: Hemorrhoids Pantoprazole [Protonix TAB] 40 mg PO QDAY #30 tablet Glycerin/Witch Babrara Pad [Tucks Pad] 1 each TP PRN PRN #1 box PRN Reason: Hemorrhoids <NICOLAS WARNER - Last Filed: 02/27/19 12:23> Providers - Providers Date of Admission: 02/18/19 18:35 Attending physician: NICOLAS WARNER MD 02/18/19 19:15 Consult to Physician [CONS] Routine Comment: Consulting Provider: JACINTO ARENAS Physician Instructions: Reason For Exam: acute pancreatitis 02/19/19 07:36 Consult to Physician [CONS] Routine Comment: Consulting Provider: GILMER MAGANA Physician Instructions: Reason For Exam: Acute pancreatitis 02/19/19 09:34 Consult to Physician [CONS] Routine Comment: Consulting Provider: KEVIN CHUN Physician Instructions: Reason For Exam: elevated tropinin 02/19/19 16:31 Consult to Physician [CONS] Routine Comment: Consulting Provider: JERMAINE PRINCE Physician Instructions: Reason For Exam: VAHE [facility] Hospital course: Assessment and Plan Assessment and plan: 63-year-old man who presented to the hospital with abdominal pain Diagnosis Acute pancreatitis Cholelithiasis Cholecystitis VAHE Elevated troponin Hyperkalemia Chest pain, due to esophagitis and vomiting Reflux esophagitis Hypertension CAD Hepatitis C VAHE due to vasomotor nephropathy and ATN Plan Patient was treated with supportive care, IV fluids pain meds and antiemetics Patient has improved, electrolytes and kidney function has improved Patient was seen by cardiology, chest pain was due to esophagitis and vomiting, noncardiac in origin Patient continues to have right upper quadrant pain related to food. Status post cholecystectomy after which she improved Optimize blood pressure medications -Patient's kidney function improved with IV fluids DVT prophylaxis with Lovenox Time spent for discharge: 33 mins Core Measure Documentation - Palliative Care Palliative Care/ Comfort Measures: Not Applicable - Core Measures Any of the following diagnoses?: none Exam - Constitutional Vitals: Temp Pulse Resp BP Pulse Ox 98.6 F 96 H 20 163/67 95 02/25/19 05:35 02/25/19 09:43 02/25/19 09:43 02/25/19 05:35 02/25/19 09:26 General appearance: Present: no acute distress, well-nourished - EENT Eyes: Present: PERRL ENT: hearing intact, clear oral mucosa - Neck Neck: Present: supple, normal ROM - Respiratory Respiratory effort: normal Respiratory: bilateral: CTA - Cardiovascular Heart Sounds: Present: S1 & S2. Absent: rub, click - Extremities Extremities: pulses symmetrical, No edema Peripheral Pulses: within normal limits - Abdominal General gastrointestinal: Present: soft, non-tender, non-distended, normal bowel sounds Male genitourinary: Present: normal - Integumentary Integumentary: Present: clear, warm, dry - Musculoskeletal Musculoskeletal: gait normal, strength equal bilaterally - Psychiatric Psychiatric: appropriate mood/affect, intact judgment & insight - Neurologic Neurologic: CNII-XII intact, moves all extremities
[2019-02-25] MEDS: LACTATED RINGERS 1,000 ML IV SCH (10:28)
[2019-02-25] MEDS: PANTOPRAZOLE 40 MG TAB PO SCH (10:31)
[2019-02-25] MEDS: ENOXAPARIN 40 MG/0.4 ML INJ SUB-Q SCH (10:31)
[2019-02-25] MEDS: DOCUSATE SODIUM 100 MG CAP PO SCH ×2 (10:31→21:31)
[2019-02-25] MEDS: CARVEDILOL 6.25 MG TAB PO SCH ×2 (10:32→21:25)
[2019-02-25] MEDS: ASPIRIN 81 MG TAB CHEW PO SCH (10:32)
[2019-02-25] MEDS: LISINOPRIL 20 MG TAB PO SCH (10:32)
--- NOTE | 2019-02-25 10:48 | Progress Note ---
Assessment and Plan Currently stable cardiac status. S/p CCY yesterday. Pt noted to have IOC filling defect. GI team to consider ERCP. Await GI recs. The patient has been seen in conjunction with Dr. Pardo who agrees with the assessment and plan of care. - Patient Problems (1) Acute pancreatitis Current Visit: Yes Status: Acute (2) Cholelithiasis Current Visit: Yes Status: Acute (3) CAD (coronary artery disease) Current Visit: Yes Status: Chronic Qualifiers: Coronary Disease-Associated Artery/Lesion type: [place] artery [place] vs. transplanted heart: [place] heart Associated angina: with other forms of angina Qualified Code(s): I25.118 - Atherosclerotic heart disease of [place] coronary artery with other forms of angina pectoris (4) Stented coronary artery Current Visit: Yes Status: Chronic (5) Elevated troponin Current Visit: Yes Status: Acute (6) Hypertension Current Visit: Yes Status: Chronic Qualifiers: Hypertension type: essential hypertension Qualified Code(s): I10 - Essential (primary) hypertension (7) H/O ETOH abuse Current Visit: Yes Status: Chronic (8) Hepatitis C Current Visit: Yes Status: Chronic (9) VAHE (acute kidney injury) Current Visit: Yes Status: Acute (10) Liver disease Current Visit: Yes Status: Chronic (11) Thrombocytopenia Current Visit: Yes Status: Acute (12) Obesity Current Visit: Yes Status: Chronic (13) Aortic stenosis Current Visit: Yes Status: Chronic Subjective Date of service: 02/25/19 Principal diagnosis: pancreatitis, hyperbilirubinemia Interval history: pt ambulating around room, no current cardiac complaints. in SR on tele. Objective Last Vital Signs Temp 98.6 F 02/25/19 05:35 Pulse 74 02/25/19 10:32 Resp 20 02/25/19 09:43 BP 175/71 02/25/19 10:32 Pulse Ox 95 02/25/19 09:26 - Physical Examination General: No Apparent Distress HEENT: Positive: PERRL, Normocephaly, Mucus Membranes Moist Neck: Positive: neck supple, trachea midline Cardiac: Positive: Reg Rate and Rhythm, S1/S2 Lungs: Positive: clear to auscultation Neuro: Positive: Grossly Intact Abdomen: Positive: Tender Skin: Negative: Rash Musculoskeletal: No Pain Extremities: Absent: edema - Labs and Meds Cardiac Enzymes 10/31/19 Range/Units 05:50 AST 55 H (5-40) units/L Comprehensive Metabolic Panel 02/25/19 Range/Units 05:50 Sodium 142 (137-145) mmol/L Potassium 3.5 L (3.6-5.0) mmol/L Chloride 104.4 (98-107) mmol/L Carbon Dioxide 24 (22-30) mmol/L BUN 14 (9-20) mg/dL Creatinine 0.8 (0.8-1.5) mg/dL Glucose 115 H (75-100) mg/dL Calcium 7.8 L (8.4-10.2) mg/dL AST 55 H (5-40) units/L ALT 30 (7-56) units/L Alkaline Phosphatase 109 (35-129) units/L Total Protein 6.5 (6.3-8.2) g/dL Albumin 2.6 L (3.9-5) g/dL - Imaging and Cardiology EKG: report reviewed, image reviewed Echo: report reviewed (08/2014 showed EF 50-55%, LA mildly dilated, mild with mean gradient 13mmHg. ) Cardiac cath: report reviewed (OP LHC done at [facility] on 01/28/2019 (indicated due to abnormal stress test) showed nonobstructive CAD (left main, LAD and circ <10% luminal irregularities, mid RCA 60% stenosis, distal RCA 80% stenosis. ) - EKG Sinus rhythms and dysrhythmias: sinus rhythm
--- NOTE | 2019-02-25 11:34 | Gastroenterology Progress Note ---
<VLADMAGGIENHI Grover - Last Filed: 02/25/19 11:38> Assessment and Plan 1.gallstone pancreatitis -afebrile -WBC and H/H WNL -lipase now WNL -LFTs- T.clotilde 1.60 (trended down), AST 55, ALT 30, alk phos 109 -s/p cholecystectomy yesterday with IOC showing a filling defect at CD/CBD junction but nonmobile -clinically, patient is stable w/o abd pain or N/V this am. Tolerating diet. -no plan for ERCP today, will consider based on progress (labs/symptoms) -continue to trend labs and supportive care -will follow 2.liver disease - CT with fatty liver but no varices or ascites; platelents low, and chronic elevated LFTs. Would be considered Uriah A (at worst) 3.hepatitis C -Hx of prior treatment failure with IFN; no further treatment 3.H/o ETOH abuse -Sober x 3 years per patient; no signs of DTs. I feel no need for CIWA at present Subjective Date of service: 02/25/19 Principal diagnosis: pancreatitis, hyperbilirubinemia Interval history: Patient resting in bed this am w/o acute distress. Denies abd pain or N/V but c/o constipation. Tolerating diet w/o difficulty. Objective - Constitutional Vitals: Temp Pulse Resp BP Pulse Ox 98.6 F 74 20 175/71 95 02/25/19 05:35 02/25/19 10:32 02/25/19 09:43 02/25/19 10:32 02/25/19 09:26 General appearance: no acute distress, obese - Respiratory Respiratory effort: normal - Cardiovascular Rhythm: regular - Gastrointestinal General gastrointestinal: Present: soft, non-tender, non-distended, normal bowel sounds, other (+surgical sites) - Neurologic Neurological: alert and oriented x3 - Labs CBC & Chem 7: 02/23/19 06:08 02/25/19 05:50 Labs: Laboratory Results - last 24 hr 02/25/19 05:50 Sodium 142 Potassium 3.5 L Chloride 104.4 Carbon Dioxide 24 Anion Gap 17 BUN 14 Creatinine 0.8 Estimated GFR > 60 BUN/Creatinine Ratio 18 Glucose 115 H Calcium 7.8 L Total Bilirubin 1.60 H AST 55 H ALT 30 Alkaline Phosphatase 109 Total Protein 6.5 Albumin 2.6 L Albumin/Globulin Ratio 0.7 <KAREN NDIAYE R - Last Filed: 02/25/19 14:59> Assessment and Plan IOC result noted. Films suspicious, but not read as such by Radiologist. Discussed options with pt, of observation, vs ERCP. Discussed risks and benefits. LFT elevation not c/w biliary obstruction, as per note yesterday. Pt opts for observation, and I agree. Can f/u as outpatient. Will sign off. Thanks. Objective - Constitutional Vitals: Temp Pulse Resp BP Pulse Ox 98.2 F 96 H 20 146/49 92 02/25/19 12:08 02/25/19 14:25 02/25/19 14:25 02/25/19 12:08 02/25/19 12:08 - Labs CBC & Chem 7: 02/23/19 06:08 02/25/19 05:50 Labs: Laboratory Results - last 24 hr 02/25/19 05:50 Sodium 142 Potassium 3.5 L Chloride 104.4 Carbon Dioxide 24 Anion Gap 17 BUN 14 Creatinine 0.8 Estimated GFR > 60 BUN/Creatinine Ratio 18 Glucose 115 H Calcium 7.8 L Total Bilirubin 1.60 H AST 55 H ALT 30 Alkaline Phosphatase 109 Total Protein 6.5 Albumin 2.6 L Albumin/Globulin Ratio 0.7
--- NOTE | 2019-02-25 12:19 | Progress Note ---
Assessment and Plan 63 yo M s/p robotic assisted cholecystectomy with IOC, POD 1 Plan: 1. reg diet 2. dc IVF 3. prn PO pain control 4. DVT ppx 5. ok to dc from surgical standpoint when cleared by GI 6. d/w GI, CMP ordered for am. Patient may follow up in surgery clinic in 2 weeks. Thank you, please call with questions Subjective Date of service: 02/25/19 Narrative: Pt seen and examined. soreness at incisions. Tolerated reg diet without n/v or abdominal pain. No f/c Objective Vital Signs - 12hr 02/25/19 02/25/19 02/25/19 02:22 05:35 05:52 Temperature 98.6 F Pulse Rate 66 Pulse Rate [ Anterior Bilateral Throughout] Pulse Rate [ 78 Bilateral Throughout] Respiratory 20 20 Rate Respiratory Rate [Anterior Bilateral Throughout] Respiratory 18 Rate [Bilateral Throughout] Blood Pressure 163/67 O2 Sat by Pulse 92 Oximetry 02/25/19 02/25/19 02/25/19 06:22 09:26 09:43 Temperature Pulse Rate Pulse Rate [ 96 H Anterior Bilateral Throughout] Pulse Rate [ Bilateral Throughout] Respiratory 20 Rate Respiratory 20 Rate [Anterior Bilateral Throughout] Respiratory Rate [Bilateral Throughout] Blood Pressure O2 Sat by Pulse 95 Oximetry 02/25/19 10:32 Temperature Pulse Rate 74 Pulse Rate [ Anterior Bilateral Throughout] Pulse Rate [ Bilateral Throughout] Respiratory Rate Respiratory Rate [Anterior Bilateral Throughout] Respiratory Rate [Bilateral Throughout] Blood Pressure 175/71 O2 Sat by Pulse Oximetry - General physical appearance Narrative Exam: Gen: AAOx3. NAD CV: S1, S2+ Resp; even and unlabored Abd: soft, NT, ND. incisions c/d/i Ext; no c/c/e - Labs 02/23/19 06:08 02/25/19 05:50 Diabetes panel 02/25/19 Range/Units 05:50 Sodium 142 (137-145) mmol/L Potassium 3.5 L (3.6-5.0) mmol/L Chloride 104.4 (98-107) mmol/L Carbon Dioxide 24 (22-30) mmol/L BUN 14 (9-20) mg/dL Creatinine 0.8 (0.8-1.5) mg/dL Glucose 115 H (75-100) mg/dL Calcium 7.8 L (8.4-10.2) mg/dL AST 55 H (5-40) units/L ALT 30 (7-56) units/L Alkaline Phosphatase 109 (35-129) units/L Total Protein 6.5 (6.3-8.2) g/dL Albumin 2.6 L (3.9-5) g/dL Calcium panel 02/25/19 Range/Units 05:50 Calcium 7.8 L (8.4-10.2) mg/dL Albumin 2.6 L (3.9-5) g/dL Pituitary panel 02/25/19 Range/Units 05:50 Sodium 142 (137-145) mmol/L Potassium 3.5 L (3.6-5.0) mmol/L Chloride 104.4 (98-107) mmol/L Carbon Dioxide 24 (22-30) mmol/L BUN 14 (9-20) mg/dL Creatinine 0.8 (0.8-1.5) mg/dL Glucose 115 H (75-100) mg/dL Calcium 7.8 L (8.4-10.2) mg/dL Adrenal panel 02/25/19 Range/Units 05:50 Sodium 142 (137-145) mmol/L Potassium 3.5 L (3.6-5.0) mmol/L Chloride 104.4 (98-107) mmol/L Carbon Dioxide 24 (22-30) mmol/L BUN 14 (9-20) mg/dL Creatinine 0.8 (0.8-1.5) mg/dL Glucose 115 H (75-100) mg/dL Calcium 7.8 L (8.4-10.2) mg/dL Total Bilirubin 1.60 H (0.1-1.2) mg/dL AST 55 H (5-40) units/L ALT 30 (7-56) units/L Alkaline Phosphatase 109 (35-129) units/L Total Protein 6.5 (6.3-8.2) g/dL Albumin 2.6 L (3.9-5) g/dL
[2019-02-25] MEDS: TAMSULOSIN 0.4 MG CAP PO SCH (12:46)
[2019-02-25] MEDS ORDERED: BISACODYL 10 MG RECT SUPP PR ONE (13:30)
--- NOTE | 2019-02-25 15:00 | Progress Note ---
Assessment and Plan Assessment and plan: 63-year-old man who presented to the hospital with abdominal pain Diagnosis Acute pancreatitis Cholelithiasis Cholecystitis VAHE Elevated troponin Hyperkalemia Chest pain, due to esophagitis and vomiting Reflux esophagitis Hypertension CAD Hepatitis C VAHE secondary to vasomotor nephropathy and ATN Plan Patient was treated with supportive care, IV fluids pain meds and antiemetics Patient has improved, electrolytes and kidney function has improved Patient was seen by cardiology, chest pain was due to esophagitis and vomiting, noncardiac in origin Patient continues to have right upper quadrant pain related to food. Status post cholecystectomy on 02/24. Discussed with general surgery, patient is doing better. Discussed with GI, patient still has elevated bilirubin. They will repeat liver function test tomorrow and if improved the patient can be discharged, if not the patient may need ERCP. Optimize blood pressure medications K normal for days, dc tele monitor Kidney function now normalized with IV fluids DVT prophylaxis with Lovenox History Interval history: Continues to complain of abdominal pain which is related to food Review of systems Constitutional: No fevers, no malaise, no joint pains CVS: No chest pain, no orthopnea, no pedal edema GI: , no diarrhea, no vomiting, no constipation Respiratory: No shortness of breath, no wheezing, no coughing Hospitalist Physical - Physical exam Narrative exam: General.: Mild distress HEENT: Moist mucous membranes, extraocular muscles intact, no lymphadenopathy Neck: supple Cardiac: S1-S2 heard Lungs: clear to auscultation bilaterally Abdomen: soft , lower abdominal tenderness, nondistended, bowel sounds positive Extremities: no edema clubbing or cyanosis Skin: no rash or lesions Neurologic: no gross focal deficits Psych: calm, and cooperative - Constitutional Vitals: Temp Pulse Resp BP Pulse Ox 98.2 F 96 H 20 146/49 92 02/25/19 12:08 02/25/19 14:25 02/25/19 14:25 02/25/19 12:08 02/25/19 12:08 General appearance: Present: no acute distress, well-nourished Results - Labs CBC & Chem 7: 02/23/19 06:08 02/25/19 05:50 Labs: Laboratory Last Values WBC 7.6 K/mm3 (4.5-11.0) 02/23/19 06:08 RBC 4.44 M/mm3 (3.65-5.03) 02/23/19 06:08 Hgb 15.1 gm/dl (11.8-15.2) 02/23/19 06:08 Hct 43.3 % (35.5-45.6) 02/23/19 06:08 MCV 98 fl (84-94) H 02/23/19 06:08 MCH 34 pg (28-32) H 02/23/19 06:08 MCHC 35 % (32-34) H 02/23/19 06:08 RDW 14.4 % (13.2-15.2) 02/23/19 06:08 Plt Count 108 K/mm3 (140-440) L 02/23/19 06:08 Lymph % (Auto) 18.9 % (13.4-35.0) 02/23/19 06:08 [place] % (Auto) 15.6 % (0.0-7.3) H 02/23/19 06:08 Eos % (Auto) 4.3 % (0.0-4.3) 02/23/19 06:08 Baso % (Auto) 0.6 % (0.0-1.8) 02/23/19 06:08 Lymph # 1.4 K/mm3 (1.2-5.4) 02/23/19 06:08 [place] # 1.2 K/mm3 (0.0-0.8) H 02/23/19 06:08 Eos # 0.3 K/mm3 (0.0-0.4) 02/23/19 06:08 Baso # 0.0 K/mm3 (0.0-0.1) 02/23/19 06:08 Seg Neutrophils % 60.6 % (40.0-70.0) 02/23/19 06:08 Seg Neutrophils # 4.6 K/mm3 (1.8-7.7) 02/23/19 06:08 PT 13.7 Sec. (12.2-14.9) 02/18/19 15:08 INR 1.06 (0.87-1.13) 02/18/19 15:08 APTT 32.1 Sec. (24.2-36.6) 02/18/19 15:08 Sodium 142 mmol/L (137-145) 02/25/19 05:50 Potassium 3.5 mmol/L (3.6-5.0) L 02/25/19 05:50 Chloride 104.4 mmol/L (98-107) 02/25/19 05:50 Carbon Dioxide 24 mmol/L (22-30) 02/25/19 05:50 Anion Gap 17 mmol/L 02/25/19 05:50 BUN 14 mg/dL (9-20) 02/25/19 05:50 Creatinine 0.8 mg/dL (0.8-1.5) 02/25/19 05:50 Estimated GFR > 60 ml/min 02/25/19 05:50 BUN/Creatinine Ratio 18 % 02/25/19 05:50 Glucose 115 mg/dL (75-100) H 02/25/19 05:50 Hemoglobin A1c 5.3 % (4-6) 02/18/19 20:31 Calcium 7.8 mg/dL (8.4-10.2) L 02/25/19 05:50 Magnesium 1.90 mg/dL (1.7-2.3) 02/22/19 05:13 Total Bilirubin 1.60 mg/dL (0.1-1.2) H 02/25/19 05:50 AST 55 units/L (5-40) H 02/25/19 05:50 ALT 30 units/L (7-56) 02/25/19 05:50 Alkaline Phosphatase 109 units/L (35-129) 02/25/19 05:50 Troponin T 0.076 ng/mL (0.00-0.029) H D 02/18/19 20:33 Total Protein 6.5 g/dL (6.3-8.2) 02/25/19 05:50 Albumin 2.6 g/dL (3.9-5) L 02/25/19 05:50 Albumin/Globulin Ratio 0.7 % 02/25/19 05:50 Triglycerides 92 mg/dL (2-149) 02/18/19 18:10 Cholesterol 82 mg/dL (50-199) 02/18/19 18:10 LDL Cholesterol Direct 54 mg/dL (50-130) 02/18/19 18:10 HDL Cholesterol 25 mg/dL (40-59) L 02/18/19 18:10 Cholesterol/HDL Ratio 3.28 % 02/18/19 18:10 Lipase 40 units/L (13-60) 02/22/19 05:13 Urine Color Ally (Yellow) 02/21/19 09:30 Urine Turbidity Clear (Clear) 02/21/19 09:30 Urine pH 5.0 (5.0-7.0) 02/21/19 09:30 Ur Specific [place] 1.012 (1.003-1.030) 02/21/19 09:30 Urine Protein <15 mg/dl mg/dL (Negative) 02/21/19 09:30 Urine Glucose (UA) Neg mg/dL (Negative) 02/21/19 09:30 Urine Ketones Neg mg/dL (Negative) 02/21/19 09:30 Urine Blood Mod (Negative) 02/21/19 09:30 Urine Nitrite Neg (Negative) 02/21/19 09:30 Urine Bilirubin Neg (Negative) 02/21/19 09:30 Urine Urobilinogen 4.0 mg/dL (<2.0) 02/21/19 09:30 Ur Leukocyte Esterase Neg (Negative) 02/21/19 09:30 Urine WBC (Auto) 5.0 /HPF (0.0-6.0) 02/21/19 09:30 Urine RBC (Auto) 2.0 /HPF (0.0-6.0) 02/21/19 09:30 U Epithel Cells (Auto) < 1.0 /HPF (0-13.0) 02/21/19 09:30 Urine Creatinine 103.9 mg/dL (0.1-20.0) H 02/21/19 09:27 Urine Sodium 10 mmol/L 02/21/19 09:27 Hepatitis A IgM Ab Non-reactive (NonReactive) 02/18/19 20:32 Hep Bs Antigen Non-reactive (Negative) 02/18/19 20:32 Hep B Core IgM Ab Non-reactive (NonReactive) 02/18/19 20:32 Hepatitis C Antibody Reactive (NonReactive) A 02/18/19 20:32 Active Medications - Current Medications Current Medications: Generic Name Dose Route Start Last Admin Trade Name Freq PRN Reason Stop Dose Admin Acetaminophen 650 mg 02/18/19 19:15 Tylenol PO Q4H PRN Pain MILD(1-3)/Fever >100.5/NORIEGA Acetaminophen/Hydrocodone Bitart 1 each 02/22/19 12:09 02/24/19 21:28 [place] 5/325 PO 1 each Q4H PRN Administration Pain, Moderate (4-6) Albuterol/Ipratropium 1 ampul 02/21/19 23:00 02/25/19 13:57 Duoneb *Not For Prn Use* IH 1 ampul Q6HRT JONATHAN Administration Aspirin 81 mg 02/20/19 10:00 02/25/19 10:32 Baby Aspirin PO 81 mg QDAY JONATHAN Administration Carvedilol 6.25 mg 02/19/19 22:00 02/25/19 10:32 Coreg PO 6.25 mg BID JONATHAN Administration Diphenhydramine HCl 25 mg 02/19/19 12:05 02/20/19 12:23 Benadryl IV 25 mg Q6H PRN Administration Itching Docusate Sodium 100 mg 02/23/19 10:00 02/25/19 10:31 Colace PO 100 mg BID JONATHAN Administration Enoxaparin Sodium 40 mg 02/22/19 10:00 02/25/19 10:31 Enoxaparin SUB-Q 40 mg QDAY@1000 JONATHAN Administration Hydromorphone HCl 2 mg 02/19/19 09:06 02/25/19 10:29 Dilaudid IV 2 mg Q4H PRN Administration Pain , Severe (7-10) Lisinopril 20 mg 02/23/19 18:00 02/25/19 10:32 Zestril PO 20 mg QDAY JONATHAN Administration Ondansetron HCl 4 mg 02/18/19 19:15 02/23/19 18:27 Zofran IV 4 mg Q3H PRN Administration Nausea And Vomiting Pantoprazole Sodium 40 mg 02/19/19 10:00 02/25/19 10:31 Protonix PO 40 mg QDAY JONATHAN Administration Polyethylene Glycol 17 gm 02/25/19 13:00 Miralax 3350 PO QDAY JONATHAN Potassium Chloride 40 meq 02/25/19 14:58 K-Dur PO 02/25/19 14:59 ONCE ONE Sodium Chloride 10 ml 02/18/19 22:00 02/25/19 10:30 Sodium Chloride Flush Syringe 10 Ml IV 10 ml BID JONATHAN Administration Sodium Chloride 10 ml 02/18/19 19:15 Sodium Chloride Flush Syringe 10 Ml IV PRN PRN LINE FLUSH Tamsulosin HCl 0.4 mg 02/25/19 13:00 02/25/19 12:46 Flomax PO 0.4 mg QDAY JONATHAN Administration Nutrition/Malnutrition Assess - Dietary Evaluation Nutrition/Malnutrition Findings: Nutrition Notes Start: 02/25/19 11:58 Freq: Status: Active Protocol: Document 02/25/19 11:58 SEBASTIAN (Rec: 02/25/19 12:01 SEBASTIAN [id number]) Co-Sign 02/25/19 11:58 KH Nutrition Notes Need for Assessment generated from: LOS Initial or Follow up Brief Note Subjective/Other Information Pt screened for LOS Pt stated he has been eating 100% of his meals and has a strong appetite. Minimum of two criteria No physical signs of malnutrition Nutrition Intervention Revisit per MD consult or patient Sign Off request:
[2019-02-25] MEDS ORDERED: POTASSIUM CHLORIDE ER 20 MEQ TAB PO ONE (16:00)
[2019-02-25] MEDS: POLYETHYLENE GLYCOL 3350 17 GM POWDER PO SCH (16:41)
[2019-02-25] MEDS: HYDROcodone/ACETAMINOPHEN 5-325 MG TAB PO PRN (21:31)
[2019-02-26] MEDS: IPRATROPIUM/ALBUTEROL SULFATE 3 ML AMPUL.NEB IH SCH ×3 (01:33→14:41)
[2019-02-26] MEDS: HYDROmorphone 2 MG/1 ML INJ IV PRN (01:42)
[2019-02-26] MEDS: HYDROcodone/ACETAMINOPHEN 5-325 MG TAB PO PRN ×2 (06:08→11:04)
[2019-02-26] MEDS: ENOXAPARIN 40 MG/0.4 ML INJ SUB-Q SCH (09:25)
[2019-02-26] MEDS: PANTOPRAZOLE 40 MG TAB PO SCH (09:25)
[2019-02-26] MEDS: ASPIRIN 81 MG TAB CHEW PO SCH (09:25)
[2019-02-26] MEDS: DOCUSATE SODIUM 100 MG CAP PO SCH (09:25)
[2019-02-26] MEDS: TAMSULOSIN 0.4 MG CAP PO SCH (09:25)
[2019-02-26] MEDS: CARVEDILOL 6.25 MG TAB PO SCH (09:26)
[2019-02-26] MEDS: POLYETHYLENE GLYCOL 3350 17 GM POWDER PO SCH (09:26)
[2019-02-26] MEDS: LISINOPRIL 20 MG TAB PO SCH (09:26)
[2019-02-26 11:34] LABS: Albumin 2.4 g/dL (3.9-5); Bilirubin,Direct 0.7 mg/dL (0-0.2)
--- NOTE | 2019-02-26 12:01 | Progress Note ---
Assessment and Plan The patient is stable from a cardiac standpoint and may be discharged home from our perspective. Continue current cardiac medications. Follow up with Dr. Baeza on 03/08/19 at 2 pm in [place]. The patient has been seen in conjunction with Dr. Pardo, who agrees with the assessment and plan. - Patient Problems (1) VAHE (acute kidney injury) Current Visit: Yes Status: Acute (2) Acute pancreatitis Current Visit: Yes Status: Acute (3) Cholelithiasis Current Visit: Yes Status: Acute (4) Elevated troponin Current Visit: Yes Status: Acute (5) Hepatitis C Current Visit: Yes Status: Chronic (6) Morbid obesity Current Visit: Yes Status: Chronic (7) Thrombocytopenia Current Visit: Yes Status: Acute (8) Aortic stenosis Current Visit: Yes Status: Chronic (9) CAD (coronary artery disease) Current Visit: Yes Status: Chronic Qualifiers: Coronary Disease-Associated Artery/Lesion type: [place] artery [place] vs. transplanted heart: [place] heart Associated angina: with other forms of angina Qualified Code(s): I25.118 - Atherosclerotic heart disease of [place] coronary artery with other forms of angina pectoris (10) H/O ETOH abuse Current Visit: Yes Status: Chronic (11) Hypertension Current Visit: Yes Status: Chronic Qualifiers: Hypertension type: essential hypertension Qualified Code(s): I10 - Essential (primary) hypertension (12) Stented coronary artery Current Visit: Yes Status: Chronic (13) Chronic liver disease Current Visit: No Status: Chronic Subjective Date of service: 02/26/19 Principal diagnosis: pancreatitis, hyperbilirubinemia Interval history: The patient is sitting up in bed in [facility]. He c/o abdominal tenderness, but has no cardiac complaints. He is not currently on telemetry. Objective Last Vital Signs Temp 98.2 F 02/26/19 05:36 Pulse 71 02/26/19 08:34 Resp 18 02/26/19 08:34 BP 165/71 02/26/19 09:26 Pulse Ox 95 02/26/19 09:08 - Physical Examination General: No Apparent Distress HEENT: Positive: PERRL, Normocephaly, Mucus Membranes Moist Neck: Positive: neck supple, trachea midline Cardiac: Positive: Reg Rate and Rhythm Lungs: Positive: Normal Exam Neuro: Positive: Grossly Intact Abdomen: Positive: Tender Skin: Negative: Rash Musculoskeletal: No Fluid Collection, No Pain Extremities: Present: normal. Absent: edema - Labs and Meds Cardiac Enzymes 02/26/19 Range/Units 10:39 AST 57 H (5-40) units/L Comprehensive Metabolic Panel 02/26/19 Range/Units 10:39 Direct Bilirubin 0.7 H (0-0.2) mg/dL Indirect Bilirubin 0.6 mg/dL AST 57 H (5-40) units/L ALT 30 (7-56) units/L Alkaline Phosphatase 80 (35-129) units/L Total Protein 5.9 L (6.3-8.2) g/dL Albumin 2.4 L (3.9-5) g/dL - Imaging and Cardiology EKG: report reviewed, image reviewed Echo: report reviewed (08/2014 showed EF 50-55%, LA mildly dilated, mild with mean gradient 13mmHg. ) Cardiac cath: report reviewed (OP LHC done at [place] on 01/28/2019 (indicated due to abnormal stress test) showed nonobstructive CAD (left main, LAD and circ <10% luminal irregularities, mid RCA 60% stenosis, distal RCA 80% stenosis. ) - EKG Sinus rhythms and dysrhythmias: sinus rhythm
[2019-02-26] MEDS ORDERED: HYDROCORTISONE 2.5% RECT CREAM 28.35 GM PR PRN (12:27)
[2019-02-26] MEDS ORDERED: WITCH HAZEL/ GLYCERIN PAD TP PRN (12:27)
--- NOTE | 2019-02-26 12:32 | Gastroenterology Progress Note ---
<MAGGIE CHU - Last Filed: 02/26/19 13:19> Assessment and Plan 1.gallstone pancreatitis -afebrile -WBC and H/H WNL -lipase now WNL -LFTs- T.clotilde 1.60 (trended down), AST 55, ALT 30, alk phos 109 -s/p cholecystectomy with IOC showing a filling defect at CD/CBD junction but nonmobile (Films suspicious, but not read as such by Radiologist) -clinically, patient is stable w/o abd pain or N/V. Tolerating diet. -no plan for ERCP at this time (Discussed options with pt, of observation, vs ERCP yesterday including risks and benefits to which he opts for observation). -continue to trend labs and supportive care 2.constipation -etiology likely 2/2 recent narcotics, surgery, etc. -give 1 bottle magnesium citrate now and continue daily regimen with miralax -topical ointments for hemorroids (proctosol) -no further GI recommendations at this time -once patient has a BM, okay to be d/c per GI standpoint 3.liver disease - CT with fatty liver but no varices or ascites; platelents low, and chronic elevated LFTs. Would be considered Uriah A (at worst) 4.hepatitis C -Hx of prior treatment failure with IFN; no further treatment 5.H/o ETOH abuse -Sober x 3 years per patient; no signs of DTs. I feel no need for CIWA at present Subjective Date of service: 02/26/19 Principal diagnosis: pancreatitis, hyperbilirubinemia Interval history: Patient resting in bed this am w/o acute distress. Denies abd pain or N/V but has continued c/o constipation/hemorrhoids with no BM yesterday after being given supp/miralax. Tolerating diet w/o difficulty. Objective - Constitutional Vitals: Temp Pulse Resp BP Pulse Ox 98.2 F 71 18 165/71 95 02/26/19 05:36 02/26/19 08:34 02/26/19 08:34 02/26/19 09:26 02/26/19 09:08 General appearance: no acute distress, obese - Respiratory Respiratory effort: normal - Cardiovascular Rhythm: regular - Gastrointestinal General gastrointestinal: Present: soft, tender (slight TTP (surgical sites)), non-distended, normal bowel sounds, other (obese, +surgical sites) - Neurologic Neurological: alert and oriented x3 - Labs CBC & Chem 7: 02/23/19 06:08 02/25/19 05:50 Labs: Laboratory Results - last 24 hr 02/26/19 10:39 Total Bilirubin 1.30 H Direct Bilirubin 0.7 H Indirect Bilirubin 0.6 AST 57 H ALT 30 Alkaline Phosphatase 80 Total Protein 5.9 L Albumin 2.4 L Albumin/Globulin Ratio 0.7 <KAREN NDIAYE R - Last Filed: 02/26/19 13:39> Assessment and Plan Pt doing well. LFTs stable with improved T Bili. Constipation as per above and per Hospitalist. Will sign off. Thanks. Objective - Constitutional Vitals: Temp Pulse Resp BP Pulse Ox 98.2 F 71 18 165/71 95 02/26/19 05:36 02/26/19 08:34 02/26/19 08:34 02/26/19 09:26 02/26/19 09:08 - Labs CBC & Chem 7: 02/23/19 06:08 02/25/19 05:50 Labs: Laboratory Results - last 24 hr 02/26/19 10:39 Total Bilirubin 1.30 H Direct Bilirubin 0.7 H Indirect Bilirubin 0.6 AST 57 H ALT 30 Alkaline Phosphatase 80 Total Protein 5.9 L Albumin 2.4 L Albumin/Globulin Ratio 0.7
[2019-02-26] MEDS ORDERED: HYDROCORTISONE 2.5% RECT CREAM 28.35 GM PR ONE (13:27)
[2019-02-26] MEDS ORDERED: MAGNESIUM CITRATE 300 ML ORAL LIQD PO ONE (13:29)
[2019-02-26 14:49] VITALS: BP 153/70
[2019-02-26] MEDS ORDERED: BISACODYL 10 MG RECT SUPP PR ONE (16:49)
== END 2019-02-26 15:11 | disposition home or self-care (01) | DRG 417 ==
LOC: ED 14:05 → 3A 18:35
PROVIDERS: ADMIT Internal Medicine; ATTEND Internal Medicine
PROC: 0FT44ZZ Resection of Gallbladder, Percutaneous Endoscopic Approach (ICD-10-PCS; principal; 2019-02-24)
PROC: 8E0W4CZ Robotic Assisted Procedure of Trunk Region, Percutaneous Endoscopic Approach (ICD-10-PCS; 2019-02-24)
PROC: BF101ZZ Fluoroscopy of Bile Ducts using Low Osmolar Contrast (ICD-10-PCS; 2019-02-24)
DX: K80.12 Calculus of gallbladder with acute and chronic cholecystitis without obstruction (principal); K85.10 Biliary acute pancreatitis without necrosis or infection; N17.0 Acute kidney failure with tubular necrosis; D75.1 Secondary polycythemia; E87.6 Hypokalemia; I10 Essential (primary) hypertension; K21.0 Gastro-esophageal reflux disease with esophagitis; E78.2 Mixed hyperlipidemia; B19.20 Unspecified viral hepatitis C without hepatic coma; I25.118 Atherosclerotic heart disease of native coronary artery with other forms of angina pectoris; D69.6 Thrombocytopenia, unspecified; F10.21 Alcohol dependence, in remission; E86.0 Dehydration; I35.0 Nonrheumatic aortic (valve) stenosis; K76.0 Fatty (change of) liver, not elsewhere classified; K74.60 Unspecified cirrhosis of liver; E66.01 Morbid (severe) obesity due to excess calories; Z68.43 Body mass index [BMI] 50.0-59.9, adult; Z82.49 Family history of ischemic heart disease and other diseases of the circulatory system; Z95.5 Presence of coronary angioplasty implant and graft; Z79.899 Other long term (current) drug therapy
CPT/HCPCS: 36415; 71045; 74177; 74300; 76705; 76770; 80053; 80061; 80074; 80076; 81001; 82247; 82248; 82570; 83036; 83690; 83735; 84300; 84484; 85025; 85027; 85610; 85730; 87040; 88304; 90686; 93005; 93010; 93306; 93975; 94640; 94760; 96360; G0378; J0360; J0690; J1170; J1200; J1650; J2250; J2270; J2405; J2704; J2710; J3010; J3480; J7030; J7040; J7120; Q9967

== ENCOUNTER 2021-08-28 03:00 | Observation (INO) | payer MEDICARE ==
[2021-08-28] MEDS ORDERED: ONDANSETRON 4 MG/2 ML INJ IV ONE (03:19)
[2021-08-28] MEDS ORDERED: MORPHINE 4 MG/1 ML INJ IV ONE (03:19)
[2021-08-28 04:07] LABS: Bilirubin,Urine NEG (Negative); Blood,Urine MOD (Negative); Color,Urine Yellow (Yellow); Mucus,Urine FEW /HPF; Urobilinogen,Urine < 2.0 mg/dL (<2.0)
[2021-08-28 04:57] LABS: Hematocrit 41.7 % (35.5-45.6); Hemoglobin 14.3 gm/dl (11.8-15.2); Mean Corpuscular HGB Conc 34 % (32-34); Mean Corpuscular Volume 105 fl (84-94); Platelet Count 114 K/mm3 (140-440); Red Blood Count 3.99 M/mm3 (3.65-5.03); Red Cell Distribution Width 15.6 % (13.2-15.2)
[2021-08-28 05:14] LABS: Alanine Aminotransferase 30 units/L (7-56); Albumin 2.9 g/dL (3.9-5); Bilirubin,Direct 0.7 mg/dL (0-0.2); Blood Urea Nitrogen 8 mg/dL (9-20); Hemolysis Index 3
[2021-08-28 05:29] LABS: BUN/Creatinine Ratio 13
[2021-08-28 05:50] LABS: Basophils % (Manual) 0 % (0.0-1.8); Total Cells Counted 100
[2021-08-28 05:54] LABS: Platelet Estimate Consistent w Auto; RBC Morphology Normal
[2021-08-28] MEDS ORDERED: SODIUM CHLORIDE 0.9% 1000 ML 1,000 ML IV ONE ×2 (06:16→07:55)
[2021-08-28] MEDS ORDERED: fentaNYL 100 MCG/2 ML INJ IV ONE (06:41)
--- NOTE | 2021-08-28 06:46 | Emergency Department Report ---
HPI - General Chief Complaint: Abdominal Pain Time Seen by Provider: 08/28/21 06:13 - HPI HPI: Room 21 The patient is a 66-year-old male present with a chief complaint of abdominal pain. Patient states he recently began drinking again and for the past 1 to 2 weeks he has had epigastric abdominal pain has been constant and cramping in nature associated with nausea vomiting and diarrhea. Patient does have subjective fever. Patient currently gives his abdominal pain a score of 8/10. Patient admits to history of pancreatitis ED Past Medical Hx - Past Medical History Previous Medical History?: Yes Hx Hypertension: Yes Hx Liver Disease: Yes (Hep C) Hx Arthritis: Yes Hx Headaches / Migraines: Yes Additional medical history: ALCOHOLIC. gallstones. obesity. CAD - Surgical History Hx Coronary Stent: Yes (1 cardiac stent, 05/2013) Additional Surgical History: L leg fracture repair (). cardiac stent ~2014 - Family History Family history: no significant - Social History Smoking Status: Former Smoker (None x15 years) Substance Use Type: None (Denies illicit drug use), Alcohol - Medications Home Medications: Home Medications Medication Instructions Recorded Confirmed Last Taken Type HYDROcodone/APAP 5-325 [[place] 1 each PO Q4H PRN #14 tablet 02/23/19 07/31/21 Unknown Rx 5-325 mg TAB] Hydrocortisone 2.5% [Proctosol-Hc] 1 applic NV Q8H PRN #1 tube 02/26/19 07/31/21 Unknown Rx oxyCODONE /ACETAMINOPHEN [Percocet 1 tab PO Q6HR PRN #14 tablet 02/26/19 07/31/21 Unknown Rx 5/325] Aspirin EC [Halfprin EC] 81 mg PO QDAY 30 Days #30 tablet. 08/04/21 Unknown Rx AtorvaSTATin [Lipitor] 20 mg PO QHS 30 Days #30 tablet 08/04/21 Unknown Rx Folic Acid [Folvite] 1 mg PO DAILY #30 tablet 08/04/21 Unknown Rx Glycerin/ Witch Barbara Pad [Tucks 1 each TP PRN PRN 30 Days #1 box 08/04/21 Unknown Rx Pad] LORazepam [Ativan] 1 mg PO TID PRN 15 Days #30 tablet 08/04/21 Unknown Rx Pantoprazole [Protonix TAB] 40 mg PO QDAY 30 Days #30 tablet 08/04/21 Unknown Rx Tamsulosin [Flomax] 0.4 mg PO QDAY 30 Days #30 capsule 08/04/21 Unknown Rx Thiamine [Vitamin B-1] 100 mg PO QDAY #30 tablet 08/04/21 Unknown Rx carvediloL [Coreg] 6.25 mg PO BID #60 tablet 08/04/21 Unknown Rx carvediloL [Coreg] 6.25 mg PO BID 30 Days #60 tablet 08/04/21 Unknown Rx lisinopriL [Zestril TAB] 20 mg PO QDAY #30 08/04/21 Unknown Rx lisinopriL [Zestril TAB] 20 mg PO QDAY #30 tablet 08/04/21 Unknown Rx polyethylene glycoL 3350 [Miralax 17 gm PO QDAY 30 Days #30 powd.pack 08/04/21 Unknown Rx 3350] traMADoL [Ultram 50 MG tab] 50 mg PO Q6HR PRN #30 tablet 08/04/21 Unknown Rx ED Review of Systems ROS: Stated complaint: ABDOMINAL PAIN Other details as noted in HPI Constitutional: fever (Subjective) Eyes: denies: eye pain ENT: denies: throat pain Respiratory: no symptoms reported Cardiovascular: denies: chest pain Endocrine: no symptoms reported Gastrointestinal: abdominal pain, nausea, vomiting, diarrhea Genitourinary: denies: dysuria Musculoskeletal: denies: back pain Neurological: denies: headache Physical Exam - Physical Exam Vital Signs: Vital Signs 08/28/21 08/28/21 08/28/21 03:09 03:25 03:30 Temperature 98.3 F Pulse Rate 70 67 Respiratory 16 17 17 Rate Blood Pressure 158/76 170/93 O2 Sat by Pulse 95 95 94 Oximetry 08/28/21 08/28/21 08/28/21 03:46 03:48 04:00 Temperature Pulse Rate 67 63 Respiratory 16 14 19 Rate Blood Pressure 164/81 147/77 O2 Sat by Pulse 94 94 Oximetry 08/28/21 08/28/21 08/28/21 04:16 04:18 04:30 Temperature Pulse Rate 67 71 Respiratory 16 18 12 Rate Blood Pressure 147/77 147/77 O2 Sat by Pulse 93 Oximetry 08/28/21 04:46 Temperature Pulse Rate 73 Respiratory 20 Rate Blood Pressure 153/79 O2 Sat by Pulse Oximetry Physical Exam: GENERAL: The patient is well-developed well-nourished male lying on stretcher not appearing to be in acute distress. [] HEENT: Normocephalic. Atraumatic. Extraocular motions are intact. Patient has moist mucous membranes. NECK: Supple. Trachea midline CHEST/LUNGS: Clear to auscultation. There is no respiratory distress noted. HEART/CARDIOVASCULAR: Regular. There is no tachycardia. There is a 2/6 systolic murmur ABDOMEN: Abdomen is soft, epigastric tenderness to palpation. Patient has normal bowel sounds. There is no abdominal distention. SKIN: There is no rash. There is no edema. There is no diaphoresis. NEURO: The patient is awake, alert, and oriented. The patient is cooperative. The patient has no focal neurologic deficits. The patient has normal speech. GCS 15 There is no evidence of acute injury. ED Course Vital Signs 08/28/21 08/28/21 08/28/21 03:09 03:25 03:30 Temperature 98.3 F Pulse Rate 70 67 Respiratory 16 17 17 Rate Blood Pressure 158/76 170/93 O2 Sat by Pulse 95 95 94 Oximetry 08/28/21 08/28/21 08/28/21 03:46 03:48 04:00 Temperature Pulse Rate 67 63 Respiratory 16 14 19 Rate Blood Pressure 164/81 147/77 O2 Sat by Pulse 94 94 Oximetry 08/28/21 08/28/21 08/28/21 04:16 04:18 04:30 Temperature Pulse Rate 67 71 Respiratory 16 18 12 Rate Blood Pressure 147/77 147/77 O2 Sat by Pulse 93 Oximetry 08/28/21 04:46 Temperature Pulse Rate 73 Respiratory 20 Rate Blood Pressure 153/79 O2 Sat by Pulse Oximetry - Reevaluation(s) Reevaluation #1: 08/28/21 08:49 Patient states his pain remains unchanged despite 3 rounds of pain medication. Will admit for pain control ED Medical Decision Making - Lab Data Result diagrams: 08/28/21 03:54 08/28/21 03:54 Laboratory Tests 08/28/21 08/28/21 08/28/21 03:54 03:54 Unknown WBC 6.7 RBC 3.99 Hgb 14.3 Hct 41.7 MCV 105 H MCH 36 H MCHC 34 RDW 15.6 H Plt Count 114 L [place] % (Auto) Cot Assembler Add Manual Diff Complete Total Counted 100 Seg Neuts % (Manual) 72.0 H Band Neutrophils % 0 Lymphocytes % (Manual) 20.0 Reactive Lymphs % (Man) 0 Monocytes % (Manual) 3.0 Eosinophils % (Manual) 5.0 H Basophils % (Manual) 0 Metamyelocytes % 0 Myelocytes % 0 Promyelocytes % 0 Blast Cells % 0 Nucleated RBC % Not Reportable Seg Neutrophils # Man 4.8 Band Neutrophils # 0.0 Lymphocytes # (Manual) 1.3 Abs React Lymphs (Man) 0.0 Monocytes # (Manual) 0.2 Eosinophils # (Manual) 0.3 Basophils # (Manual) 0.0 Metamyelocytes # 0.0 Myelocytes # 0.0 Promyelocytes # 0.0 Blast Cells # 0.0 WBC Morphology Not Reportable Hypersegmented Neuts Not Reportable Hyposegmented Neuts Not Reportable Hypogranular Neuts Not Reportable Smudge Cells Not Reportable Toxic Granulation Not Reportable Toxic Vacuolation Not Reportable Dohle Bodies Not Reportable Pelger-Huet Anomaly Not Reportable Jose C Rods Not Reportable Platelet Estimate Consistent w auto Clumped Platelets Not Reportable Plt Clumps, EDTA Not Reportable Large Platelets Not Reportable Giant Platelets Not Reportable Platelet Satelliting Not Reportable Plt Morphology Comment Not Reportable RBC Morphology Normal Dimorphic RBCs Not Reportable Polychromasia Not Reportable Hypochromasia Not Reportable Poikilocytosis Not Reportable Anisocytosis Not Reportable Microcytosis Not Reportable Macrocytosis Not Reportable Spherocytes Not Reportable Pappenheimer Bodies Not Reportable Sickle Cells Not Reportable Target Cells Not Reportable Tear Drop Cells Not Reportable Ovalocytes Not Reportable Helmet Cells Not Reportable [place] Bodies Not Reportable [place] Rings Not Reportable Thorp Cells Not Reportable Bite Cells Not Reportable Crenated Cell Not Reportable Elliptocytes Not Reportable Acanthocytes (Spur) Not Reportable Rouleaux Not Reportable Hemoglobin C Crystals Not Reportable Schistocytes Not Reportable Malaria parasites Not Reportable Leo Bodies Not Reportable Hem Pathologist Commnt No Sodium 139 Potassium 4.5 Chloride 105.1 Carbon Dioxide 22 Anion Gap 16 BUN 8 L Creatinine 0.6 L Estimated GFR > 60 BUN/Creatinine Ratio 13 Glucose 113 H Calcium 8.0 L Total Bilirubin 1.60 H Direct Bilirubin 0.7 H Indirect Bilirubin 0.9 AST 59 H ALT 30 Alkaline Phosphatase 90 Total Protein 6.3 Albumin 2.9 L Albumin/Globulin Ratio 0.9 Lipase 62 H Urine Color Yellow Urine Turbidity Clear Urine pH 5.0 Ur Specific [place] 1.005 Urine Protein 100 mg/dl Urine Glucose (UA) Neg Urine Ketones Neg Urine Blood Mod Urine Nitrite Neg Urine Bilirubin Neg Urine Urobilinogen < 2.0 Ur Leukocyte Esterase Neg Urine WBC (Auto) 2.0 Urine RBC (Auto) 2.0 Urine Mucus Few - Differential Diagnosis Chronic pancreatitis, gastritis, alcoholic hepatitis, cirrhosis Critical care attestation.: If time is entered above; I have spent that time in minutes in the direct care of this critically ill patient, excluding procedure time. ED Disposition Clinical Impression: Alcohol abuse, Acute abdominal pain, Nausea vomiting and diarrhea, Intractable pain, Acute on chronic pancreatitis Disposition: ADMITTED INPATIENT Is pt being admited?: Yes Does the pt Need Aspirin: No Condition: Fair Referrals: PRIMARY CARE, [Primary Care Provider] - 3-5 Days Time of Disposition: 08:53 (Care transferred to hospitalist Dr. Chavarria (discussed with Dr. Sow))
[2021-08-28] MEDS ORDERED: HYDROmorphone 1 MG/1 ML INJ IV ONE (07:52)
--- NOTE | 2021-08-28 09:29 | History and Physical Report ---
History of Present Illness History of present illness: HPI: 66-year-old male with past medical history of pancreatitis, hep C, hypertension, CAD, alcoholism presenting to our facility with complaint of 8 out of 10 abdominal pain. He states his abd pain is localized to his epigastric region and associated with intractable nausea and vomiting. Patient states he starting drinking alcohol heavily again after his mother 2 weeks ago. He states he has been in a depressed mood and used alcohol to cope. He denies suicidality or intention for self harm. Remainder of ROS negative except for stated above. Of note the patient has a history of gallstone pancreatitis in 2019 s/p cholecystectomy. He was recently 4 weeks ago for similar complaint and was treated as pancreatitis with IV fluids/ pain control and uneventfully discharged. PMHx:pancreatitis, cirrhosis, esophageal varices, untreated hep C, hypertension, CAD, alcoholism, migraine, morbid obesity PSHx: CAD status post PCI with 1 stent placed in 2013, left leg fracture status post repair in , cholecystectomy 2018 FHx: Reviewed noncontributory SHx: Tobacco use-former ETOH Use-current, significant alcohol use Recreational Drug Use-denies Medications and Allergies Allergies Allergy/AdvReac Type Severity Reaction Status Date / Time No Known Allergies Allergy Verified 07/24/14 10:24 Home Medications Medication Instructions Recorded Confirmed Last Taken Type HYDROcodone/APAP 5-325 [[place] 1 each PO Q4H PRN #14 tablet 02/23/19 07/31/21 Unknown Rx 5-325 mg TAB] Hydrocortisone 2.5% [Proctosol-Hc] 1 applic [place] Q8H PRN #1 tube 02/26/19 07/31/21 Unknown Rx oxyCODONE /ACETAMINOPHEN [Percocet 1 tab PO Q6HR PRN #14 tablet 02/26/19 07/31/21 Unknown Rx 5/325] Aspirin EC [Halfprin EC] 81 mg PO QDAY 30 Days #30 tablet. 08/04/21 Unknown Rx AtorvaSTATin [Lipitor] 20 mg PO QHS 30 Days #30 tablet 08/04/21 Unknown Rx Folic Acid [Folvite] 1 mg PO DAILY #30 tablet 08/04/21 Unknown Rx Glycerin/ Witch Barbara Pad [Tucks 1 each TP PRN PRN 30 Days #1 box 08/04/21 Unknown Rx Pad] LORazepam [Ativan] 1 mg PO TID PRN 15 Days #30 tablet 08/04/21 Unknown Rx Pantoprazole [Protonix TAB] 40 mg PO QDAY 30 Days #30 tablet 08/04/21 Unknown Rx Tamsulosin [Flomax] 0.4 mg PO QDAY 30 Days #30 capsule 08/04/21 Unknown Rx Thiamine [Vitamin B-1] 100 mg PO QDAY #30 tablet 08/04/21 Unknown Rx carvediloL [Coreg] 6.25 mg PO BID #60 tablet 08/04/21 Unknown Rx carvediloL [Coreg] 6.25 mg PO BID 30 Days #60 tablet 08/04/21 Unknown Rx lisinopriL [Zestril TAB] 20 mg PO QDAY #30 08/04/21 Unknown Rx lisinopriL [Zestril TAB] 20 mg PO QDAY #30 tablet 08/04/21 Unknown Rx polyethylene glycoL 3350 [Miralax 17 gm PO QDAY 30 Days #30 powd.pack 08/04/21 Unknown Rx 3350] traMADoL [Ultram 50 MG tab] 50 mg PO Q6HR PRN #30 tablet 08/04/21 Unknown Rx Active Meds: Active Medications Sodium Chloride (Nacl 0.9% 1000 Ml) 1,000 mls @ 125 mls/hr IV ONCE ONE Stop: 08/28/21 15:54 Last Admin: 08/28/21 08:15 Dose: 125 mls/hr Review of Systems All systems: negative (Except for stated in HPI) Exam - Physical Exam Narrative exam: Physical Exam: VITAL SIGNS: Reviewed. GENERAL: The patient appears normally developed, Vital signs as documented. elevated BMI, descheveled. HEAD: No signs of head trauma. EYES: Pupils are equal. Extraocular motions intact. EARS: Hearing grossly intact. MOUTH: Oropharynx is normal. NECK: No adenopathy, no JVD. CHEST: Chest with clear breath sounds bilaterally. No wheezes, rales, or rhonchi. CARDIAC: Regular rate and rhythm. S1 and S2, without murmurs, gallops, or rubs. VASCULAR: No Edema. Peripheral pulses normal and equal in all extremities. ABDOMEN: mild tenderness in epigastric region. MUSCULOSKELETAL: Good range of motion of all major joints. Extremities without clubbing, cyanosis or edema. NEUROLOGIC EXAM: Alert and oriented x 4. no focal sensory or strength deficits. PSYCHIATRIC: Mood normal. SKIN: detail exam as documented in skin assessment - Constitutional Vitals: Temp Pulse Resp BP Pulse Ox 98.3 F 74 11 L 170/90 95 08/28/21 03:09 08/28/21 07:16 08/28/21 07:16 08/28/21 07:16 08/28/21 07:16 Results - Labs CBC & Chem 7: 08/28/21 03:54 08/28/21 03:54 Labs: Laboratory Last Values WBC 6.7 K/mm3 (4.5-11.0) 08/28/21 03:54 RBC 3.99 M/mm3 (3.65-5.03) 08/28/21 03:54 Hgb 14.3 gm/dl (11.8-15.2) 08/28/21 03:54 Hct 41.7 % (35.5-45.6) 08/28/21 03:54 MCV 105 fl (84-94) H 08/28/21 03:54 MCH 36 pg (28-32) H 08/28/21 03:54 MCHC 34 % (32-34) 08/28/21 03:54 RDW 15.6 % (13.2-15.2) H 08/28/21 03:54 Plt Count 114 K/mm3 (140-440) L 08/28/21 03:54 [place] % (Auto) [employer] Teacher 08/28/21 03:54 Add Manual Diff Complete 08/28/21 03:54 Total Counted 100 08/28/21 03:54 Seg Neuts % (Manual) 72.0 % (40.0-70.0) H 08/28/21 03:54 Band Neutrophils % 0 % 08/28/21 03:54 Lymphocytes % (Manual) 20.0 % (13.4-35.0) 08/28/21 03:54 Reactive Lymphs % (Man) 0 % 08/28/21 03:54 Monocytes % (Manual) 3.0 % (0.0-7.3) 08/28/21 03:54 Eosinophils % (Manual) 5.0 % (0.0-4.3) H 08/28/21 03:54 Basophils % (Manual) 0 % (0.0-1.8) 08/28/21 03:54 Metamyelocytes % 0 % 08/28/21 03:54 Myelocytes % 0 % 08/28/21 03:54 Promyelocytes % 0 % 08/28/21 03:54 Blast Cells % 0 % 08/28/21 03:54 Nucleated RBC % Not Reportable 08/28/21 03:54 Seg Neutrophils # Man 4.8 K/mm3 (1.8-7.7) 08/28/21 03:54 Band Neutrophils # 0.0 K/mm3 08/28/21 03:54 Lymphocytes # (Manual) 1.3 K/mm3 (1.2-5.4) 08/28/21 03:54 Abs React Lymphs (Man) 0.0 K/mm3 08/28/21 03:54 Monocytes # (Manual) 0.2 K/mm3 (0.0-0.8) 08/28/21 03:54 Eosinophils # (Manual) 0.3 K/mm3 (0.0-0.4) 08/28/21 03:54 Basophils # (Manual) 0.0 K/mm3 (0.0-0.1) 08/28/21 03:54 Metamyelocytes # 0.0 K/mm3 08/28/21 03:54 Myelocytes # 0.0 K/mm3 08/28/21 03:54 Promyelocytes # 0.0 K/mm3 08/28/21 03:54 Blast Cells # 0.0 K/mm3 08/28/21 03:54 WBC Morphology Not Reportable 08/28/21 03:54 Hypersegmented Neuts Not Reportable 08/28/21 03:54 Hyposegmented Neuts Not Reportable 08/28/21 03:54 Hypogranular Neuts Not Reportable 08/28/21 03:54 Smudge Cells Not Reportable 08/28/21 03:54 Toxic Granulation Not Reportable 08/28/21 03:54 Toxic Vacuolation Not Reportable 08/28/21 03:54 Dohle Bodies Not Reportable 08/28/21 03:54 Pelger-Huet Anomaly Not Reportable 08/28/21 03:54 Jose C Rods Not Reportable 08/28/21 03:54 Platelet Estimate Consistent w auto 08/28/21 03:54 Clumped Platelets Not Reportable 08/28/21 03:54 Plt Clumps, EDTA Not Reportable 08/28/21 03:54 Large Platelets Not Reportable 08/28/21 03:54 Giant Platelets Not Reportable 08/28/21 03:54 Platelet Satelliting Not Reportable 08/28/21 03:54 Plt Morphology Comment Not Reportable 08/28/21 03:54 RBC Morphology Normal 08/28/21 03:54 Dimorphic RBCs Not Reportable 08/28/21 03:54 Polychromasia Not Reportable 08/28/21 03:54 Hypochromasia Not Reportable 08/28/21 03:54 Poikilocytosis Not Reportable 08/28/21 03:54 Anisocytosis Not Reportable 08/28/21 03:54 Microcytosis Not Reportable 08/28/21 03:54 Macrocytosis Not Reportable 08/28/21 03:54 Spherocytes Not Reportable 08/28/21 03:54 Pappenheimer Bodies Not Reportable 08/28/21 03:54 Sickle Cells Not Reportable 08/28/21 03:54 Target Cells Not Reportable 08/28/21 03:54 Tear Drop Cells Not Reportable 08/28/21 03:54 Ovalocytes Not Reportable 08/28/21 03:54 Helmet Cells Not Reportable 08/28/21 03:54 [place] Bodies Not Reportable 08/28/21 03:54 [place] Rings Not Reportable 08/28/21 03:54 [place] Cells Not Reportable 08/28/21 03:54 Bite Cells Not Reportable 08/28/21 03:54 Crenated Cell Not Reportable 08/28/21 03:54 Elliptocytes Not Reportable 08/28/21 03:54 Acanthocytes (Spur) Not Reportable 08/28/21 03:54 Rouleaux Not Reportable 08/28/21 03:54 Hemoglobin C Crystals Not Reportable 08/28/21 03:54 Schistocytes Not Reportable 08/28/21 03:54 Malaria parasites Not Reportable 08/28/21 03:54 Leo Bodies Not Reportable 08/28/21 03:54 Hem Pathologist Commnt No 08/28/21 03:54 Sodium 139 mmol/L (137-145) 08/28/21 03:54 Potassium 4.5 mmol/L (3.6-5.0) 08/28/21 03:54 Chloride 105.1 mmol/L (98-107) 08/28/21 03:54 Carbon Dioxide 22 mmol/L (22-30) 08/28/21 03:54 Anion Gap 16 mmol/L 08/28/21 03:54 BUN 8 mg/dL (9-20) L 08/28/21 03:54 Creatinine 0.6 mg/dL (0.8-1.3) L 08/28/21 03:54 Estimated GFR > 60 ml/min 08/28/21 03:54 BUN/Creatinine Ratio 13 % 08/28/21 03:54 Glucose 113 mg/dL (75-100) H 08/28/21 03:54 Calcium 8.0 mg/dL (8.4-10.2) L 08/28/21 03:54 Total Bilirubin 1.60 mg/dL (0.1-1.2) H 08/28/21 03:54 Direct Bilirubin 0.7 mg/dL (0-0.2) H 08/28/21 03:54 Indirect Bilirubin 0.9 mg/dL 08/28/21 03:54 AST 59 units/L (5-40) H 08/28/21 03:54 ALT 30 units/L (7-56) 08/28/21 03:54 Alkaline Phosphatase 90 units/L (35-129) 08/28/21 03:54 Total Protein 6.3 g/dL (6.3-8.2) 08/28/21 03:54 Albumin 2.9 g/dL (3.9-5) L 08/28/21 03:54 Albumin/Globulin Ratio 0.9 % 08/28/21 03:54 Lipase 62 units/L (13-60) H 08/28/21 03:54 Urine Color Yellow (Yellow) 08/28/21 Unknown Urine Turbidity Clear (Clear) 08/28/21 Unknown Urine pH 5.0 (5.0-7.0) 08/28/21 Unknown Ur Specific [place] 1.005 (1.003-1.030) 08/28/21 Unknown Urine Protein 100 mg/dl mg/dL (Negative) 08/28/21 Unknown Urine Glucose (UA) Neg mg/dL (Negative) 08/28/21 Unknown Urine Ketones Neg mg/dL (Negative) 08/28/21 Unknown Urine Blood Mod (Negative) 08/28/21 Unknown Urine Nitrite Neg (Negative) 08/28/21 Unknown Urine Bilirubin Neg (Negative) 08/28/21 Unknown Urine Urobilinogen < 2.0 mg/dL (<2.0) 08/28/21 Unknown Ur Leukocyte Esterase Neg (Negative) 08/28/21 Unknown Urine WBC (Auto) 2.0 /HPF (0.0-6.0) 08/28/21 Unknown Urine RBC (Auto) 2.0 /HPF (0.0-6.0) 08/28/21 Unknown Urine Mucus Few /HPF 08/28/21 Unknown Assessment and Plan Assessment and plan: Assessment and Plan: #Acute gastritis due to alcohol poisoning - Suspect this is from alcohol poisoning, significant consumption of alcohol since passing of mother. - diarrhea, n/v. - IV fluids - IV pain control with morphine - IV zofran - doubt pancreatitis, lipase 64. CT abdomen pelvis from prior admission (07/30/2021) was inconclusive - Will do trial of clear liquid diet for dinner and observe overnight. Advance tomorrow for breakfast and potential d/c in early AM. #History of liver cirrhosis -Noted in CT abdomen and pelvis from 07/30/2021 - etiology likely from hepatitis c (noted to be positive 02/18/19), untreated and alcohol abuse - alcohol cessation #Alchoholic hepatitis - AST: 59, ,ALT: 30, tbili: 1.6, downtrended from 07/30/2021 admission - INR: 1.06, plt: 114 - counseled on alcohol cessation. #history of gallstone pancreatitis - gallstone pancreatitis in 2019 s/p cholecystectomy on that admission. #Distal esophageal varices -CT abdomen and pelvis from 07/30/2021 - no active hematemesis or blood in stool, hgb is stable. #History of nephrolithiasis -CT abdomen and pelvis from 07/30/2021 demonstrates bilateral nonobstructing renal calculi #Essential hypertension #Coronary artery disease status post PCI with 1 stent in 2013 #History of L1 fracture -Noted on CT abdomen pelvis #Hepatitis C -chronic, noted on 02/18/19 labs - recommend health department referral for OP tx. #moderate malnutrition - albumin 2.9, alcoholic #Migraines -noted #Anxiety/Depression - not suicidal and denies intention for self harm. - initiated on buspar #Alcohol Abuse -CIWA protocol +15 min alcohol abuse cessation counseling. Advised on quitting strategies as well as benefits to overall health. #Morbid Obesity + 30 min preventative health counseling on for balanced diet /regular exercise. #Advance care planning Disease education conducted, care plan discussed, diagnoses discussed, prognosis discussed, patient is full code, patient acknowledges understanding and agree with care plan, discussed with mother Rita Sorto about patient clinical course and answered all questionst to satisfaction. +30 minutes.
[2021-08-28] MEDS ORDERED: ONDANSETRON 4 MG/2 ML INJ IV PRN ×2 (09:32→10:00)
[2021-08-28] MEDS ORDERED: LORazepam 2 MG/ML VIAL IV PRN ×2 (10:00)
[2021-08-28] MEDS ORDERED: MORPHINE 2 MG/1 ML INJ IV PRN (10:00)
[2021-08-28] MEDS ORDERED: ACETAMINOPHEN 325 MG TAB PO PRN ×2 (10:00)
[2021-08-28] MEDS: MORPHINE 2 MG/1 ML INJ IV PRN (16:26)
[2021-08-28] MEDS: ENOXAPARIN 40 MG/0.4 ML INJ SUB-Q SCH (22:37)
[2021-08-28] MEDS: busPIRone 10 MG TAB PO SCH (22:37)
[2021-08-29] MEDS: MORPHINE 2 MG/1 ML INJ IV PRN ×4 (00:49→15:14)
[2021-08-29] MEDS: LACTATED RINGERS 1,000 ML IV SCH ×2 (00:50→09:58)
[2021-08-29 06:24] LABS: Hematocrit 38.2 % (35.5-45.6); Hemoglobin 12.7 gm/dl (11.8-15.2); Mean Corpuscular HGB Conc 33 % (32-34); Mean Corpuscular Volume 106 fl (84-94); Red Blood Count 3.62 M/mm3 (3.65-5.03); Red Cell Distribution Width 15.1 % (13.2-15.2)
[2021-08-29 06:27] LABS: Platelet Count 80 K/mm3 (140-440)
[2021-08-29 06:42] LABS: Blood Urea Nitrogen 13 mg/dL (9-20); Calcium 7.8 mg/dL (8.4-10.2); Hemolysis Index 5
[2021-08-29 06:48] LABS: BUN/Creatinine Ratio 22
[2021-08-29] MEDS: busPIRone 10 MG TAB PO SCH ×2 (08:40→10:58)
[2021-08-29] MEDS: ENOXAPARIN 40 MG/0.4 ML INJ SUB-Q SCH (09:51)
[2021-08-29 10:20] LABS: Total Cells Counted 100
[2021-08-29 10:23] LABS: Large Platelets Rare; Platelet Estimate Consistent w Auto
[2021-08-29 10:25] LABS: Anisocytosis Few
--- NOTE | 2021-08-29 13:17 | Discharge Summary ---
Providers - Providers Date of Admission: 08/28/21 09:35 Attending physician: LOUIS MARTINEZ MD 08/29/21 12:22 Consult to Physician [CONS] Routine Comment: Consulting Provider: MADELINE BOLES Physician Instructions: Reason For Exam: depression Primary care physician: BRANDS EDITOR Hospitalization Reason for admission: Abdominal pain Condition: Stable Hospital course: 66-year-old male with past medical history of pancreatitis, hep C, hypertension, CAD, alcoholism presenting to our facility with complaint of 8 out of 10 abdominal pain. He states his abd pain is localized to his epigastric region and associated with intractable nausea and vomiting. Patient states he starting drinking alcohol heavily again after his mother 2 weeks ago. He states he has been in a depressed mood and used alcohol to cope. He denies suicidality or intention for self harm. Remainder of ROS negative except for stated above. Of note the patient has a history of gallstone pancreatitis in 2019 s/p cholecystectomy. He was recently 4 weeks ago for similar complaint and was treated as pancreatitis with IV fluids/ pain control and uneventfully discharged. PMHx:pancreatitis, cirrhosis, esophageal varices, untreated hep C, hypertension, CAD, alcoholism, migraine, morbid obesity PSHx: CAD status post PCI with 1 stent placed in 2013, left leg fracture status post repair in , cholecystectomy 2018 FHx: Reviewed noncontributory #Acute gastritis due to alcohol poisoning - Suspect this is from alcohol poisoning, significant consumption of alcohol since passing of mother. Placed to psych for depression related to grief. Also had extensive discussion with the patient about need to quit alcohol use and enroll in AA he verbalized understanding. He is tolerating full liquid diet. I recommended to continue full liquid diet for 5 to 7 days and gradually increase to soft diet following that. - #History of liver cirrhosis -Noted in CT abdomen and pelvis from 07/30/2021 - etiology likely from hepatitis c (noted to be positive 02/18/19), untreated and alcohol abuse - alcohol cessation #Alchoholic hepatitis - AST: 59, ,ALT: 30, tbili: 1.6, downtrended from 07/30/2021 admission - INR: 1.06, plt: 114 - counseled on alcohol cessation. #history of gallstone pancreatitis - gallstone pancreatitis in 2019 s/p cholecystectomy on that admission. #Distal esophageal varices -CT abdomen and pelvis from 07/30/2021 - no active hematemesis or blood in stool, hgb is stable. #History of nephrolithiasis -CT abdomen and pelvis from 07/30/2021 demonstrates bilateral nonobstructing renal calculi #Essential hypertension #Coronary artery disease status post PCI with 1 stent in 2013 #History of L1 fracture -Noted on CT abdomen pelvis #Hepatitis C -chronic, noted on 02/18/19 labs - recommend health department referral for OP tx. #moderate malnutrition - albumin 2.9, alcoholic #Migraines -noted #Anxiety/Depression - not suicidal and denies intention for self harm. - initiated on buspar #Alcohol Abuse -CIWA protocol +15 min alcohol abuse cessation counseling. Advised on quitting strategies as well as benefits to overall health. #Thrombocytopenia -related to EtOH use disorder -morbid Obesity + 30 min preventative health counseling on for balanced diet /regular exercise. #Advance care planning Disease education conducted, care plan discussed, diagnoses discussed, prognosis discussed, patient is full code, patient acknowledges understanding and agree with care plan, discussed with mother Rita Sorto about patient clinical course and answered all questionst to satisfaction. +30 minutes. Case management is going to work on bringing home health AID or Homehealthcare with his insurance company I did try to put a call to his Sister Caroline. I left a message Disposition: 01 HOME / SELF CARE / HOMELESS Final Discharge Diagnosis (Prints w/discharge instructions): Acute gastritis due to alcohol poisoning Time spent for discharge: 35-minute Core Measure Documentation - Palliative Care Palliative Care/ Comfort Measures: Not Applicable - Core Measures Any of the following diagnoses?: none Exam - Physical Exam Narrative exam: VITAL SIGNS: Reviewed. GENERAL: The patient appears normally developed, Vital signs as documented. elevated BMI, descheveled. HEAD: No signs of head trauma. EYES: Pupils are equal. Extraocular motions intact. EARS: Hearing grossly intact. MOUTH: Oropharynx is normal. NECK: No adenopathy, no JVD. CHEST: Chest with clear breath sounds bilaterally. No wheezes, rales, or rhonchi. CARDIAC: Regular rate and rhythm. S1 and S2, without murmurs, gallops, or rubs. VASCULAR: No Edema. Peripheral pulses normal and equal in all extremities. ABDOMEN: mild tenderness in epigastric region. MUSCULOSKELETAL: Good range of motion of all major joints. Extremities without clubbing, cyanosis or edema. NEUROLOGIC EXAM: Alert and oriented x 4. no focal sensory or strength deficits. PSYCHIATRIC: Mood normal. SKIN: detail exam as documented in skin assessment - Constitutional Vitals: Temp Pulse Resp BP Pulse Ox 98.6 F 83 18 150/65 96 08/29/21 05:44 08/29/21 05:44 08/29/21 06:43 08/29/21 05:44 08/29/21 05:44 Plan Activity: advance as tolerated, fall precautions Diet: advance as tolerated (Full liquid diet x5 to 7 days and advance.) Special Instructions: record daily weights, record daily BP diary, physical therapy, occupational therapy, other (Must quit alcohol use) Plan of Treatment: Enroll in AA Follow up with: PRIMARY CAREMD [Primary Care Provider] - 3-5 Days MADELINE BOLES MD [Staff Physician] - 7 Days Prescriptions: busPIRone [Buspar] 10 mg PO BID #30 tablet Tamsulosin [Flomax] 0.4 mg PO QDAY 30 Days #30 capsule traMADoL [Ultram 50 MG tab] 50 mg PO Q6HR PRN #10 tablet PRN Reason: Pain Thiamine [Vitamin B-1] 100 mg PO QDAY #30 tablet
[2021-08-29 13:29] VITALS: BP 161/67
== END 2021-08-29 16:40 | disposition home or self-care (01) ==
LOC: ED 03:00 → 3A 09:35 → INTOOBSV 09:35 → 3A 20:29
PROVIDERS: ADMIT Internal Medicine; ATTEND Internal Medicine
DX: K29.00 Acute gastritis without bleeding (principal); K85.90 Acute pancreatitis without necrosis or infection, unspecified; K74.60 Unspecified cirrhosis of liver; K70.10 Alcoholic hepatitis without ascites; I85.00 Esophageal varices without bleeding; B19.20 Unspecified viral hepatitis C without hepatic coma; E44.0 Moderate protein-calorie malnutrition; G43.909 Migraine, unspecified, not intractable, without status migrainosus; F41.9 Anxiety disorder, unspecified; F32.9 Major depressive disorder, single episode, unspecified; F10.129 Alcohol abuse with intoxication, unspecified; E66.01 Morbid (severe) obesity due to excess calories; Z87.311 Personal history of (healed) other pathological fracture; Z87.442 Personal history of urinary calculi; Z87.891 Personal history of nicotine dependence; Z90.49 Acquired absence of other specified parts of digestive tract; Z79.899 Other long term (current) drug therapy; Z98.890 Other specified postprocedural states; Z95.1 Presence of aortocoronary bypass graft; Z68.45 Body mass index [BMI] 70 or greater, adult
CPT/HCPCS: 36415; 80048; 80076; 81001; 83690; 85007; 85025; 96361; 96372; 96374; 96375; 96376; 99284; G0378; J1170; J1650; J2270; J2405; J3010; J7030; J7120; 99285

== ENCOUNTER 2021-09-05 16:04 | Emergency (ER) | payer MEDICARE ==
[2021-09-05 19:43] LABS: Alanine Aminotransferase 22 units/L (7-56); Albumin 2.2 g/dL (3.9-5); BUN/Creatinine Ratio 11; Blood Urea Nitrogen 13 mg/dL (9-20); Calcium 7.5 mg/dL (8.4-10.2); Hemolysis Index 10
[2021-09-05 19:57] LABS: Basophils # (Auto) 0.2 K/mm3 (0.0-0.1); Basophils % (Auto) 1.9 % (0.0-1.8); Eosinophils % (Auto) 0.1 % (0.0-4.3); Hematocrit 30.5 % (35.5-45.6); Hemoglobin 10.6 gm/dl (11.8-15.2); Lymphocytes # (Auto) 1.3 K/mm3 (1.2-5.4); Lymphocytes % (Auto) 13.3 % (13.4-35.0); Mean Corpuscular HGB Conc 35 % (32-34); Mean Corpuscular Volume 104 fl (84-94); Monocytes # (Auto) 0.9 K/mm3 (0.0-0.8); Monocytes % (Auto) 8.9 % (0.0-7.3); Red Blood Count 2.94 M/mm3 (3.65-5.03)
[2021-09-05 19:58] LABS: Platelet Count 85 K/mm3 (140-440)
[2021-09-05] MEDS ORDERED: SODIUM CHLORIDE 0.9% 1000 ML 1,000 ML IV ONE (21:28)
[2021-09-05] MEDS ORDERED: HYDROcodone/ACETAMINOPHEN 5-325 MG TAB PO ONE ×2 (21:30→23:55)
[2021-09-05] MEDS ORDERED: ONDANSETRON 4 MG/2 ML INJ IV ONE ×2 (21:30→23:55)
[2021-09-06 00:58] LABS: Bilirubin,Urine NEG (Negative); Blood,Urine MOD (Negative); Color,Urine Amber (Yellow); Mucus,Urine 3+ /HPF
--- NOTE | 2021-09-06 07:07 | Emergency Department Report ---
Vomiting/Diarrhea - HPI Chief Complaint: Abdominal Pain Stated Complaint: STOMACH PAIN Time Seen by Provider: 09/06/21 06:56 Duration: 1 Day Severity: mild Nausea/Vomiting Severity: Mild Diarrhea Severity: Mild Pain Location: Right Sided Pain Severity: Moderate Symptoms: Yes Watery Diarrhea, Yes Able to Tolerate Fluids, No Bloody diarrhea, No Fever, No Recent Unusual Foods, No Recent Untreated Water, No Recent use of Antibiotics, No Family w/ Similar Symptoms, No Contacts w/ Similar Symptoms, No Rash, No Hematuria Other History: Patient is a 66-year-old male presenting with complaint of right- sided body pain with nausea, vomiting, diarrhea and generalized weakness beginning yesterday. ED Review of Systems ROS: Stated complaint: STOMACH PAIN Other details as noted in HPI Comment: All other systems reviewed and negative Constitutional: weakness Respiratory: denies: cough, shortness of breath, wheezing Cardiovascular: denies: chest pain, palpitations Gastrointestinal: abdominal pain, nausea, vomiting, diarrhea Genitourinary: denies: dysuria, frequency Musculoskeletal: denies: back pain, joint swelling Skin: denies: rash, lesions Neurological: denies: headache, weakness Psychiatric: denies: anxiety, depression ED Past Medical Hx - Past Medical History Hx Hypertension: Yes Hx Heart Attack/AMI: No Hx Congestive Heart Failure: No Hx Diabetes: No Hx Liver Disease: Yes (Hep C) Hx Sickle Cell Disease: No Hx Arthritis: Yes Hx Headaches / Migraines: Yes Hx Psychiatric Treatment: No Hx Asthma: No Hx COPD: No Hx Dementia: No Hx HIV: No Additional medical history: ALCOHOLIC. gallstones. obesity. CAD - Surgical History Hx Coronary Stent: Yes (1 cardiac stent, 05/2013) Hx Pacemaker: No Additional Surgical History: L leg fracture repair (1970s). cardiac stent ~2014 - Social History Smoking Status: Former Smoker - Medications Home Medications: Home Medications Medication Instructions Recorded Confirmed Last Taken Type Hydrocortisone 2.5% [Proctosol-Hc] 1 applic [place] Q8H PRN #1 tube 02/26/19 08/29/21 Unknown Rx Aspirin EC [Halfprin EC] 81 mg PO QDAY 30 Days #30 tablet. 08/04/21 08/29/21 U nknown Rx AtorvaSTATin [Lipitor] 20 mg PO QHS 30 Days #30 tablet 08/04/21 08/29/21 Unknown Rx Folic Acid [Folvite] 1 mg PO DAILY #30 tablet 08/04/21 08/29/21 Unknown Rx Glycerin/ Witch Barbara Pad [Tucks 1 each TP PRN PRN 30 Days #1 box 08/04/21 08/29/21 Unknown Rx Pad] Pantoprazole [Protonix TAB] 40 mg PO QDAY 30 Days #30 tablet 08/04/21 08/29/21 Unknown Rx carvediloL [Coreg] 6.25 mg PO BID #60 tablet 08/04/21 08/29/21 Unknown Rx lisinopriL [Zestril TAB] 20 mg PO QDAY #30 tablet 08/04/21 08/29/21 Unknown Rx polyethylene glycoL 3350 [Miralax 17 gm PO QDAY 30 Days #30 powd.pack 08/04/21 08/29/21 Unknown Rx 3350] Tamsulosin [Flomax] 0.4 mg PO QDAY 30 Days #30 capsule 08/29/21 Unknown Rx Thiamine [Vitamin B-1] 100 mg PO QDAY #30 tablet 08/29/21 Unknown Rx busPIRone [Buspar] 10 mg PO BID #30 tablet 08/29/21 Unknown Rx traMADoL [Ultram 50 MG tab] 50 mg PO Q6HR PRN #10 tablet 08/29/21 Unknown Rx Ondansetron [Zofran Odt] 4 mg PO Q8HR #10 tab.rapdis 09/06/21 Unknown Rx Vomiting Diarrhea Exam - Exam General: Vital signs noted. No distress. Alert and acting appropriately. HEENT: No Pharyngeal Erythema, No Pharyngeal Exudates Neck: No Adenopathy, No Rigidity Lungs: Yes Clear Lung Sounds, Yes Good Air Exchange, No Wheezes, No Stridor Heart exam: Regular: Yes, Murmur: No, Tachycardia: No Abdomen: Tenderness: No, Peritoneal Signs: No, Distention: No, Hyperactive Bowel sounds: No Skin exam: Rash: No, Edema: No, Normal turgor: Yes Neurologic: Alert and oriented, no deficits. Musculoskeletal: Unremarkable. ED Course Vital Signs 09/05/21 16:07 Temperature 98.1 F Pulse Rate 66 Blood Pressure 118/76 [Right] O2 Sat by Pulse 97 Oximetry ED Medical Decision Making - Lab Data Result diagrams: 09/05/21 19:39 09/05/21 18:24 - Medical Decision Making Patient given 1 L normal saline bolus, hydrocodone and IV Zofran. CBC and CMP grossly unremarkable. UA with 12 WBCs. On reassessment patient resting comfortably in bed. He has no peritoneal signs on examination. Vital signs are stable. Will discharge home on Keflex with return precautions. - Differential Diagnosis Viral gastroenteritis, irritable bowel syndrome Critical care attestation.: If time is entered above; I have spent that time in minutes in the direct care of this critically ill patient, excluding procedure time. ED Disposition Clinical Impression: Gastroenteritis, Right sided abdominal pain Disposition: 01 HOME / SELF CARE / HOMELESS Is pt being admited?: No Does the pt Need Aspirin: No Condition: Stable Instructions: Viral Gastroenteritis, Adult Referrals: LESLIE STROUD MD [Primary Care Provider] - 3-5 Days Time of Disposition: 07:09
[2021-09-06 08:36] VITALS: BP 128/71
== END 2021-09-06 08:36 | disposition home or self-care (01) ==
LOC: ED 16:04
DX: K52.9 Noninfective gastroenteritis and colitis, unspecified (principal); I10 Essential (primary) hypertension; M19.90 Unspecified osteoarthritis, unspecified site; G43.909 Migraine, unspecified, not intractable, without status migrainosus; Z87.891 Personal history of nicotine dependence
CPT/HCPCS: 36415; 80053; 81001; 83690; 85025; 87086; 96361; 96374; 99284; J2405; J7030

== ENCOUNTER 2021-09-21 13:15 | Emergency (ER) | payer MEDICARE ==
[2021-09-21] MEDS ORDERED: ASPIRIN 81 MG TAB CHEW PO ONE (19:08)
--- NOTE | 2021-09-21 19:37 | XRay Report ---
CHEST 1 VIEW INDICATION: Chest Pain. COMPARISON: 02/18/2019 FINDINGS: SUPPORT DEVICES: None. HEART: Within normal limits. LUNGS/PLEURA: No acute air space or interstitial disease. ADDITIONAL FINDINGS: None. IMPRESSION: 1. No acute findings. Signer Name: Michael De Leon MD Signed: 09/21/2021 7:32 PM Workstation Name: [id number]
[2021-09-21 20:24] LABS: Hematocrit 34.7 % (35.5-45.6); Hemoglobin 11.9 gm/dl (11.8-15.2); Mean Corpuscular HGB Conc 34 % (32-34); Mean Corpuscular Volume 103 fl (84-94); Red Blood Count 3.38 M/mm3 (3.65-5.03); Red Cell Distribution Width 15.1 % (13.2-15.2)
[2021-09-21 20:43] LABS: Alanine Aminotransferase 22 units/L (7-56); Albumin 2.4 g/dL (3.9-5); BUN/Creatinine Ratio 23; Blood Urea Nitrogen 18 mg/dL (9-20); Calcium 7.9 mg/dL (8.4-10.2); Hemolysis Index 21
[2021-09-21 20:45] LABS: Platelet Count 92 K/mm3 (140-440)
[2021-09-21] MEDS ORDERED: HYDROcodone/ACETAMINOPHEN 5-325 MG TAB PO ONE (21:47)
[2021-09-21] MEDS ORDERED: CALCIUM GLUCONATE 1,000 MG in SODIUM CHLORIDE 0.9% 100 ML IV ONE (22:32)
--- NOTE | 2021-09-21 23:05 | Emergency Department Report ---
ED Abdominal Pain HPI - General Chief Complaint: Chest Pain Stated Complaint: FLUID IN CHEST AREA/ABD Time Seen by Provider: 09/21/21 19:08 Source: patient Mode of arrival: Ambulatory Limitations: No Limitations - History of Present Illness Initial Comments: Patient is a 66-year-old male with history of cirrhosis presenting to ED with complaint of abdominal swelling and fluid on his lungs. States he was recently seen here and received paracentesis. He reports diffuse abdominal pain. He does not appear to be in any significant respiratory distress. States he is currently trying to follow-up with [facility] regarding his cirrhosis. Complaint: abdominal pain - Related Data Previous Rx's Medication Instructions Recorded Last Taken Type Folic Acid [Folvite] 1 mg PO DAILY #30 tablet 08/04/21 Unknown Rx Glycerin/ Witch Barbara Pad [Tucks 1 each TP PRN PRN 30 Days #1 box 08/04/21 Unknown Rx Pad] Tamsulosin [Flomax] 0.4 mg PO QDAY 30 Days #30 capsule 08/29/21 Unknown Rx Thiamine [Vitamin B-1] 100 mg PO QDAY #30 tablet 08/29/21 Unknown Rx busPIRone [Buspar] 10 mg PO BID #30 tablet 08/29/21 Unknown Rx Ondansetron [Zofran ODT TAB] 4 mg PO Q8HR #10 tab.rapdis 09/06/21 Unknown Rx Aspirin EC [Halfprin EC] 81 mg PO QDAY 30 Days #30 tablet. 09/19/21 Unknown Rx AtorvaSTATin [Lipitor] 20 mg PO QHS 30 Days #30 tablet 09/19/21 Unknown Rx Furosemide [Lasix TAB] 40 mg PO QDAY 30 Days #30 tablet 09/19/21 Unknown Rx Pantoprazole [Protonix TAB] 40 mg PO QDAY 30 Days #30 tablet 09/19/21 Unknown Rx Spironolactone [Aldactone] 100 mg PO QDAY 30 Days #30 tab 09/19/21 Unknown Rx carvediloL [Coreg] 6.25 mg PO BID #60 tablet 09/19/21 Unknown Rx Allergies Allergy/AdvReac Type Severity Reaction Status Date / Time No Known Allergies Allergy Verified 09/05/21 16:11 ED Review of Systems ROS: Stated complaint: FLUID IN CHEST AREA/ABD Other details as noted in HPI Comment: All other systems reviewed and negative Constitutional: no symptoms reported Respiratory: no symptoms reported Cardiovascular: chest pain Gastrointestinal: abdominal pain. denies: nausea Musculoskeletal: denies: back pain, joint swelling, arthralgia Skin: denies: rash, lesions Neurological: denies: headache, weakness, paresthesias Psychiatric: denies: anxiety, depression ED Past Medical Hx - Past Medical History Hx Hypertension: Yes Hx Heart Attack/AMI: No Hx Congestive Heart Failure: No Hx Diabetes: No Hx Liver Disease: Yes (Hep C) Hx Sickle Cell Disease: No Hx Arthritis: Yes Hx Headaches / Migraines: Yes Hx Psychiatric Treatment: No Hx Asthma: No Hx COPD: No Hx Dementia: No Hx HIV: No Additional medical history: ALCOHOLIC. gallstones. obesity. CAD - Surgical History Hx Coronary Stent: Yes (1 cardiac stent, 05/2013) Hx Pacemaker: No Additional Surgical History: L leg fracture repair (). cardiac stent ~2014 - Social History Smoking Status: Former Smoker - Medications Home Medications: Home Medications Medication Instructions Recorded Confirmed Last Taken Type Folic Acid [Folvite] 1 mg PO DAILY #30 tablet 08/04/21 08/29/21 Unknown Rx Glycerin/ Witch Barbara Pad [Tucks 1 each TP PRN PRN 30 Days #1 box 08/04/21 08/29/21 Unknown Rx Pad] Tamsulosin [Flomax] 0.4 mg PO QDAY 30 Days #30 capsule 08/29/21 Unknown Rx Thiamine [Vitamin B-1] 100 mg PO QDAY #30 tablet 08/29/21 Unknown Rx busPIRone [Buspar] 10 mg PO BID #30 tablet 08/29/21 Unknown Rx Ondansetron [Zofran ODT TAB] 4 mg PO Q8HR #10 tab.rapdis 09/06/21 Unknown Rx Aspirin EC [Halfprin EC] 81 mg PO QDAY 30 Days #30 tablet.dr 09/19/21 Unknown Rx AtorvaSTATin [Lipitor] 20 mg PO QHS 30 Days #30 tablet 09/19/21 Unknown Rx Furosemide [Lasix TAB] 40 mg PO QDAY 30 Days #30 tablet 09/19/21 Unknown Rx Pantoprazole [Protonix TAB] 40 mg PO QDAY 30 Days #30 tablet 09/19/21 Unknown Rx Spironolactone [Aldactone] 100 mg PO QDAY 30 Days #30 tab 09/19/21 Unknown Rx carvediloL [Coreg] 6.25 mg PO BID #60 tablet 09/19/21 Unknown Rx ED Physical Exam - General Limitations: No Limitations General appearance: alert, in no apparent distress, obese - Head Head exam: Present: atraumatic, normocephalic - Respiratory Respiratory exam: Present: normal lung sounds bilaterally. Absent: respiratory distress - Cardiovascular Cardiovascular Exam: Present: regular rate, normal rhythm, normal heart sounds - GI/Abdominal GI/Abdominal exam: Present: soft. Absent: distended, tenderness - Rectal Rectal exam: Present: deferred - Neurological Exam Neurological exam: Present: alert, oriented X3 - Psychiatric Psychiatric exam: Present: normal affect, normal mood - Skin Skin exam: Present: warm, dry, intact, normal color ED Course Vital Signs 09/21/21 13:45 Temperature 97.9 F Pulse Rate 65 Respiratory 20 Rate Blood Pressure 125/74 O2 Sat by Pulse 94 Oximetry ED Medical Decision Making - Lab Data Result diagrams: 09/21/21 19:59 09/21/21 19:59 - EKG Data -: EKG Interpreted by [facility] EKG shows normal: sinus rhythm, axis, intervals, QRS complexes, ST-T waves Rate: normal - Medical Decision Making Chest x-ray and EKG were normal. Troponin undetectable. Vital signs are unremarkable. Patient satting mid 90s on room air and appears to be in no respiratory distress. Patient encouraged to follow-up with [facility] well as [facility] as previously detailed in his recent discharge summary. Critical care attestation.: If time is entered above; I have spent that time in minutes in the direct care of this critically ill patient, excluding procedure time. ED Disposition Clinical Impression: Cirrhosis, Generalized abdominal pain Disposition: 01 HOME / SELF CARE / HOMELESS Is pt being admited?: No Condition: Stable Instructions: Abdominal Pain, Adult, [id number], Cirrhosis Additional Instructions: Please follow-up with [facility] as previously stated for continued management of your cirrhosis/liver disease. Time of Disposition: 23:06
[2021-09-22 00:17] LABS: Anisocytosis 1+; Basophils % (Manual) 0 % (0.0-1.8); Eosinophils % (Manual) 0 % (0.0-4.3); Total Cells Counted 100
[2021-09-22 00:18] LABS: Platelet Estimate Consistent w Auto
[2021-09-22 06:54] VITALS: BP 112/70
== END 2021-09-21 23:32 | disposition home or self-care (01) ==
LOC: ED 13:15
DX: R10.84 Generalized abdominal pain (principal); I10 Essential (primary) hypertension; K76.9 Liver disease, unspecified; M19.90 Unspecified osteoarthritis, unspecified site; J45.909 Unspecified asthma, uncomplicated; Z98.890 Other specified postprocedural states; Z87.891 Personal history of nicotine dependence; Z79.899 Other long term (current) drug therapy
CPT/HCPCS: 36415; 71045; 80053; 84484; 85007; 85025; 93005; 99283

== ENCOUNTER 2021-11-20 08:15 | Day surgery (SDC) | payer MEDICARE ==
[2021-11-20 10:57] LABS: INR 1.24 (0.87-1.13)
[2021-11-20] MEDS ORDERED: ALBUMIN HUMAN 25% (25 GM/100 ML) INJ IV ONE (12:47)
--- NOTE | 2021-11-20 13:01 | Ultrasound Report ---
ULTRASOUND-GUIDED PARACENTESIS INDICATION / CLINICAL INFORMATION: ASCITIS. PROCEDURE: The risks (including but not limited to bleeding, infection, and bowel injury) and benefits were expl ained to the patient and signed, informed consent was obtained. A time out procedure was performed. Ultrasound was used to evaluate the abdomen and locate the largest ascites fluid pocket. Once the sk in was marked, the procedure site was prepped and draped in the usual sterile fashion and lidocaine w as used for local anesthesia. A skin collin was made and a 6-[place] paracentesis catheter was placed. The patient was monitored closely throughout the procedure, and a total of 4.8 mL of dark blood col ored fluid was aspirated. No labs were ordered on the fluid. No sample submitted to lab. The patient tolerated the procedure well with no complications. IMPRESSION: 1. Successful ultrasound-guided paracentesis. Paracentesis appear dark blood in appearance Signer Name: Pedro Adan MD Signed: 11/20/2021 12:57 PM Workstation Name: [id number]
[2021-11-20 14:01] VITALS: BP 105/42
== END 2021-11-20 14:59 | disposition home or self-care (01) ==
LOC: CATHLABREC 08:15 → EDSTATUS 09:00 → CATHLABREC 14:59
DX: R18.8 Other ascites (principal); C22.0 Liver cell carcinoma; I10 Essential (primary) hypertension; I25.10 Atherosclerotic heart disease of native coronary artery without angina pectoris; E78.00 Pure hypercholesterolemia, unspecified; G47.30 Sleep apnea, unspecified; K21.9 Gastro-esophageal reflux disease without esophagitis; E66.9 Obesity, unspecified; F32.9 Major depressive disorder, single episode, unspecified; F41.9 Anxiety disorder, unspecified; Z88.5 Allergy status to narcotic agent; Z79.899 Other long term (current) drug therapy; Z79.82 Long term (current) use of aspirin; Z87.891 Personal history of nicotine dependence; Z95.5 Presence of coronary angioplasty implant and graft; Z68.41 Body mass index [BMI] 40.0-44.9, adult; Z72.89 Other problems related to lifestyle; Z91.81 History of falling; Z98.890 Other specified postprocedural states; M19.90 Unspecified osteoarthritis, unspecified site
CPT/HCPCS: 36415; 49083; 85610; 88112; P9047